=== PATIENT | female | born 1955 | race Caucasian/White ===

== ENCOUNTER 2023-07-14 13:52 | Emergency (ER) | payer MEDICARE, OTHER, BC, SELFPAY ==
[2023-07-14] VITALS (9 sets, daily range): BP systolic 141–175; BP diastolic 66–83; PULSE 70–73; RESP 13–22; TEMP 36.8; O2SAT 96; BMI 28.7
--- NOTE | 2023-07-14 14:10 | ED_ITS ---
<Statement entered by Tonya Pritchard DO - 07/14/23 22:19> I was consulted by the BRENDA, and we discussed the complexity of the problems being addressed. I approved the treatment and management plan for this patient's care in the emergency department, thus performing a substantive portion of the medical decision making. Tonya Pritchard DO Discharge Plan Disposition Patient Disposition: Home, Self-Care Condition: Good Prescriptions Prescriptions: New ciprofloxacin HCl 500 mg tablet 500 mg PO BID Qty: 20 0RF ketorolac 10 mg tablet 10 mg PO Q8H PRN (Reason: pain) 1 Days Qty: 10 0RF tamsulosin [Flomax] 0.4 mg capsule 0.4 mg PO HS Qty: 7 0RF oxycodone 5 mg tablet 5 mg PO Q8H PRN (Reason: pain) Qty: 12 0RF ondansetron 4 mg tablet,disintegrating 4 mg PO Q8H PRN (Reason: nausea and vomiting) 4 Days Qty: 12 0RF No Action aspirin 81 mg Tablet,Chewable 81 mg PO DAILY Referrals Follow up/Referrals: Provider,Referral, MD [Primary Care Provider] - See instructions Activity Restrictions/Add. Instructions Additional Instructions/Restrictions: Please strain all urine. Please save the stone should you catch it. Please call make a follow-up appointment with your PCP to recheck your sodium. Follow- up with PCP for any change or worsening of your symptoms or condition or return to ER as needed Clinical Impressions Clinical Impression: Complicated urinary tract infection, Hyponatremia, Ureterolithiasis Instructions Patient Instructions: DI for Acute Abdominal Pain Discharge ED Provider: Tonya Pritchard General Adult HPI <HELEN Maria - Last Filed: 07/14/23 18:45> General Chief complaint: Abdominal Pain Stated complaint: possible UTI Time Seen by Provider: 07/14/23 14:10 History of Present Illness HPI narrative: Patient presents with 6 days of bilateral lower quadrant pain, hematuria, left flank pain. Patient states that she gets frequent UTIs and called her PCP for an antibiotic but due to timing was not able to get any over the weekend. She spoke to PCP today who asked her to come to the ER for evaluation. Patient denies fever chest pain shortness of breath hemoptysis hematochezia melena nausea vomiting diarrhea but does endorse red urine Related Data Home Medications Medication Instructions Recorded Confirmed aspirin 81 mg chewable tablet 81 mg PO DAILY 07/14/23 07/14/23 Previous Rx's Medication Instructions Recorded ciprofloxacin HCl 500 mg tablet 500 mg PO BID #20 tabs 07/14/23 ketorolac 10 mg tablet 10 mg PO Q8H PRN pain 1 day #10 07/14/23 tabs ondansetron 4 mg disintegrating 4 mg PO Q8H PRN nausea and 07/14/23 tablet vomiting 4 days #12 tabs oxycodone 5 mg tablet 5 mg PO Q8H PRN pain #12 tabs 07/14/23 tamsulosin 0.4 mg capsule (Flomax) 0.4 mg PO HS #7 caps 07/14/23 Allergies Allergy/AdvReac Type Severity Reaction Status Date / Time Penicillins Allergy Intermediate Verified 07/14/23 14:31 Sulfa (Sulfonamide Allergy Intermediate Verified 07/14/23 14:31 Antibiotics) lisinopril Allergy Mild Cough Verified 07/14/23 14:50 PFSH <HELEN Maria - Last Filed: 07/14/23 18:45> [facility] Disclaimer: The information contained in this section may have been updated after the patient was seen, as this information can be updated by other users. Medical History (Updated 07/14/23 @ 18:42 by HELEN Maria) Hypertension Aortic dissection Social History (Updated 07/14/23 @ 18:45 by HELEN Maria) Smoking Status: Never smoker alcohol intake: never current occupational status: retired Travel in the last 8 weeks: None <HELEN Maria - Last Filed: 07/14/23 18:45> ROS Obtained: Yes Systems reviewed as appropriate & no additional complaints except as documented Physical Exam <HELEN Maria - Last Filed: 07/14/23 18:45> General General appearance: alert and in no apparent distress Head Head exam: atraumatic and normal inspection Eye Eye exam: Present normal appearance, PERRL and EOMI ENT ENT exam: Present normal exam, normal oropharynx and mucous membranes moist Neck Neck exam: Present normal inspection and full ROM Chest Chest inspection: Present normal inspection and symmetric chest wall rise Respiratory Respiratory exam: Present normal lung sounds bilaterally; Absent respiratory distress Cardiovascular Cardiovascular exam: Present regular rate and normal rhythm Abdominal Exam Abdominal exam: Present soft, tenderness and normal bowel sounds; Absent guarding or rebound Abdominal tenderness: Present RLQ and LLQ Extremities Exam Extremities exam: Present normal inspection and full ROM Back Exam Back exam: Present normal inspection, full ROM and CVA tenderness (L) Neurological Exam Neurological exam: Present alert and oriented X3 Psychiatric Psychiatric exam: Present normal affect and normal mood Skin Skin exam: Present warm, dry and normal color Medical Decision Making <HELEN Maria - Last Filed: 07/14/23 18:45> Medical Records Medical records reviewed: Yes I reviewed the patient's medical records. [place] Inquiry Pt receiving controlled substance: No Vital Signs: 07/14/23 14:19 07/14/23 14:30 07/14/23 15:30 Temperature 98.3 F Temperature Source Oral Pulse Rate 73 72 Pulse Rate [Right Radial] 72 Respiratory Rate 20 19 18 Blood Pressure 160/72 H Blood Pressure [Right Arm] 162/82 H Blood Pressure Mean 89 Blood Pressure Mean [Right Arm] 108 Blood Pressure Source Blood Pressure Source [Right Arm] Automatic Cuff Blood Pressure Position Blood Pressure Position [Right Arm] Sitting 02 Sat by Pulse Oximetry 96 Oxygen Delivery Method Room Air 07/14/23 16:01 07/14/23 17:00 07/14/23 17:30 Temperature Temperature Source Pulse Rate 71 70 Pulse Rate [Right Radial] Respiratory Rate 18 13 22 Blood Pressure 167/78 H 141/66 H 175/83 H Blood Pressure [Right Arm] Blood Pressure Mean 106 113 Blood Pressure Mean [Right Arm] Blood Pressure Source Blood Pressure Source [Right Arm] Blood Pressure Position Blood Pressure Position [Right Arm] 02 Sat by Pulse Oximetry Oxygen Delivery Method 07/14/23 18:01 07/14/23 18:30 07/14/23 19:06 Temperature 98.3 F Temperature Source Oral Pulse Rate 70 70 70 Pulse Rate [Right Radial] Respiratory Rate 18 18 20 Blood Pressure 145/67 H 164/72 H 164/72 H Blood Pressure [Right Arm] Blood Pressure Mean 124 102 Blood Pressure Mean [Right Arm] Blood Pressure Source Automatic Cuff Blood Pressure Source [Right Arm] Blood Pressure Position Sitting Blood Pressure Position [Right Arm] 02 Sat by Pulse Oximetry Oxygen Delivery Method Room Air Lab Data Lab results reviewed: Yes I reviewed the patient's lab results. Lab Results 07/14/23 13:57: Urine Color Donley, Urine Appearance Clear, Urine pH 7.0, Ur Specific [place] 1.010, Urine Protein 2+, Urine Glucose (UA) 1+, Urine Ketones Trace, Urine Blood Negative, Urine Nitrate Positive, Urine Bilirubin 1+ A, Urine Urobilinogen >=8.0, Ur Leukocyte Esterase 3+ A, Urine RBC 3-5, Urine WBC 20-50, Ur Squamous Epith Cells 3-5, Urine Bacteria 4+ 07/14/23 14:39: WBC 4.8, RBC 3.73 L, Hgb 11.6 L, Hct 35.8 L, MCV 96.1, MCH 31.1, MCHC 32.3, RDW 13.7, Plt Count 237, MPV 8.8, Neut % (Auto) 68.3, Lymph % (Auto) 21.8, [place] % (Auto) 7.0, Eos % (Auto) 2.3, Baso % (Auto) 0.7, Neut # (Auto) 3.3, Lymph # (Auto) 1.0, [place] # (Auto) 0.3, Eos # (Auto) 0.1, Baso # (Auto) 0.0, PT 10.5, INR 0.97, Sodium 126 L, Potassium 3.9, Chloride 92 L, Carbon Dioxide 31 H, Anion Gap 6.9, BUN 9, Creatinine 0.70, Estimated Creat Clear 60, Estimated GFR 83, Est GFR ( Amer) 100, Glucose 94, Calcium 8.6, Total Bilirubin 0.4, AST 35, ALT 23, Alkaline Phosphatase 98, Total Protein 6.3, Albumin 4.0, Globulin 2.3, Albumin/Globulin Ratio 1.7 07/14/23 15:00: Lactate 1.0 07/14/23 14:39 07/14/23 14:39 Orders (Tests/Meds): ED MEDICATIONS Discontinued Medications Generic Name Dose Route Start Last Admin Trade Name Freq PRN Reason Stop Dose Admin Acetaminophen 1,000 mg 07/14/23 14:18 07/14/23 14:38 Acetaminophen 1,000mg/100ml Vial IV 07/14/23 14:19 1,000 mg ONCE ONE Administration Lactated Ringer's 1,000 mls @ 999 mls/hr 07/14/23 14:18 07/14/23 14:38 Lactated Ringer's 1000 Ml Bag IV 07/14/23 15:18 999 mls/hr .Q1H1M ONE Administration Ceftriaxone Sodium 1 gm/ 50 mls @ 100 mls/hr 07/14/23 15:30 07/14/23 15:46 Sodium Chloride IV 07/24/23 15:29 100 mls/hr Q24H CHASE Administration Iopamidol 75 ml 07/14/23 16:02 07/14/23 16:03 Iopamidol-370 (76%);100ml Bottle IV 07/14/23 16:03 75 ml ONCE ONE Administration Ketorolac Tromethamine 15 mg 07/14/23 14:18 07/14/23 14:37 Ketorolac 30mg/Ml Vial IV 07/14/23 14:19 15 mg ONCE ONE Administration Ketorolac Tromethamine 15 mg 07/14/23 18:58 07/14/23 19:00 Ketorolac 30mg/Ml Vial IV 07/14/23 18:59 15 mg ONCE ONE Administration Sodium Chloride 10 ml 07/14/23 16:02 07/14/23 16:03 Sodium Chloride 0.9% 10ml Syr (Rad Only) IV 07/14/23 16:03 10 ml ONCE ONE Administration ORDERS Category Date Time Status CT abdomen pelvis w con Stat Cat Scan 07/14/23 14:18 Completed CBC w/Auto Diff [Complete Blood Count Auto Diff] Stat Lab 07/14/23 14:39 Completed CMP [Comprehensive Metabolic Panel] Stat Lab 07/14/23 14:39 Completed INR [Prothrombin Time INR] Stat Lab 07/14/23 14:39 Completed Lactic Acid Stat Lab 07/14/23 15:00 Completed UA [Urinalysis and Microscopic] Stat Lab 07/14/23 13:57 Completed Urine Culture(cathed specimen) Stat Micro 07/14/23 14:18 Received Medical Decision Narrative: In summary patient is a 68-year-old female who presents to the emergency department for evaluation of hematuria, bilateral lower quadrant pain and left flank pain. Patient is hemodynamically stable upon arrival, febrile. Physical exam is remarkable for bilateral lower quadrant tenderness and suprapubic tenderness along with left flank tenderness to percussion. Differential diagnosis includes kidney stone versus pyelonephritis versus cystitis versus complicated urinary tract infection etc. Initial workup will be conducted with otologic labs, CT scan of the abdomen pelvis with contrast, urine and urine culture. Initial interventions include Toradol Tylenol fluid bolus. Initial workup reviewed by me showed a normal white count with no shift, hyponatremia, and her urinalysis showed nitrite positive protein positive leukocyte Estrace positive urine but no blood suggesting that [id number] Azo is affecting the dipstick. CT scan of the abdomen pelvis shows via my informal interpretation mild hydroureteronephrosis and a nonobstructing stone in the mid distal right ureter, bladder wall is thickened and bladder is incompletely distended and the radiologist read is pending. Given those findings I called and discussed patient management with Dr. Del Rosario urology of [facility] and he advised that unless patient was hemodynamically unstable she could be initially managed outpatient with p.o. antibiotics and straining of all urine. Should any of those circumstances change she could obviously be admitted or transferred. He has shared decision making I discussed those options with the patient who was agreeable to attempt outpatient management. Upon repeat evaluation patient has no neurologic symptoms of hyponatremia and [place] Coma Score is 15 although I do not know whether this is acute or chronic as I have no labs to reference. Given this patient was given a dose of Rocephin here and a prescription for Cipro, Flomax and Toradol was called into her pharmacy. Patient advised to strain all urine. Patient was advised to follow- up with her PCP for recheck of her sodium. Patient to return to PCP or ER for any worsening and change in her symptoms including fever etc. <Jovi Fuentes MD - Last Filed: 07/15/23 07:24> Vital Signs: 07/14/23 14:19 07/14/23 14:30 07/14/23 15:30 Temperature 98.3 F Temperature Source Oral Pulse Rate 73 72 Pulse Rate [Right Radial] 72 Respiratory Rate 20 19 18 Blood Pressure 160/72 H Blood Pressure [Right Arm] 162/82 H Blood Pressure Mean 89 Blood Pressure Mean [Right Arm] 108 Blood Pressure Source Blood Pressure Source [Right Arm] Automatic Cuff Blood Pressure Position Blood Pressure Position [Right Arm] Sitting 02 Sat by Pulse Oximetry 96 Oxygen Delivery Method Room Air 07/14/23 16:01 07/14/23 17:00 07/14/23 17:30 Temperature Temperature Source Pulse Rate 71 70 Pulse Rate [Right Radial] Respiratory Rate 18 13 22 Blood Pressure 167/78 H 141/66 H 175/83 H Blood Pressure [Right Arm] Blood Pressure Mean 106 113 Blood Pressure Mean [Right Arm] Blood Pressure Source Blood Pressure Source [Right Arm] Blood Pressure Position Blood Pressure Position [Right Arm] 02 Sat by Pulse Oximetry Oxygen Delivery Method 07/14/23 18:01 07/14/23 18:30 07/14/23 19:06 Temperature 98.3 F Temperature Source Oral Pulse Rate 70 70 70 Pulse Rate [Right Radial] Respiratory Rate 18 18 20 Blood Pressure 145/67 H 164/72 H 164/72 H Blood Pressure [Right Arm] Blood Pressure Mean 124 102 Blood Pressure Mean [Right Arm] Blood Pressure Source Automatic Cuff Blood Pressure Source [Right Arm] Blood Pressure Position Sitting Blood Pressure Position [Right Arm] 02 Sat by Pulse Oximetry Oxygen Delivery Method Room Air Lab Data Lab Results 07/14/23 13:57: Urine Color Donley, Urine Appearance Clear, Urine pH 7.0, Ur Specific [place] 1.010, Urine Protein 2+, Urine Glucose (UA) 1+, Urine Ketones Trace, Urine Blood Negative, Urine Nitrate Positive, Urine Bilirubin 1+ A, Urine Urobilinogen >=8.0, Ur Leukocyte Esterase 3+ A, Urine RBC 3-5, Urine WBC 20-50, Ur Squamous Epith Cells 3-5, Urine Bacteria 4+ 07/14/23 14:39: WBC 4.8, RBC 3.73 L, Hgb 11.6 L, Hct 35.8 L, MCV 96.1, MCH 31.1, MCHC 32.3, RDW 13.7, Plt Count 237, MPV 8.8, Neut % (Auto) 68.3, Lymph % (Auto) 21.8, [place] % (Auto) 7.0, Eos % (Auto) 2.3, Baso % (Auto) 0.7, Neut # (Auto) 3.3, Lymph # (Auto) 1.0, [place] # (Auto) 0.3, Eos # (Auto) 0.1, Baso # (Auto) 0.0, PT 10.5, INR 0.97, Sodium 126 L, Potassium 3.9, Chloride 92 L, Carbon Dioxide 31 H, Anion Gap 6.9, BUN 9, Creatinine 0.70, Estimated Creat Clear 60, Estimated GFR 83, Est GFR ( Amer) 100, Glucose 94, Calcium 8.6, Total Bilirubin 0.4, AST 35, ALT 23, Alkaline Phosphatase 98, Total Protein 6.3, Albumin 4.0, Globulin 2.3, Albumin/Globulin Ratio 1.7 07/14/23 15:00: Lactate 1.0 Orders (Tests/Meds): ED MEDICATIONS Discontinued Medications Generic Name Dose Route Start Last Admin Trade Name Freq PRN Reason Stop Dose Admin Acetaminophen 1,000 mg 07/14/23 14:18 07/14/23 14:38 Acetaminophen 1,000mg/100ml Vial IV 07/14/23 14:19 1,000 mg ONCE ONE Administration Lactated Ringer's 1,000 mls @ 999 mls/hr 07/14/23 14:18 07/14/23 14:38 Lactated Ringer's 1000 Ml Bag IV 07/14/23 15:18 999 mls/hr .Q1H1M ONE Administration Ceftriaxone Sodium 1 gm/ 50 mls @ 100 mls/hr 07/14/23 15:30 07/14/23 15:46 Sodium Chloride IV 07/24/23 15:29 100 mls/hr Q24H CHASE Administration Iopamidol 75 ml 07/14/23 16:02 07/14/23 16:03 Iopamidol-370 (76%);100ml Bottle IV 07/14/23 16:03 75 ml ONCE ONE Administration Ketorolac Tromethamine 15 mg 07/14/23 14:18 07/14/23 14:37 Ketorolac 30mg/Ml Vial IV 07/14/23 14:19 15 mg ONCE ONE Administration Ketorolac Tromethamine 15 mg 07/14/23 18:58 07/14/23 19:00 Ketorolac 30mg/Ml Vial IV 07/14/23 18:59 15 mg ONCE ONE Administration Sodium Chloride 10 ml 07/14/23 16:02 07/14/23 16:03 Sodium Chloride 0.9% 10ml Syr (Rad Only) IV 07/14/23 16:03 10 ml ONCE ONE Administration ORDERS Category Date Time Status CT abdomen pelvis w con Stat Cat Scan 07/14/23 14:18 Completed CBC w/Auto Diff [Complete Blood Count Auto Diff] Stat Lab 07/14/23 14:39 Completed CMP [Comprehensive Metabolic Panel] Stat Lab 07/14/23 14:39 Completed INR [Prothrombin Time INR] Stat Lab 07/14/23 14:39 Completed Lactic Acid Stat Lab 07/14/23 15:00 Completed UA [Urinalysis and Microscopic] Stat Lab 07/14/23 13:57 Completed Urine Culture(cathed specimen) Stat Micro 07/14/23 14:18 Received Medical Decision Narrative: In summary patient is a 68-year-old female who presents to the emergency department for evaluation of hematuria, bilateral lower quadrant pain and left flank pain. Patient is hemodynamically stable upon arrival, febrile. Physical exam is remarkable for bilateral lower quadrant tenderness and suprapubic tenderness along with left flank tenderness to percussion. Differential diagnosis includes kidney stone versus pyelonephritis versus cystitis versus complicated urinary tract infection etc. Initial workup will be conducted with otologic labs, CT scan of the abdomen pelvis with contrast, urine and urine culture. Initial interventions include Toradol Tylenol fluid bolus. Initial workup reviewed by me showed a normal white count with no shift, hyponatremia, and her urinalysis showed nitrite positive protein positive leukocyte Estrace positive urine but no blood suggesting that [id number] Azo is affecting the dipstick. CT scan of the abdomen pelvis shows via my informal interpretation mild hydroureteronephrosis and a nonobstructing stone in the mid distal right ureter, bladder wall is thickened and bladder is incompletely distended and the radiologist read is pending. Given those findings I called and discussed patient management with Dr. Del Rosario urology of [facility] and he advised that unless patient was hemodynamically unstable she could be initially managed outpatient with p.o. antibiotics and straining of all urine. Should any of those circumstances change she could obviously be admitted or transferred. He has shared decision making I discussed those options with the patient who was agreeable to attempt outpatient management. Upon repeat evaluation patient has no neurologic symptoms of hyponatremia and [place] Coma Score is 15 although I do not know whether this is acute or chronic as I have no labs to reference. Given this patient was given a dose of Rocephin here and a prescription for Cipro, Flomax and Toradol was called into her pharmacy. Patient advised to strain all urine. Patient was advised to follow- up with her PCP for recheck of her sodium. Patient to return to PCP or ER for any worsening and change in her symptoms including fever etc. I was consulted by the BRENDA, and we discussed the complexity of the problems being addressed. I approved the treatment and management plan for this patient?s care in the Emergency Department, thus performing a substantive portion of the medical decision making. Jovi Fuentes MD Critical Care <HELEN Maria - Last Filed: 07/14/23 18:45> Critical Care Time Critical Care Time: No
--- NOTE | 2023-07-14 14:18 | CT_ITS ---
PROCEDURE INFORMATION: Exam: CT Abdomen And Pelvis With Contrast Exam date and time: 07/14/2023 3:42 PM Age: 68 years old Clinical indication: Abdominal pain; Additional info: Hematuria, left flank pain TECHNIQUE: Imaging protocol: Computed tomography of the abdomen and pelvis with contrast. Radiation optimization: All CT scans at this facility use at least one of these dose optimization techniques: automated exposure control; mA and/or kV adjustment per patient size (includes targeted exams where dose is matched to clinical indication); or iterative reconstruction. Contrast material: ISOVUE; Contrast volume: 75 ml; Contrast route: IV; COMPARISON: No relevant prior studies available. FINDINGS: Lungs: Bibasilar atelectasis versus parenchymal scarring. Liver: Hepatic granuloma Gallbladder and bile ducts: Cholecystectomy Pancreas: Pancreas unremarkable Spleen: The spleen is unremarkable. Adrenal glands: Adrenal glands unremarkable. Kidneys and ureters: No hydronephrosis. Mild right hydroureteronephrosis. Demonstration of 2 mm nonobstructing calculus in the mid right ureter. Stomach and bowel: mild-moderate stool burden Appearance of the proximal stomach compatible with Funmi fundoplication. Appendix: No evidence of appendicitis. Intraperitoneal space: Unremarkable. No free air. No significant fluid collection. Vasculature: Scattered regions of atherosclerotic vascular calcification within the abdominal aorta and common iliac arteries. Lymph nodes: Unremarkable. No enlarged lymph nodes. Urinary bladder: Mild thickening of the bladder wall may reflect incomplete distension. Could not exclude changes of cystitis. Reproductive: Hysterectomy Bones/joints: Lumbar spondylosis with multilevel disc degeneration. Soft tissues: Unremarkable. IMPRESSION: 1. Mild right hydroureteronephrosis. Demonstration of 2 mm nonobstructing calculus in the mid right ureter. 2. Mild thickening of the bladder wall may reflect incomplete distension. Could not exclude changes of cystitis.
[2023-07-14 14:29] LABS: Microscopic, Urine URINE MICROSCOPIC (MICROSCOPIC)
[2023-07-14 14:35] LABS: Appearance,Urine CLEAR (Clear); Blood, Urine Negative (Negative); Color,Urine ORANGE (Yellow); Glucose,Urine (UA) 1+ (Negative); Ketones,Urine TRACE (Negative); Leukocyte Esterase,Urine 3+ (Negative); Nitrate,Urine POSITIVE (Negative); Protein,Urine 2+ (Negative); Urobilinogen,Urine >=8.0 EU/dl (0.2)
[2023-07-14] MEDS: KETOROLAC 30MG/ML VIAL 15 MG IV ×2 (14:37→19:00)
[2023-07-14] MEDS: ACETAMINOPHEN 1,000MG/100ML VIAL 1000 MG IV (14:38)
[2023-07-14] MEDS: LACTATED RINGERS 1000ML 1,000 ML 999 ML IV (14:38)
[2023-07-14 14:39] LABS: Bilirubin,Urine 1+ (Negative)
[2023-07-14 14:50] LABS: Basophils % 0.7 % (0.1-2.0); Eosinophils # 0.1 K/mm3 (0.0-0.4); Eosinophils % 2.3 % (0.1-12.0); Hematocrit 35.8 % (37.0-47.0); Hemoglobin 11.6 g/dL (12.2-16.2); Lymphocytes % 21.8 % (10-50); Mean Corpuscular HGB Conc 32.3 g/dL (31.8-35.4); Mean Corpuscular Hemoglobin 31.1 pg (27.0-31.2); Mean Corpuscular Volume 96.1 fl (81-99); Mean Platelet Volume 8.8 fl (7.4-10.4); Monocytes # 0.3 K/mm3 (0.1-1.0); Neutrophils # 3.3 K/mm3 (1.8-7.8); Neutrophils % 68.3 % (37.0-80.0); Platelet Count 237 K/mm3 (142-424); Red Blood Count 3.73 M/mm3 (4.20-5.40); Red Cell Distribution Width 13.7 % (11.5-17.5); White Blood Count 4.8 K/mm3 (4.8-10.8)
[2023-07-14 14:58] LABS: Chloride 92 mmol/L (98-107); Sodium 126 mmol/L (136-145)
[2023-07-14 14:59] LABS: Potassium 3.9 mmoL/L (3.5-5.1)
[2023-07-14 15:01] LABS: Alanine Aminotransferase 23 U/L (12-78); Albumin/Globulin Ratio 1.7 (1.1-1.8); Alkaline Phosphatase 98 U/L (38-126); Anion Gap 6.9 mEq/L (5-15); Aspartate Amino Transferase 35 U/L (14-36); Bilirubin,Total 0.4 mg/dl (0.2-1.3); Blood Urea Nitrogen 9 mg/dl (7-17); Calcium 8.6 mg/dl (8.4-10.2); Carbon Dioxide 31 mmol/L (22.0-30.0); Creatinine Clearance Estimated 60 mL/min (50-200); Estimated Glomerular Filt Rate 83 ml/min (>60); GFR (African American) 100 ML/MIN (>60); Globulin 2.3 g/dL (1.3-3.2); Glucose 94 mg/dl (74-100); Total Protein,Serum 6.3 g/dl (6.3-8.2)
[2023-07-14 15:02] LABS: INR 0.97 (0.9-1.1); Prothrombin Time 10.5 seconds (10.1-12.5)
[2023-07-14 15:27] LABS: Bacteria,Urine 4+ /lpf; WBC,Urine 20-50 #/hpf (0-3)
[2023-07-14] MEDS: CEFTRIAXONE SODIUM 1 GM in 0.9 % SODIUM CHLORIDE 50 ML IV (15:46)
[2023-07-14] MEDS: SODIUM CHLORIDE 0.9% 10ML SYR (RAD ONLY) 10 ML IV (16:03)
[2023-07-14] MEDS: IOPAMIDOL-370 (76%);100ML BOTTLE 75 ML IV (16:03)
--- NOTE | 2023-07-14 17:07 | PC.NURSE ---
Pt ambulatory to bathroom and back to bed
--- NOTE | 2023-07-14 17:27 | PC.NURSE ---
placed call to [facility] for transfer for urology.
--- NOTE | 2023-07-14 17:40 | PC.NURSE ---
Pt ambulatory to [facility] without assistance.
--- NOTE | 2023-07-14 17:59 | PC.NURSE ---
placed call to [facility] transfer [place] for transfer for urology
--- NOTE | 2023-07-14 18:27 | PC.NURSE ---
st galindo Del Rosario on with Yahaira CERVANTES
--- NOTE | 2023-07-19 02:36 | PC.NURSE ---
notified Dr vela of preliminary urine culture no new orders @ this time. pending sensitivity and final results.
== END 2023-07-14 19:06 | disposition home or self-care (01) ==
PROVIDERS: Physician Assistant; Emergency Provider Emergency Medicine
DX: E87.1 Hypo-osmolality and hyponatremia (principal); N39.0 Urinary tract infection, site not specified; B96.1 Klebsiella pneumoniae [K. pneumoniae] as the cause of diseases classified elsewhere; N20.1 Calculus of ureter; N13.4 Hydroureter; I10 Essential (primary) hypertension; R10.30 Lower abdominal pain, unspecified
CPT/HCPCS: 36415; 74177; 80053; 81001; 83605; 85025; 85610; 87086; 96361; 96365; 96375; 96376; 99285; J0131; J0696; Q9967

== ENCOUNTER 2023-08-10 17:39 | Emergency (ER) | payer MEDICARE, MEDICAID, SELFPAY ==
[2023-08-10] VITALS (8 sets, daily range): BP systolic 129–162; BP diastolic 60–78; PULSE 67–75; RESP 16; TEMP 36.8; O2SAT 95–99; BMI 28.1
--- NOTE | 2023-08-10 18:11 | CT_ITS ---
PROCEDURE INFORMATION: Exam: CTA Abdomen and Pelvis With Contrast Exam date and time: 08/10/2023 7:37 PM Age: 68 years old Clinical indication: Abdominal pain; Generalized; Additional info: Abd pain, HX of dissection TECHNIQUE: Imaging protocol: Computed tomographic angiography of the abdomen and pelvis with contrast. Exam focused on the arteries. 3D rendering (Not supervised by radiologist): MIP and/or 3D reconstructed images were created by the technologist. Radiation optimization: All CT scans at this facility use at least one of these dose optimization techniques: automated exposure control; mA and/or kV adjustment per patient size (includes targeted exams where dose is matched to clinical indication); or iterative reconstruction. Contrast material: ISOVUE 370; Contrast volume: 100 ml; Contrast route: INTRAVENOUS (IV); COMPARISON: CT ABDOMEN PELVIS W CON 05/17/2023 15:42 FINDINGS: Aorta: The aorta demonstrates mild atherosclerotic disease. No aortic dissection. Celiac trunk and mesenteric arteries: No occlusion or significant stenosis. Renal arteries: Accessory left renal artery. Right iliac arteries: No occlusion or significant stenosis. Left iliac arteries: No occlusion or significant stenosis. 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 Liver: No mass. Gallbladder and bile ducts: Gallbladder is absent. Pancreas: Unremarkable. No mass. No ductal dilation. Spleen: Unremarkable. No splenomegaly. Adrenal glands: There is a left adrenal nodule measuring 9 mm in short axis. No follow-up imaging is warranted for a lesion of this size. Kidneys and ureters: Low attenuation renal lesions measuring up to 8 mm in diameter are incompletely characterized, but are likely cysts. No followup imaging is warranted. Stomach and bowel: Probable Funmi fundoplication. Gas-filled and mildly dilated segments of small bowel without a transition point. Appendix: The appendix is likely surgically absent. Intraperitoneal space: Unremarkable. No free air. No significant fluid collection. Lymph nodes: Unremarkable. No enlarged lymph nodes. Urinary bladder: Limited evaluation of the urinary bladder due to low urine volume. Reproductive: Status post hysterectomy. Bones/joints: No acute fracture. Soft tissues: Tiny fat containing umbilical hernia. Other findings: Please see separate report for CT chest. Stigmata of old granulomatous disease. IMPRESSION: 1. Limited evaluation of the urinary bladder due to low urine volume. Please exclude infection clinically. 2. Gas-filled and mildly dilated segments of small bowel without a transition point. This may represent ileus. Please exclude low-grade enterocolitis. 3. No aortic dissection.
--- NOTE | 2023-08-10 18:11 | CT_ITS ---
PROCEDURE INFORMATION: Exam: CTA Chest With Contrast Exam date and time: 08/10/2023 7:37 PM Age: 68 years old Clinical indication: Pain; Chest pressure; Additional info: Cp, back pain, HX aortic dissection TECHNIQUE: Imaging protocol: Computed tomographic angiography of the chest with contrast. Exam focused on the arteries. 3D rendering (Not supervised by radiologist): MIP and/or 3D reconstructed images were created by the technologist. Radiation optimization: All CT scans at this facility use at least one of these dose optimization techniques: automated exposure control; mA and/or kV adjustment per patient size (includes targeted exams where dose is matched to clinical indication); or iterative reconstruction. Contrast material: ISOVUE 370; Contrast volume: 100 ml; Contrast route: INTRAVENOUS (IV); COMPARISON: CT ANGIO ABDOMEN PELVIS 10/08/2023 19:37 FINDINGS: Tubes, catheters and devices: Endograft repair of the thoracic aorta from the mid arch to the distal descending thoracic aorta. Pulmonary arteries: Normal. No pulmonary emboli. 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 Aorta: Unremarkable. No aortic aneurysm. No aortic dissection. Thyroid: Postsurgical changes of the thyroid. Lungs: Mild centrilobular emphysema. Mild scarring and atelectasis in the lower lungs. Pleural spaces: Unremarkable. No pneumothorax. No pleural effusion. Heart: Cardiomegaly. Mitral valve calcifications. Small left-sided pericardial cyst, unchanged. Coronary arteries: Coronary artery calcifications. Lymph nodes: Unremarkable. No enlarged lymph nodes. Bones/joints: Unremarkable. No acute fracture. Soft tissues: Unremarkable. Other findings: Please see separate report for abdomen/pelvis. Stigmata of old granulomatous disease. IMPRESSION: Endograft repair of the thoracic aorta from the mid arch to the distal descending thoracic aorta. The hardware appears patent. There is no new dissection. COMMENTS: The presence of pulmonary emphysema on CT is an independent risk factor for lung cancer. In the absence of a history or active diagnosis of lung cancer, it is recommended that this patient with emphysema be evaluated for enrollment in a low dose CT lung cancer screening program.
--- NOTE | 2023-08-10 18:14 | XR_ITS ---
PROCEDURE INFORMATION: Exam: XR Chest Exam date and time: 08/10/2023 7:39 PM Age: 68 years old Clinical indication: Shortness of breath; Additional info: Cp TECHNIQUE: Imaging protocol: Radiologic exam of the chest. Views: 1 view. COMPARISON: CT ANGIO CHEST 10/08/2023 19:37 FINDINGS: Tubes, catheters and devices: Thoracic aortic endograft. Lungs: Mild scarring and atelectasis in the lower lungs. Pleural spaces: Unremarkable. No pleural effusion. No pneumothorax. Heart/Mediastinum: Borderline cardiomegaly. Bones/joints: Unremarkable. IMPRESSION: No acute findings.
--- NOTE | 2023-08-10 18:15 | HMH.EDGENADL ---
Discharge Plan Disposition Patient Disposition: Home, Self-Care Condition: Fair Prescriptions Prescriptions: New methocarbamol 500 mg tablet 500 mg PO TID PRN (Reason: pain) 5 Days Qty: 20 0RF lidocaine 5 % adhesive patch,medicated 1 patch topical Q24H 5 Days Qty: 15 0RF Rx Instructions: leave on most painful area for up to 12 hrs No Action aspirin 81 mg Tablet,Chewable 81 mg PO DAILY ciprofloxacin HCl 500 mg tablet 500 mg PO BID Qty: 20 0RF ketorolac 10 mg tablet 10 mg PO Q8H PRN (Reason: pain) 1 Days Qty: 10 0RF tamsulosin [Flomax] 0.4 mg capsule 0.4 mg PO HS Qty: 7 0RF oxycodone 5 mg tablet 5 mg PO Q8H PRN (Reason: pain) Qty: 12 0RF ondansetron 4 mg tablet,disintegrating 4 mg PO Q8H PRN (Reason: nausea and vomiting) 4 Days Qty: 12 0RF Referrals Follow up/Referrals: Kaan Escobar DO [Primary Care Provider] - See instructions Audrey Shepherd APRN [Staff Physician] - See instructions (Patient with history of IBS. Needs to follow-up with new earth science technical officer as soon as possible.) Activity Restrictions/Add. Instructions Additional Instructions/Restrictions: You have been evaluated in the ED for your complaints. You may follow-up with your PCP in the next 3 to 5 days. Please return to ED for any new or worsening symptoms. I have written for Robaxin and lidocaine patches to assist with pain between her shoulder blades. Please use these as needed. Please keep your appointment with your new PCP on this upcoming as discussed. They can address your chronic back pain. I have also placed referral to gastroenterology with Cora Ventura however he may follow-up with a earth science technical officer of your choosing concerning your IBS. Clinical Impressions Clinical Impression: Abdominal pain, Shoulder blade pain, Blood in stool, Diarrhea Instructions Patient Instructions: DI for Low Back Pain Discharge ED Provider: Willi Ren Adult [facility] General Chief complaint: Back Pain/Injury Stated complaint: Right side pain,fever,pain in shoulders Time Seen by Provider: 08/10/23 17:59 Mode of Arrival: Ambulatory Source of Information: Patient Limitations: No Limitations Description of Symptoms (Recalled from ER Triage Doc. by RN): Patient complaint of pain between her shoulder blades for 2 years. States that she has been trying to get her PCP to do xrays and they haven't been able to complete them. States she presents to the er because the pain has gotten worse. History of Present Illness HPI narrative: 68-year-old female with past medical history significant for anxiety, depression, PTSD, coronary artery disease, ureterolithiasis, hypertension, IBS, cholecystectomy, history of aortic dissection in 2013 with repair, presents today for evaluation concerning pain between her shoulder blades that has been worsening over the past couple of days. She also reports mid epigastric abdominal pain as well as right upper quadrant abdominal pain over the past day. She states over the weekend she was constipated and took Dulcolax and had a large bowel movement on yesterday. She states that she is also noted bright red blood in her stool today noting about a cup full in amount. She also states that she had a fever of 104.2 ?F. Reports intermittent chest pain over the past week. Denies any shortness of breath, dysuria, hematuria or any other associated symptoms at this time. Related Data Home Medications Medication Instructions Recorded Confirmed aspirin 81 mg chewable tablet 81 mg PO DAILY 07/14/23 07/14/23 Previous Rx's Medication Instructions Recorded ciprofloxacin HCl 500 mg tablet 500 mg PO BID #20 tabs 07/14/23 ketorolac 10 mg tablet 10 mg PO Q8H PRN pain 1 day #10 07/14/23 tabs ondansetron 4 mg disintegrating 4 mg PO Q8H PRN nausea and 07/14/23 tablet vomiting 4 days #12 tabs oxycodone 5 mg tablet 5 mg PO Q8H PRN pain #12 tabs 07/14/23 tamsulosin 0.4 mg capsule (Flomax) 0.4 mg PO HS #7 caps 07/14/23 lidocaine 5 % topical patch 1 patch topical Q24H 5 days #15 ea 08/10/23 methocarbamol 500 mg tablet 500 mg PO TID PRN pain 5 days #20 08/10/23 tabs Allergies Allergy/AdvReac Type Severity Reaction Status Date / Time Penicillins Allergy Intermediate Verified 07/14/23 14:31 Sulfa (Sulfonamide Allergy Intermediate Verified 07/14/23 14:31 Antibiotics) lisinopril Allergy Mild Cough Verified 07/14/23 14:50 PFSH PFSH Disclaimer: The information contained in this section may have been updated after the patient was seen, as this information can be updated by other users. Medical History (Updated 08/10/23 @ 21:52 by Willi Ren DO) Hypertension Aortic dissection Social History (Updated 07/14/23 @ 18:45 by HELEN Maria) Smoking Status: Unknown if ever smoked alcohol intake: never current occupational status: retired Travel in the last 8 weeks: None ROS Obtained: Yes All systems reviewed & no additional complaints except as documented Physical Exam General General appearance: alert and in no apparent distress Head Head exam: atraumatic and normocephalic Eye Eye exam: Present normal appearance, PERRL and EOMI ENT ENT exam: Present normal oropharynx and mucous membranes moist Neck Neck exam: Present full ROM; Absent meningismus Respiratory Respiratory exam: Absent respiratory distress, wheezes, stridor or accessory muscle use Cardiovascular Cardiovascular exam: Present normal rhythm Abdominal Exam Abdominal exam: Present soft and tenderness (Midepigastric and right upper quadrant); Absent distention, guarding, rebound or rigidity Back Exam Back exam: Present tenderness (Tenderness to palpation across the shoulder blades.) Neurological Exam Neurological exam: Present alert, oriented X3 and CN II-XII intact; Absent motor sensory deficit Psychiatric Psychiatric exam: Present normal affect and normal mood Skin Skin exam: Present warm and dry Medical Decision Making Medical Records Medical records reviewed: Yes I reviewed the patient's medical records. Cail Inquiry Pt receiving controlled substance: No Cail was queried for this patient: No Vital Signs: 08/10/23 17:42 08/10/23 18:16 Temperature 98.2 F Temperature Source Oral Pulse Rate 67 Pulse Rate [Radial] 68 Respiratory Rate 16 Blood Pressure 137/63 Blood Pressure [Right Arm] 141/74 H Blood Pressure Mean [Right Arm] 96 Blood Pressure Source [Right Arm] Automatic Cuff Blood Pressure Position [Right Arm] Sitting 02 Sat by Pulse Oximetry 99 95 Oxygen Delivery Method Room Air Room Air Lab Data Lab Results 08/10/23 18:20: WBC 3.7 L, RBC 3.60 L, Hgb 11.1 L, Hct 34.6 L, MCV 96.1, MCH 30.9, MCHC 32.1, RDW 14.1, Plt Count 238, MPV 8.8, Neut % (Auto) 59.1, Lymph % (Auto) 26.8, Borden % (Auto) 11.2 H, Eos % (Auto) 2.2, Baso % (Auto) 0.7, Neut # (Auto) 2.2, Lymph # (Auto) 1.0, Borden # (Auto) 0.4, Eos # (Auto) 0.1, Baso # (Auto) 0.0, PT 10.3, INR 0.95, Sodium 132 L, Potassium 3.4 L, Chloride 100, Carbon Dioxide 27, Anion Gap 8.4, BUN 20 H, Creatinine 0.70, Estimated Creat Clear 59, Estimated GFR 83, Est GFR ( Amer) 100, Glucose 131 H, Calcium 8.8, Total Bilirubin 0.4, AST 30, ALT 24, Alkaline Phosphatase 78, Troponin I < 0.01, Total Protein 6.2 L, Albumin 3.9, Globulin 2.3, Albumin/Globulin Ratio 1.7, Lipase 61 08/10/23 20:58: Lactate 0.9 08/10/23 18:20 08/10/23 18:20 Orders (Tests/Meds): ED MEDICATIONS Generic Name Dose Route Start Last Admin Trade Name Freq PRN Reason Stop Dose Admin Sodium Chloride 10 ml 08/10/23 19:38 08/10/23 19:41 Sodium Chloride 0.9% 10ml Syr (Rad Only) IV 09/09/23 19:37 10 ml NEEDED PRN Administration Maintain IV Site Discontinued Medications Generic Name Dose Route Start Last Admin Trade Name Freq PRN Reason Stop Dose Admin Iopamidol 100 ml 08/10/23 19:38 08/10/23 19:41 Iopamidol-370 (76%);100ml Bottle IV 08/10/23 19:39 100 ml ONCE ONE Administration Morphine Sulfate 4 mg 08/10/23 18:14 08/10/23 18:23 Morphine 4mg/Ml Syringe IV 08/10/23 18:15 4 mg ONCE ONE Administration Ondansetron HCl 4 mg 08/10/23 18:14 08/10/23 18:23 Ondansetron 4mg/2ml Vial IV 08/10/23 18:15 4 mg ONCE ONE Administration Oxycodone HCl 5 mg 08/10/23 21:39 08/10/23 21:48 Oxycodone 5mg Immediate Release Tablet PO 08/10/23 21:40 5 mg ONCE ONE Administration Sodium Chloride 50 ml 08/10/23 19:38 08/10/23 19:41 0.9 % Sodium Chloride 50 Ml Vial IV 08/10/23 19:39 50 ml ONCE ONE Administration ORDERS Category Date Time Status CT angio abdomen pelvis Stat Cat Scan 08/10/23 18:11 Completed CTA Chest [CT angio chest - dissection] Stat Cat Scan 08/10/23 18:11 Completed CXR --portable [XR chest portable] Stat Exams 08/10/23 18:14 Completed CBC w/Auto Diff [Complete Blood Count Auto Diff] Stat Lab 08/10/23 18:20 Completed CMP [Comprehensive Metabolic Panel] Stat Lab 08/10/23 18:20 Completed Lactic Acid Stat Lab 08/10/23 20:58 Completed Lipase Stat Lab 08/10/23 18:20 Completed PT/INR [Prothrombin Time INR] Stat Lab 08/10/23 18:20 Completed Trop I [Troponin I] Stat Lab 08/10/23 18:20 Completed Troponin I Q3H Lab 08/10/23 21:15 Ordered Troponin I Q3H Lab 08/11/23 00:15 Ordered ECG Data Tracing #1: I reviewed this ECG and interpreted as documented below: EKG personally inter by me. Normal sinus rhythm with a rate of 63 bpm. No ischemic changes. QTc 436. HEART Score History (anamnesis): Slightly suspicious ECG: Normal Age: >65 years Risk factors: Atherosclerosis history Troponin: </= normal limit HEART Score: 4 Medical Decision Narrative: 68-year-old female with past medical history significant for anxiety, depression, PTSD, coronary artery disease, ureterolithiasis, hypertension, IBS, cholecystectomy, history of aortic dissection in 2013 with repair, presents today for evaluation concerning pain between her shoulder blades that has been worsening over the past couple of days. She also reports mid epigastric abdominal pain as well as right upper quadrant abdominal pain over the past day. She states over the weekend she was constipated and took Dulcolax and had a large bowel movement on yesterday. She states that she is also noted bright red blood in her stool today noting about a cup full in amount. She also states that she had a fever of 104.2 ?F. Reports intermittent chest pain over the past week. On assessment, patient was medically stable and in no acute distress. She was afebrile. Chest was clear to auscultation bilaterally. Blood pressure with systolics in the 140s. The abdomen was soft and nondistended however was tender in the midepigastric and right upper quadrant regions. She did have tenderness across the shoulder blades bilaterally without external signs of trauma. No lower extremity edema. Other exam findings unremarkable differential diagnoses include but limited to aortic dissection, aortic aneurysm, ACS, musculoskeletal pain, GI bleed, seizure, among others. Patient's lab work today showed a WBC of 3.7, stable anemia with hemoglobin of 11.1. PT/INR 15.3/0.95. Sodium 132. Potassium 3.4. Lactate within range at 0.9. Lipase within range at 61. CT of the chest did not show any acute abnormalities. CT abdomen pelvis with findings concerning for possible ileus with enterocolitis. I did speak with Dr. Wick, general surgery on-call and discussed management. He believes the patient's symptoms today are likely due to an enteritis given her workup and findings. On reassessment she remains medically stable and in no acute distress. Abdominal pain improved however she is still having pain between her shoulder blades. She has an appointment this with her new PCP and will discuss her chronic pain between her shoulder blades during that time. I have also provided her with a referral for a new earth science technical officer as she does not have a provider in the setting of her IBS. I discussed that her management today is supportive. I will send her home with lidocaine patches and Robaxin to assist with her pain between her shoulder blades. She will continue to drink fluids as tolerated. She has been able to tolerate oral intake with solids and liquids while in the ED. She verbalized understanding and agreed with plan. Provided with return ED precautions. Subsequently discharged home in medically stable and in no acute distress Critical Care Critical Care Time Critical Care Time: No
[2023-08-10] MEDS: MORPHINE 4MG/ML SYRINGE 4 MG IV (18:23)
[2023-08-10] MEDS: ONDANSETRON 4MG/2ML VIAL 4 MG IV (18:23)
--- NOTE | 2023-08-10 18:31 | ECG_ITS ---
APPROVED REPORT Exam: Resting ECG HR:63 bpm ECG Measurements Heart Rate 63 AXES HI 152 P 71 QRSd 93 QRS 25 QT 429 T 58 QTc 436 Conclusion SINUS RHYTHM SEPTAL MYOCARDIAL INFARCTION , PROBABLY OLD [40+ ms Q WAVE IN V1/V2] ABNORMAL ECG UNCONFIRMED REPORT Electronically signed by : JENNY HESTER, 08/10/2023 19:10:31
[2023-08-10 18:36] LABS: Basophils % 0.7 % (0.1-2.0); Eosinophils # 0.1 K/mm3 (0.0-0.4); Eosinophils % 2.2 % (0.1-12.0); Hematocrit 34.6 % (37.0-47.0); Hemoglobin 11.1 g/dL (12.2-16.2); Lymphocytes % 26.8 % (10-50); Mean Corpuscular HGB Conc 32.1 g/dL (31.8-35.4); Mean Corpuscular Hemoglobin 30.9 pg (27.0-31.2); Mean Corpuscular Volume 96.1 fl (81-99); Mean Platelet Volume 8.8 fl (7.4-10.4); Monocytes # 0.4 K/mm3 (0.1-1.0); Monocytes % 11.2 % (1.7-9.3); Neutrophils # 2.2 K/mm3 (1.8-7.8); Neutrophils % 59.1 % (37.0-80.0); Platelet Count 238 K/mm3 (142-424); Red Cell Distribution Width 14.1 % (11.5-17.5); White Blood Count 3.7 K/mm3 (4.8-10.8)
[2023-08-10 18:37] LABS: Chloride 100 mmol/L (98-107); Sodium 132 mmol/L (136-145)
[2023-08-10 18:38] LABS: Potassium 3.4 mmoL/L (3.5-5.1)
[2023-08-10 18:40] LABS: Alanine Aminotransferase 24 U/L (12-78); Albumin Level 3.9 g/dl (3.5-5.0); Albumin/Globulin Ratio 1.7 (1.1-1.8); Alkaline Phosphatase 78 U/L (38-126); Anion Gap 8.4 mEq/L (5-15); Aspartate Amino Transferase 30 U/L (14-36); Bilirubin,Total 0.4 mg/dl (0.2-1.3); Blood Urea Nitrogen 20 mg/dl (7-17); Carbon Dioxide 27 mmol/L (22.0-30.0); Creatinine Clearance Estimated 59 mL/min (50-200); Estimated Glomerular Filt Rate 83 ml/min (>60); GFR (African American) 100 ML/MIN (>60); Globulin 2.3 g/dL (1.3-3.2); Total Protein,Serum 6.2 g/dl (6.3-8.2)
[2023-08-10 18:41] LABS: Calcium 8.8 mg/dl (8.4-10.2); Glucose 131 mg/dl (74-100); INR 0.95 (0.9-1.1); Prothrombin Time 10.3 seconds (10.1-12.5)
[2023-08-10 18:56] LABS: Troponin I < 0.01 ng/ml (0.00-0.034)
--- NOTE | 2023-08-10 19:16 | PC.NURSE ---
I notified radiology that scans were put in on the pt.
[2023-08-10] MEDS: 0.9 % SODIUM CHLORIDE 50 ML VIAL IV (19:41)
[2023-08-10] MEDS: IOPAMIDOL-370 (76%);100ML BOTTLE 100 ML IV (19:41)
[2023-08-10] MEDS: SODIUM CHLORIDE 0.9% 10ML SYR (RAD ONLY) 10 ML IV (19:41)
[2023-08-10 21:08] LABS: Lipase 61 U/L (23-300)
[2023-08-10 21:23] LABS: Lactic Acid 0.9 mmol/L (0.7-2.1)
[2023-08-10] MEDS: OXYCODONE 5MG IMMEDIATE RELEASE TABLET 5 MG PO (21:48)
== END 2023-08-10 22:01 | disposition home or self-care (01) ==
PROVIDERS: Emergency Provider Emergency Medicine; PCP Internal Medicine
DX: E87.1 Hypo-osmolality and hyponatremia (principal); E87.6 Hypokalemia; R10.13 Epigastric pain; K92.1 Melena; M54.6 Pain in thoracic spine; R19.7 Diarrhea, unspecified; I10 Essential (primary) hypertension
CPT/HCPCS: 71045; 71275; 74174; 80053; 83605; 83690; 84484; 85025; 85610; 93005; 96374; 96375; 99285; J2405; Q9967

== ENCOUNTER 2023-08-13 16:22 | Outpatient (CLI) | payer MEDICARE, MEDICAID, SELFPAY ==
[2023-08-13 16:59] LABS: D-Dimer 0.69 ug/mL (0.0-0.5)
[2023-08-13 17:30] LABS: Chloride 96 mmol/L (98-107); Potassium 3.7 mmoL/L (3.5-5.1); Sodium 132 mmol/L (136-145)
[2023-08-13 17:32] LABS: Bilirubin,Unconjugated 0.1 mg/dL (0.0-1.1); Blood Urea Nitrogen 8 mg/dl (7-17); Estimated Glomerular Filt Rate 99 ml/min (>60); GFR (African American) 120 ML/MIN (>60)
[2023-08-13 17:33] LABS: Alanine Aminotransferase 21 U/L (12-78); Albumin Level 4.2 g/dl (3.5-5.0); Alkaline Phosphatase 75 U/L (38-126); Anion Gap 9.7 mEq/L (5-15); Aspartate Amino Transferase 32 U/L (14-36); Bilirubin,Direct 0.3 mg/dl (0.0-0.4); Bilirubin,Total 0.3 mg/dl (0.2-1.3); Calcium 9.3 mg/dl (8.4-10.2); Carbon Dioxide 30 mmol/L (22.0-30.0); Cholesterol 152 mg/dl (140-200); Glucose 131 mg/dl (74-100); Total Protein,Serum 6.5 g/dl (6.3-8.2); Triglycerides 29 mg/dl (30-150); VLDL Cholesterol 6 mg/dL (0-40)
[2023-08-13 17:41] LABS: Chol/HDL Ratio 1.3 (1-3.5); HDL Cholesterol 120 mg/dl (40-60)
[2023-08-13 17:44] LABS: Direct LDL Cholesterol 41.06 mg/dL (100-129)
[2023-08-13 17:50] LABS: Triiodothryronine (T3) Uptake 30 % (23.5-40.5)
[2023-08-13 17:51] LABS: Free Thyroxine Index 3.2 ug/dL (5.93-13.13); T4 (Thyroxine) 10.7 ug/dl (5.53-11.0)
[2023-08-13 18:04] LABS: Thyroid Stimulating Hormone 0.05 uIU/mL (0.465-4.68)
[2023-08-20 10:14] LABS: Dopamine, Plasma < 30 pg/mL (0-48); Epinephrine, Plasma 19 pg/mL (0-62); Norepinephrine, Plasma 357 pg/mL (0-874)
[2023-08-20 23:36] LABS: Normetanephrine Plasma 78.9 pg/mL (0.0-285.2)
== END 2023-08-13 23:59 | disposition home or self-care (01) ==
PROVIDERS: Internal Medicine; PCP Internal Medicine; Visit Provider Family Medicine
DX: R06.09 Other forms of dyspnea (principal); Z95.828 Presence of other vascular implants and grafts; R07.89 Other chest pain; I50.20 Unspecified systolic (congestive) heart failure; I25.118 Atherosclerotic heart disease of native coronary artery with other forms of angina pectoris; I10 Essential (primary) hypertension; R60.9 Edema, unspecified; R42 Dizziness and giddiness; N39.0 Urinary tract infection, site not specified
CPT/HCPCS: 36415; 80048; 80061; 80076; 82088; 82384; 83835; 84244; 84436; 84443; 84479; 85378; 87086; 93270

== ENCOUNTER 2023-08-13 18:00 | Outpatient (CLI) | payer MEDICARE, MEDICAID, SELFPAY | END 2023-08-13 23:59 | disposition home or self-care (01) | LOC: LAB.DROPOF 08-14 14:22 | PROVIDERS: PCP Family Medicine; Visit Provider Family Medicine | DX: R06.09 Other forms of dyspnea (principal); R42 Dizziness and giddiness ==

== ENCOUNTER 2023-08-19 11:12 | Outpatient (CLI) | payer MEDICARE, MEDICAID, SELFPAY ==
--- NOTE | 2023-08-19 11:22 | CT_ITS ---
FINAL REPORT CLINICAL HISTORY: elevated d dimer COMPARISON: 08/10/2023 FINDINGS: Thin section axial CT images of the chest were obtained with contrast. 3D reformatted images were also obtained. This study was performed with techniques to keep radiation doses as low as reasonably achievable (ALARA). Individualized dose reduction techniques using automated exposure control or adjustment of mA and/or kV according to the patient's size were employed. There is no evidence of pulmonary embolism. There is a thoracic aortic stent graft. There is no evidence of thoracic aortic aneurysm or dissection. There is no evidence of mediastinal or hilar mass or adenopathy. Note is made of mild emphysema. There is a 21 mm nodule adjacent to the left heart border. Limited images of the upper abdomen reveal cholecystectomy. IMPRESSION: No evidence of pulmonary embolism. Nodule adjacent to the left heart border. Recommend PET-CT. Findings were reported to Maci Brito, nurse practitioner on 08/19/2023 at 1:40 p.m. Reviewed, Interpreted and Dictated by Raf Horner III, MD Transcribed by Pilar Onofre Authenticated and [facility]
[2023-08-19] MEDS: IOPAMIDOL-370 (76%);100ML BOTTLE 70 ML IV (11:58)
[2023-08-19] MEDS: 0.9 % SODIUM CHLORIDE 50 ML VIAL IV (11:58)
[2023-08-19] MEDS: SODIUM CHLORIDE 0.9% 10ML SYR (RAD ONLY) 10 ML IV (11:58)
== END 2023-08-19 23:59 | disposition home or self-care (01) ==
LOC: RAD 11:16
PROVIDERS: PCP Internal Medicine; Visit Provider Nurse Practitioner Family
DX: R79.89 Other specified abnormal findings of blood chemistry (principal); I51.89 Other ill-defined heart diseases
CPT/HCPCS: 71275; Q9967

== ENCOUNTER 2023-08-26 07:50 | Outpatient (CLI) | payer MEDICARE, MEDICAID, SELFPAY ==
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
--- NOTE | 2023-08-26 08:21 | US_ITS ---
FINAL REPORT CLINICAL HISTORY: . htn COMPARISON: None FINDINGS: RENAL ULTRASOUND: The right kidney measures 9.8 cm in sagittal length. No evidence of focal mass or hydronephrosis is identified. The left kidney measures 9.1 cm in sagittal length. No evidence of focal mass or hydronephrosis is identified. IMPRESSION: Unremarkable renal ultrasound. Reviewed, Interpreted and Dictated by Raf Horner III, MD Transcribed by Larissa Khan Authenticated and [facility]
== END 2023-08-26 23:59 | disposition home or self-care (01) ==
LOC: RT 07:50
PROVIDERS: PCP Internal Medicine; Visit Provider Internal Medicine
DX: I10 Essential (primary) hypertension (principal); N39.0 Urinary tract infection, site not specified
CPT/HCPCS: 76770; 93976

== ENCOUNTER 2023-09-27 21:41 | Emergency (ER) | payer MEDICARE, MEDICAID, SELFPAY ==
[2023-09-27 21:42] VITALS: BP 155/79; PULSE 75; RESP 16; TEMP 36.5; O2SAT 96; BMI 28.1
--- NOTE | 2023-09-27 22:28 | PC.NURSE ---
CALLED HOUSE AFTER REGISTRATION STATED SHE WANTS TO TALK TO A NURSE . REQUESTED HER ASSISTANCE ALL NURSING STAFF IS CURRENTLY WITH PATIENTS.
--- NOTE | 2023-09-27 22:43 | ED_ITS ---
Discharge Plan Disposition Chief Complaint: Extremity Injury, Lower Prescriptions Prescriptions: No Action gabapentin 300 mg capsule PO atorvastatin 40 mg tablet PO venlafaxine 75 mg capsule,extended release 24hr PO mirabegron [Myrbetriq] 25 mg tablet extended release 24 hr 25 mg PO DAILY Qty: 30 2RF Dupixent Syringe 300 mg/2 mL syringe 300 mg SQ WEEKLY Qty: 4 3RF levothyroxine [Synthroid] 112 mcg tablet 112 mcg PO DAILY Qty: 90 0RF valsartan-hydrochlorothiazide 320-12.5 mg tablet 1 tab PO DAILY Qty: 30 5RF diphenoxylate-atropine 2.5-0.025 mg tablet 1 tab PO Q6H PRN (Reason: IBS) Qty: 30 0RF nitroglycerin 0.3 mg tablet, sublingual 0.3 mg sublingual Q5M PRN (Reason: chest pain) Qty: 20 0RF Rx Instructions: do not exceed 3 doses per episode aspirin 81 mg Tablet,Chewable 81 mg PO DAILY oxycodone 5 mg tablet 5 mg PO Q8H PRN (Reason: pain) Qty: 12 0RF ondansetron 4 mg tablet,disintegrating 4 mg PO Q8H PRN (Reason: nausea and vomiting) 4 Days Qty: 12 0RF methocarbamol 500 mg tablet 500 mg PO TID PRN (Reason: pain) 5 Days Qty: 20 0RF lidocaine 5 % adhesive patch,medicated 1 patch topical Q24H 5 Days Qty: 15 0RF Rx Instructions: leave on most painful area for up to 12 hrs Referrals Follow up/Referrals: Kana Escobar DO [Primary Care Provider] - See instructions Activity Restrictions/Add. Instructions Additional Instructions/Restrictions: Please follow-up with your primary care provider. Please return to the emergency department if you develop any new or worsening symptoms or become concerned for your health. Clinical Impressions Clinical Impression: Acute ankle pain Discharge ED Provider: Jonnathan Vick General Adult HPI <HELEN Maria - Last Filed: 09/27/23 23:07> General Chief complaint: Extremity Injury, Lower Stated complaint: r ankle pain ao stepped on step twisted Time Seen by Provider: 09/27/23 22:43 History of Present Illness HPI narrative: Patient reports that she was walking out of her house and stepped with her right foot everting her right ankle. Patient reports difficulty in bearing weight then and now. She denies any numbness tingling. Related Data Home Medications Medication Instructions Recorded Confirmed aspirin 81 mg chewable tablet 81 mg PO DAILY 07/14/23 08/27/23 atorvastatin 40 mg tablet mg PO 08/13/23 08/27/23 gabapentin 300 mg capsule mg PO 08/13/23 08/27/23 venlafaxine 75 mg capsule,extended mg PO 08/13/23 08/27/23 release 24 hr Previous Rx's Medication Instructions Recorded ondansetron 4 mg disintegrating 4 mg PO Q8H PRN nausea and 07/14/23 tablet vomiting 4 days #12 tabs oxycodone 5 mg tablet 5 mg PO Q8H PRN pain #12 tabs 07/14/23 lidocaine 5 % topical patch 1 patch topical Q24H 5 days #15 ea 08/10/23 methocarbamol 500 mg tablet 500 mg PO TID PRN pain 5 days #20 08/10/23 tabs dupilumab 300 mg/2 mL subcutaneous 300 mg (2 mL) SQ WEEKLY #4 mL 08/28/23 syringe (Dupixent) mirabegron 25 mg tablet,extended 25 mg PO DAILY #30 tabs 08/28/23 release 24 hr (Myrbetriq) diphenoxylate-atropine 2.5 1 tab PO Q6H PRN IBS #30 tabs 09/15/23 mg-0.025 mg tablet levothyroxine 112 mcg tablet 112 mcg PO DAILY #90 tabs 09/15/23 (Synthroid) valsartan 320 1 tab PO DAILY #30 tabs 09/15/23 mg-hydrochlorothiazide 12.5 mg tablet nitroglycerin 0.3 mg sublingual 0.3 mg sublingual Q5M PRN chest 09/18/23 tablet pain #20 tabs Allergies Allergy/AdvReac Type Severity Reaction Status Date / Time Penicillins Allergy Intermediate Verified 08/27/23 15:10 Sulfa (Sulfonamide Allergy Intermediate Verified 08/27/23 15:10 Antibiotics) lisinopril Allergy Mild Cough Verified 08/27/23 15:10 [facility] <HELEN Maria - Last Filed: 09/27/23 23:07> [facility] Disclaimer: The information contained in this section may have been updated after the patient was seen, as this information can be updated by other users. Medical History Hypertension Aortic dissection Social History Smoking Status: Never smoker alcohol intake: never current occupational status: retired Travel in the last 8 weeks: None <HELEN Maria - Last Filed: 09/27/23 23:07> ROS Obtained: Yes Systems reviewed as appropriate & no additional complaints except as documented Physical Exam <HELEN Maria - Last Filed: 09/27/23 23:07> General General appearance: alert and in no apparent distress Respiratory Respiratory exam: Present normal lung sounds bilaterally Cardiovascular Cardiovascular exam: Present regular rate and normal rhythm Neurological Exam Neurological exam: Present alert and oriented X3 Other Other exam information: Patient has swelling and ecchymosis to the lateral aspect of her right ankle with no obvious bony deformity. She is neurovascular intact distally. Medical Decision Making <HELEN Maria - Last Filed: 09/27/23 23:07> [place] Inquiry Pt receiving controlled substance: No Vital Signs: 09/27/23 21:42 09/27/23 23:00 09/27/23 23:30 Temperature 97.7 F Temperature Source Oral Pulse Rate 66 66 Pulse Rate [Right] 75 Respiratory Rate 16 20 18 Blood Pressure 131/75 152/64 H Blood Pressure [Right Arm] 155/79 H Blood Pressure Mean [Right Arm] 104 Blood Pressure Source [Right Arm] Automatic Cuff Blood Pressure Position [Right Arm] Sitting 02 Sat by Pulse Oximetry 96 96 95 Oxygen Delivery Method Room Air Room Air Room Air Orders (Tests/Meds): ED MEDICATIONS Discontinued Medications Generic Name Dose Route Start Last Admin Trade Name Freq PRN Reason Stop Dose Admin Acetaminophen 1,000 mg 09/27/23 23:07 09/27/23 23:17 Acetaminophen 500mg Tab PO 09/27/23 23:08 1,000 mg ONCE ONE Administration Oxycodone HCl 5 mg 09/27/23 23:07 09/27/23 23:18 Oxycodone 5mg Immediate Release Tablet PO 09/27/23 23:08 5 mg ONCE ONE Administration ORDERS Category Date Time Status Ankle XR -Right minimum 3 Views [XR ankle RT min 3V] Exams 09/27/23 22:54 Completed Stat Foot XR right 2 views [XR foot RT 2V] Stat Exams 09/27/23 22:54 Completed Tibia/fibula XR right 2 views [XR tibia fibula RT 2V] Exams 09/27/23 22:54 Completed Stat Medical Decision Narrative: In summary patient is a 68-year-old female who presents to the emergency department for evaluation of right ankle injury. Patient is hemodynamically stable upon arrival, afebrile. Physical exam is remarkable for ecchymosis and tenderness to palpation of the right ankle with no evidence of bony deformity on palpation neurovascular tact distally. Differential diagnosis includes sprain versus ankle. Initial workup will be conducted with plain film x-ray. Initial interventions include Toradol and Tylenol. Initial workup is pending at the time of handoff to Dr. Vick at 2300 hrs. <Jonnathan Vick MD - Last Filed: 09/28/23 00:46> Vital Signs: 09/27/23 21:42 09/27/23 23:00 09/27/23 23:30 Temperature 97.7 F Temperature Source Oral Pulse Rate 66 66 Pulse Rate [Right] 75 Respiratory Rate 16 20 18 Blood Pressure 131/75 152/64 H Blood Pressure [Right Arm] 155/79 H Blood Pressure Mean [Right Arm] 104 Blood Pressure Source [Right Arm] Automatic Cuff Blood Pressure Position [Right Arm] Sitting 02 Sat by Pulse Oximetry 96 96 95 Oxygen Delivery Method Room Air Room Air Room Air Orders (Tests/Meds): ED MEDICATIONS Discontinued Medications Generic Name Dose Route Start Last Admin Trade Name Danyq PRN Reason Stop Dose Admin Acetaminophen 1,000 mg 09/27/23 23:07 09/27/23 23:17 Acetaminophen 500mg Tab PO 09/27/23 23:08 1,000 mg ONCE ONE Administration Oxycodone HCl 5 mg 09/27/23 23:07 09/27/23 23:18 Oxycodone 5mg Immediate Release Tablet PO 09/27/23 23:08 5 mg ONCE ONE Administration ORDERS Category Date Time Status Ankle XR -Right minimum 3 Views [XR ankle RT min 3V] Exams 09/27/23 22:54 Completed Stat Foot XR right 2 views [XR foot RT 2V] Stat Exams 09/27/23 22:54 Completed Tibia/fibula XR right 2 views [XR tibia fibula RT 2V] Exams 09/27/23 22:54 Completed Stat Medical Decision Narrative: In summary patient is a 68-year-old female who presents to the emergency department for evaluation of right ankle injury. Patient is hemodynamically stable upon arrival, afebrile. Physical exam is remarkable for ecchymosis and tenderness to palpation of the right ankle with no evidence of bony deformity on palpation neurovascular tact distally. Differential diagnosis includes sprain versus ankle. Initial workup will be conducted with plain film x-ray. Initial interventions include Toradol and Tylenol. Initial workup is pending at the time of handoff to Dr. Vick at 2300 hrs. Nava KATE: I assumed care of the patient at the time of handoff from the prior provider. On reassessment patient chano stable. Radiographs independently interpreted by me and show no evidence of acute fracture or dislocation. These findings were communicated to patient and she was discharged in stable condition with instructions regarding symptomatic care. I was consulted by the BRENDA, and we discussed the complexity of the problems being addressed. I approved the treatment and management plan for this patient?s care in the Emergency Department, thus performing a substantive portion of the medical decision making. Jonnathan Vick MD Critical Care <HELEN Maria - Last Filed: 09/27/23 23:07> Critical Care Time Critical Care Time: No
--- NOTE | 2023-09-27 22:54 | XR_ITS ---
PROCEDURE INFORMATION: Exam: XR Right Tibia and Fibula Exam date and time: 09/27/2023 10:54 PM Age: 68 years old Clinical indication: Injury or trauma; Fall; Sprain or strain; Ankle and foot; Right TECHNIQUE: Imaging protocol: Radiologic exam of the right tibia and fibula. Views: 2 views. COMPARISON: CR XR ANKLE RT MIN 3V 09/27/2023 10:54 PM FINDINGS: Bones/joints: Normal. Soft tissues: Normal. IMPRESSION: No acute findings.
--- NOTE | 2023-09-27 22:54 | XR_ITS ---
PROCEDURE INFORMATION: Exam: XR Right Foot Exam date and time: 09/27/2023 10:54 PM Age: 68 years old Clinical indication: Injury or trauma; Fall; Sprain or strain; Ankle and foot; Right TECHNIQUE: Imaging protocol: Radiologic exam of the right foot. Views: 1 or 2 views. COMPARISON: CR XR ANKLE RT MIN 3V 09/27/2023 10:54 PM FINDINGS: Bones/joints: The osseous structures appear intact with no evidence of acute fracture, dislocation, or malalignment. Joint spaces are preserved. No abnormal bone density or destructive lesions are noted. Soft tissues: Soft tissues appear unremarkable. IMPRESSION: At the time of imaging, there is no evidence for acute osseous abnormalities.
--- NOTE | 2023-09-27 22:54 | XR_ITS ---
PROCEDURE INFORMATION: Exam: XR Right Ankle Exam date and time: 09/27/2023 10:54 PM Age: 68 years old Clinical indication: Injury or trauma; Fall; Sprain or strain; Ankle and foot; Right TECHNIQUE: Imaging protocol: Radiologic exam of the right ankle. Views: 3 or more views. COMPARISON: CR XR FOOT RT 2V 09/27/2023 10:54 PM FINDINGS: Bones/joints: The osseous structures appear intact with no evidence of acute fracture, dislocation, or malalignment. Joint spaces are preserved. No abnormal bone density or destructive lesions are noted. Soft tissues: Soft tissues appear unremarkable. IMPRESSION: At the time of imaging, there is no evidence for acute osseous abnormalities.
[2023-09-27 23:00] VITALS: BP 131/75; PULSE 66; RESP 20; O2SAT 96
--- NOTE | 2023-09-27 23:10 | PC.NURSE ---
patient assisted to bathroom
[2023-09-27] MEDS: ACETAMINOPHEN 500MG TAB 1000 MG PO (23:17)
[2023-09-27] MEDS: OXYCODONE 5MG IMMEDIATE RELEASE TABLET 5 MG PO (23:18)
[2023-09-27 23:30] VITALS: BP 152/64; PULSE 66; RESP 18; O2SAT 95
[2023-09-28] MEDS: KETOROLAC 30MG/ML VIAL 15 MG IM (00:58)
[2023-09-28 01:12] VITALS: BP 144/67; PULSE 66; RESP 17; TEMP 36.7; O2SAT 94
== END 2023-09-28 01:12 | disposition home or self-care (01) ==
PROVIDERS: Emergency Provider Emergency Medicine; PCP Internal Medicine
DX: M25.571 Pain in right ankle and joints of right foot (principal); X50.1XXA Overexertion from prolonged static or awkward postures, initial encounter
CPT/HCPCS: 73590; 73610; 73620; 96372; 96374; 99284; J1885

== ENCOUNTER 2023-10-07 10:32 | Outpatient (CLI) | payer MEDICARE, MEDICAID, SELFPAY | END 2023-10-07 23:59 | disposition home or self-care (01) | LOC: LAB.DROPOF 10-08 10:32 | PROVIDERS: PCP Family Medicine; Visit Provider Family Medicine | DX: N39.0 Urinary tract infection, site not specified (principal); B96.1 Klebsiella pneumoniae [K. pneumoniae] as the cause of diseases classified elsewhere | CPT/HCPCS: 87086; 87088; 87186 ==

== ENCOUNTER 2023-10-18 11:53 | Emergency (ER) | payer MEDICARE, SELFPAY ==
--- NOTE | 2023-10-18 11:55 | ED_ITS ---
Discharge Plan Disposition Patient Disposition: Home, Self-Care Prescriptions Prescriptions: New oxycodone 5 mg tablet 5 mg PO Q8H PRN (Reason: pain (scale score 7-10)) Qty: 9 0RF Rx Instructions: Please take only after Tylenol and ibuprofen have not worked promethazine 25 mg tablet 25 mg PO TID PRN (Reason: nausea and vomiting) Qty: 12 0RF No Action nitroglycerin 0.3 mg tablet, sublingual 0.3 mg sublingual Q5M PRN (Reason: chest pain) Qty: 20 0RF Rx Instructions: do not exceed 3 doses per episode diphenoxylate-atropine 2.5-0.025 mg tablet 1 tab PO Q6H PRN (Reason: IBS) Qty: 30 0RF ciprofloxacin HCl 250 mg tablet 250 mg PO BID 5 Days Qty: 10 0RF Vraylar 1.5 mg capsule 1.5 mg PO DAILY Qty: 30 2RF gabapentin 300 mg capsule 300 mg PO BID Qty: 60 2RF atorvastatin 40 mg tablet PO venlafaxine 75 mg capsule,extended release 24hr PO mirabegron [Myrbetriq] 25 mg tablet extended release 24 hr 25 mg PO DAILY Qty: 30 2RF Dupixent Syringe 300 mg/2 mL syringe 300 mg SQ WEEKLY Qty: 4 3RF levothyroxine [Synthroid] 112 mcg tablet 112 mcg PO DAILY Qty: 90 0RF valsartan-hydrochlorothiazide 320-12.5 mg tablet 1 tab PO DAILY Qty: 30 5RF aspirin 81 mg Tablet,Chewable 81 mg PO DAILY ondansetron 4 mg tablet,disintegrating 4 mg PO Q8H PRN (Reason: nausea and vomiting) 4 Days Qty: 12 0RF methocarbamol 500 mg tablet 500 mg PO TID PRN (Reason: pain) 5 Days Qty: 20 0RF lidocaine 5 % adhesive patch,medicated 1 patch topical Q24H 5 Days Qty: 15 0RF Rx Instructions: leave on most painful area for up to 12 hrs Referrals Follow up/Referrals: Alicia Muñiz APRN [Primary Care Provider] - See instructions Activity Restrictions/Add. Instructions Additional Instructions/Restrictions: At this time it was felt you are safe to be discharged home. If new or worsening symptoms please do not hesitate to return the emergency department. On your CT scan today it looks like there is a 3 mm kidney stone although it may be a piece of metal from a previous operation or a benign calcification and it is difficult to tell exactly if it is a kidney stone or not. However with your pain I would treat it as a kidney stone and given that it is 3 mm and will pass on its own. Please take Tylenol 1000 mg and ibuprofen 600 mg every 6 hours. Please follow-up with your family doctor in 10 to 15 days if symptoms persist. Clinical Impressions Clinical Impression: Ureterolithiasis, Diarrhea, Vomiting Discharge ED Provider: Osorio Ndiaye General Adult HPI <Osorio Ndiaye MD - Last Filed: 10/18/23 15:20> General Chief complaint: Weakness Stated complaint: abd pain vomiting fever Time Seen by Provider: 10/18/23 11:55 History of Present Illness HPI narrative: The patient presents with a chief complaint of constant bowel problems, which started yesterday afternoon but have been causing pain for approximately one week. The pain has recently worsened. The patient reports having a PET scan last month that showed inflammation in the colon and heart, and is scheduled for an upcoming stress test. She experiences constant cramping and diarrhea. She reported chest pain yesterday, which required two nitroglycerin tablets. The pain was described as sharp and lasted about 32 seconds. There is also a report of constant abdominal pain, which has been present for about a week and a half. She experiences difficulty finding a comfortable position and has been experiencing leg pain during sleep. The patient has a history of kidney stones on the right side and is currently experiencing diarrhea, bloating, and difficulty eating hearty meals due to a sensation of fullness. No blood in the stool has been observed recently, and she reports increased emotional sensitivity. She is on new medication. The pain is localized in the stomach and has not changed location. She experiences pain during urination and in the back on the right side. There is pain reported in the lower abdomen and lower back, which does not appear to spread to other areas. Please note that above description of symptoms, in this electronic medical record under categorization of recalled from ER triage doctor by RN are reflective of an initial nursing assessment, however, is not reflective of my full history and physical exam that was personally taken and clarified. Consequentially, this preceding description of symptoms, which may include the patient's categorized chief complaint in the EMR, do not reflect my personal clinical impression, and the ultimate description of history of present illness and patient stated complaints should be deferred to this section of the note. Unless stated otherwise or congruent with this section of the note, additional signs, symptoms, or incongruence should be interpreted as inaccurate with my clinical impression. Related Data Home Medications Medication Instructions Recorded Confirmed aspirin 81 mg chewable tablet 81 mg PO DAILY 07/14/23 10/07/23 atorvastatin 40 mg tablet mg PO 08/13/23 10/07/23 venlafaxine 75 mg capsule,extended mg PO 08/13/23 10/07/23 release 24 hr Previous Rx's Medication Instructions Recorded ondansetron 4 mg disintegrating 4 mg PO Q8H PRN nausea and 07/14/23 tablet vomiting 4 days #12 tabs lidocaine 5 % topical patch 1 patch topical Q24H 5 days #15 ea 08/10/23 methocarbamol 500 mg tablet 500 mg PO TID PRN pain 5 days #20 08/10/23 tabs dupilumab 300 mg/2 mL subcutaneous 300 mg (2 mL) SQ WEEKLY #4 mL 08/28/23 syringe (Dupixent) mirabegron 25 mg tablet,extended 25 mg PO DAILY #30 tabs 08/28/23 release 24 hr (Myrbetriq) levothyroxine 112 mcg tablet 112 mcg PO DAILY #90 tabs 09/15/23 (Synthroid) valsartan 320 1 tab PO DAILY #30 tabs 09/15/23 mg-hydrochlorothiazide 12.5 mg tablet cariprazine 1.5 mg capsule 1.5 mg PO DAILY mdd #30 caps 10/07/23 (Vraylar) ciprofloxacin HCl 250 mg tablet 250 mg PO BID 5 days #10 tabs 10/07/23 diphenoxylate-atropine 2.5 1 tab PO Q6H PRN IBS #30 tabs 10/07/23 mg-0.025 mg tablet nitroglycerin 0.3 mg sublingual 0.3 mg sublingual Q5M PRN chest 10/07/23 tablet pain #20 tabs gabapentin 300 mg capsule 300 mg PO BID #60 caps 10/08/23 oxycodone 5 mg tablet 5 mg PO Q8H PRN pain (scale score 10/18/23 7-10) #9 tabs promethazine 25 mg tablet 25 mg PO TID PRN nausea and 10/18/23 vomiting #12 tabs Allergies Allergy/AdvReac Type Severity Reaction Status Date / Time Penicillins Allergy Intermediate Verified 10/07/23 11:16 Sulfa (Sulfonamide Allergy Intermediate Verified 10/07/23 11:16 Antibiotics) lisinopril Allergy Mild Cough Verified 10/07/23 11:16 PFSH <Osorio Ndiaye MD - Last Filed: 10/18/23 15:20> [facility] Disclaimer: The information contained in this section may have been updated after the patient was seen, as this information can be updated by other users. Medical History Hypertension Aortic dissection Social History Smoking Status: Former smoker alcohol intake: never current occupational status: retired Travel in the last 8 weeks: None <Osorio Ndiaye MD - Last Filed: 10/18/23 15:20> ROS Obtained: Yes other As per HPI Physical Exam <Osorio Ndiaye MD - Last Filed: 10/18/23 15:20> General General appearance: alert and in no apparent distress Head Head exam: atraumatic and normocephalic Eye Eye exam: Present normal appearance Neck Neck exam: Present normal inspection Chest Chest inspection: Present normal inspection and symmetric chest wall rise Respiratory Respiratory exam: Present normal lung sounds bilaterally; Absent respiratory distress Cardiovascular Cardiovascular exam: Present regular rate and normal rhythm Abdominal Exam Abdominal exam: Present soft Neurological Exam Neurological exam: Present alert and oriented X3 Psychiatric Psychiatric exam: Present normal affect and normal mood Skin Skin exam: Present warm and dry Other Other exam information: Right flank tenderness to palpation, diffuse abdominal tenderness to palpation, voluntary guarding, no rebound tenderness, no rigidity. Dry mucous membranes. No midline spinal tenderness to palpation Medical Decision Making <Osorio Ndiaye MD - Last Filed: 10/18/23 15:20> Medical Records Medical records reviewed: Yes I reviewed the patient's medical records. [place] Inquiry Pt receiving controlled substance: No Vital Signs: 10/18/23 12:02 10/18/23 12:49 10/18/23 12:53 Temperature 98.2 F Temperature Source Oral Pulse Rate 76 72 Pulse Rate [Left Radial] 90 Respiratory Rate 20 Blood Pressure 128/69 131/79 Blood Pressure [Right Arm] 149/74 H Blood Pressure Mean [Right Arm] 99 02 Sat by Pulse Oximetry 99 97 98 Oxygen Delivery Method Room Air 10/18/23 13:30 10/18/23 15:22 Temperature Temperature Source Pulse Rate 77 69 Pulse Rate [Left Radial] Respiratory Rate Blood Pressure Blood Pressure [Right Arm] Blood Pressure Mean [Right Arm] 02 Sat by Pulse Oximetry 95 100 Oxygen Delivery Method Lab Data Lab Results 10/18/23 12:35: WBC 3.8 L, RBC 4.03 L, Hgb 12.4, Hct 39.0, MCV 96.9, MCH 30.8, M CHC 31.7 L, RDW 14.1, Plt Count 296, MPV 8.3, Neut % (Auto) 69.8, Lymph % (Auto) 18.3, [place] % (Auto) 10.6 H, Eos % (Auto) 0.5, Baso % (Auto) 0.7, Neut # (Auto) 2.6, Lymph # (Auto) 0.7, [place] # (Auto) 0.4, Eos # (Auto) 0.0, Baso # (Auto) 0.0, Sodium 133 L, Potassium 4.0, Chloride 98, Carbon Dioxide 29, Anion Gap 10.0, BUN 10, Creatinine 0.80, Estimated Creat Clear 58, Estimated GFR 71, Est GFR ( Amer) 86, Glucose 120 H, Calcium 9.0, Magnesium 1.9, Total Bilirubin 0.4, AST 32, ALT 25, Alkaline Phosphatase 110, Total Protein 7.1, Albumin 4.3, Globulin 2.8, Albumin/Globulin Ratio 1.5, Lipase 412 H, Blood Type A Positive, Antibody Screen Negative 10/18/23 15:13: Urine Color Yellow, Urine Appearance Clear, Urine pH 6.5, Ur Specific [place] <= 1.005, Urine Protein Negative, Urine Glucose (UA) Negative, Urine Ketones Negative, Urine Blood Negative, Urine Nitrate Negative, Urine Bilirubin Negative, Urine Urobilinogen 0.2, Ur Leukocyte Esterase Negative 10/18/23 12:35 10/18/23 12:35 Orders (Tests/Meds): ED MEDICATIONS Generic Name Dose Route Start Last Admin Trade Name Freq PRN Reason Stop Dose Admin Morphine Sulfate 4 mg 10/18/23 15:32 10/18/23 15:33 Morphine 4mg/Ml Syringe IV 10/18/23 15:33 4 mg ONCE ONE Administration Sodium Chloride 10 ml 10/18/23 13:24 10/18/23 13:26 Sodium Chloride 0.9% 10ml Syr (Rad Only) IV 11/17/23 13:23 10 ml NEEDED PRN Administration Maintain IV Site Discontinued Medications Generic Name Dose Route Start Last Admin Trade Name Joan PRN Reason Stop Dose Admin Lactated Ringer's 1,000 mls @ 999 mls/hr 10/18/23 12:02 10/18/23 12:45 Lactated Ringer's 1000 Ml Bag IV 10/18/23 13:02 999 mls/hr .Q1H1M ONE Administration Lactated Ringer's 1,000 mls @ 999 mls/hr 10/18/23 14:47 10/18/23 15:16 Lactated Ringer's 1000 Ml Bag IV 10/18/23 15:47 999 mls/hr .Q1H1M ONE Administration Iopamidol 100 ml 10/18/23 13:24 10/18/23 13:26 Iopamidol-370 (76%);100ml Bottle IV 10/18/23 13:25 100 ml ONCE ONE Administration Morphine Sulfate 4 mg 10/18/23 12:07 10/18/23 12:45 Morphine 4mg/Ml Syringe IV 10/18/23 12:08 4 mg ONCE ONE Administration Ondansetron HCl 4 mg 10/18/23 12:12 10/18/23 12:45 Ondansetron 4mg/2ml Vial IV 10/18/23 12:13 4 mg ONCE ONE Administration Prochlorperazine Edisylate 10 mg 10/18/23 14:47 10/18/23 14:49 Prochlorperazine 10mg/2ml Vial IV 10/18/23 14:48 10 mg ONCE ONE Administration Sodium Chloride 50 ml 10/18/23 13:24 10/18/23 13:26 0.9 % Sodium Chloride 50 Ml Vial IV 10/18/23 13:25 50 ml ONCE ONE Administration ORDERS Category Date Time Status Type and Screen Stat BBK 10/18/23 12:[address] angio abdomen pelvis Stat Cat Scan 10/18/23 12:10 Completed CBC w/Auto Diff [Complete Blood Count Auto Diff] Stat Lab 10/18/23 12:35 Completed CMP [Comprehensive Metabolic Panel] Stat Lab 10/18/23 12:35 Completed Lipase Stat Lab 10/18/23 12:35 Completed MAG [Magnesium] Stat Lab 10/18/23 12:35 Completed Urinalysis and Microscopic Stat Lab 10/18/23 15:13 Results Urine Culture Stat Micro 10/18/23 15:13 Received Medical Decision Narrative: Patient with history and exam per above presenting for evaluation of acute on chronic abdominal pain, right-sided flank pain Diagnoses considered include urolithiasis, cystitis, pyelonephritis, pancreatitis, mesenteric ischemia, bowel obstruction, colitis, diverticulitis, among others ED workup and treatment included: CBC, CMP, mag, type and screen, lipase, urinalysis, urine culture Labs were independently interpreted by me, significant for chronic leukopenia, lipase 412, creatinine within normal limits, urinalysis pending at this time Imaging was independently visualized and interpreted by me, significant for no acute surgical pathology, no evidence of hydronephrosis Please refer to radiology report for full details. Urinalysis pending at this time, care was transferred to incoming physician. <Jefe Man MD - Last Filed: 10/18/23 15:58> Vital Signs: 10/18/23 12:02 10/18/23 12:49 10/18/23 12:53 Temperature 98.2 F Temperature Source Oral Pulse Rate 76 72 Pulse Rate [Left Radial] 90 Respiratory Rate 20 Blood Pressure 128/69 131/79 Blood Pressure [Right Arm] 149/74 H Blood Pressure Mean [Right Arm] 99 02 Sat by Pulse Oximetry 99 97 98 Oxygen Delivery Method Room Air 10/18/23 13:30 10/18/23 15:22 Temperature Temperature Source Pulse Rate 77 69 Pulse Rate [Left Radial] Respiratory Rate Blood Pressure Blood Pressure [Right Arm] Blood Pressure Mean [Right Arm] 02 Sat by Pulse Oximetry 95 100 Oxygen Delivery Method Lab Data Lab Results 10/18/23 12:35: WBC 3.8 L, RBC 4.03 L, Hgb 12.4, Hct 39.0, MCV 96.9, MCH 30.8, M CHC 31.7 L, RDW 14.1, Plt Count 296, MPV 8.3, Neut % (Auto) 69.8, Lymph % (Auto) 18.3, [place] % (Auto) 10.6 H, Eos % (Auto) 0.5, Baso % (Auto) 0.7, Neut # (Auto) 2.6, Lymph # (Auto) 0.7, [place] # (Auto) 0.4, Eos # (Auto) 0.0, Baso # (Auto) 0.0, Sodium 133 L, Potassium 4.0, Chloride 98, Carbon Dioxide 29, Anion Gap 10.0, BUN 10, Creatinine 0.80, Estimated Creat Clear 58, Estimated GFR 71, Est GFR ( Amer) 86, Glucose 120 H, Calcium 9.0, Magnesium 1.9, Total Bilirubin 0.4, AST 32, ALT 25, Alkaline Phosphatase 110, Total Protein 7.1, Albumin 4.3, Globulin 2.8, Albumin/Globulin Ratio 1.5, Lipase 412 H, Blood Type A Positive, Antibody Screen Negative 10/18/23 15:13: Urine Color Yellow, Urine Appearance Clear, Urine pH 6.5, Ur Specific [place] <= 1.005, Urine Protein Negative, Urine Glucose (UA) Negative, Urine Ketones Negative, Urine Blood Negative, Urine Nitrate Negative, Urine Bilirubin Negative, Urine Urobilinogen 0.2, Ur Leukocyte Esterase Negative Orders (Tests/Meds): ED MEDICATIONS Generic Name Dose Route Start Last Admin Trade Name Freq PRN Reason Stop Dose Admin Morphine Sulfate 4 mg 10/18/23 15:32 10/18/23 15:33 Morphine 4mg/Ml Syringe IV 10/18/23 15:33 4 mg ONCE ONE Administration Sodium Chloride 10 ml 10/18/23 13:24 10/18/23 13:26 Sodium Chloride 0.9% 10ml Syr (Rad Only) IV 11/17/23 13:23 10 ml NEEDED PRN Administration Maintain IV Site Discontinued Medications Generic Name Dose Route Start Last Admin Trade Name Freq PRN Reason Stop Dose Admin Lactated Ringer's 1,000 mls @ 999 mls/hr 10/18/23 12:02 10/18/23 12:45 Lactated Ringer's 1000 Ml Bag IV 10/18/23 13:02 999 mls/hr .Q1H1M ONE Administration Lactated Ringer's 1,000 mls @ 999 mls/hr 10/18/23 14:47 10/18/23 15:16 Lactated Ringer's 1000 Ml Bag IV 10/18/23 15:47 999 mls/hr .Q1H1M ONE Administration Iopamidol 100 ml 10/18/23 13:24 10/18/23 13:26 Iopamidol-370 (76%);100ml Bottle IV 10/18/23 13:25 100 ml ONCE ONE Administration Morphine Sulfate 4 mg 10/18/23 12:07 10/18/23 12:45 Morphine 4mg/Ml Syringe IV 10/18/23 12:08 4 mg ONCE ONE Administration Ondansetron HCl 4 mg 10/18/23 12:12 10/18/23 12:45 Ondansetron 4mg/2ml Vial IV 10/18/23 12:13 4 mg ONCE ONE Administration Prochlorperazine Edisylate 10 mg 10/18/23 14:47 10/18/23 14:49 Prochlorperazine 10mg/2ml Vial IV 10/18/23 14:48 10 mg ONCE ONE Administration Sodium Chloride 50 ml 10/18/23 13:24 10/18/23 13:26 0.9 % Sodium Chloride 50 Ml Vial IV 10/18/23 13:25 50 ml ONCE ONE Administration ORDERS Category Date Time Status Type and Screen Stat BBK 10/18/23 12:[address] angio abdomen pelvis Stat Cat Scan 10/18/23 12:10 Completed CBC w/Auto Diff [Complete Blood Count Auto Diff] Stat Lab 10/18/23 12:35 Completed CMP [Comprehensive Metabolic Panel] Stat Lab 10/18/23 12:35 Completed Lipase Stat Lab 10/18/23 12:35 Completed MAG [Magnesium] Stat Lab 10/18/23 12:35 Completed Urinalysis and Microscopic Stat Lab 10/18/23 15:13 Results Urine Culture Stat Micro 10/18/23 15:13 Received Medical Decision Narrative: Patient with history and exam per above presenting for evaluation of acute on chronic abdominal pain, right-sided flank pain Diagnoses considered include urolithiasis, cystitis, pyelonephritis, pancreatitis, mesenteric ischemia, bowel obstruction, colitis, diverticulitis, among others ED workup and treatment included: CBC, CMP, mag, type and screen, lipase, urinalysis, urine culture Labs were independently interpreted by me, significant for chronic leukopenia, lipase 412, creatinine within normal limits, urinalysis pending at this time Imaging was independently visualized and interpreted by me, significant for no acute surgical pathology, no evidence of hydronephrosis Please refer to radiology report for full details. Urinalysis pending at this time, care was transferred to incoming physician. Jefe Man: Upon assumption of care patient is hemodynamically stable. Workup reviewed by me, hematologic labs are nonactionable, no KULWNAT or critical electrolyte abnormality. Patient has mildly elevated lipase but does not meet criteria for pancreatitis. Urinalysis dip negative. CT imaging shows no acute pathology initially however had a discussion with radiologist on-call given that she has right flank pain there is a 3 mm focus of increased density in the right psoas muscle and may be reflective of kidney stone or a piece of metal from a prior operation. Patient was given IV pain control and will be discharged with expectant management as 3 mm focus with a kidney stone will likely pass. Patient had acceptable pain level and is appropriate for outpatient management at this time. Critical Care <Osorio Ndiaye MD - Last Filed: 10/18/23 15:20> Critical Care Time Critical Care Time: No
[2023-10-18 12:02] VITALS: BP 149/74; PULSE 90; RESP 20; TEMP 36.8; O2SAT 99; BMI 26.2
--- NOTE | 2023-10-18 12:10 | CT_ITS ---
PROCEDURE INFORMATION: Exam: CTA Abdomen and Pelvis With Contrast Exam date and time: 10/18/2023 1:23 PM Age: 68 years old Clinical indication: Abdominal pain; Epigastric; Additional info: HX dissection, R flank pain, epigastric pain, diar TECHNIQUE: Imaging protocol: Computed tomographic angiography of the abdomen and pelvis with contrast. Exam focused on the arteries. 3D rendering (Not supervised by radiologist): MIP and/or 3D reconstructed images were created by the technologist. Radiation optimization: All CT scans at this facility use at least one of these dose optimization techniques: automated exposure control; mA and/or kV adjustment per patient size (includes targeted exams where dose is matched to clinical indication); or iterative reconstruction. Contrast material: ISOVUE 370; Contrast volume: 100 ml; Contrast route: INTRAVENOUS (IV); COMPARISON: CT ANGIO ABDOMEN PELVIS 08/10/2023 7:37 PM FINDINGS: Aorta: Scattered regions of atherosclerotic vascular calcification within the abdominal aorta and common iliac arteries. Celiac trunk and mesenteric arteries: No occlusion or significant stenosis. Renal arteries: Accessory left renal artery. Right iliac arteries: No occlusion or significant stenosis. Left iliac arteries: No occlusion or significant stenosis. 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 Liver: No mass. Gallbladder and biliary ducts: Unremarkable. No calcified stones. No ductal dilation. Pancreas: Pancreas unremarkable Spleen: The spleen is unremarkable. Adrenal glands: Hypodense left adrenal nodule again demonstrated. Kidneys and ureters: No hydronephrosis. Stomach and bowel: Findings again suggestive of previous Funmi fundoplication. Clinically correlate. Mild-moderate stool burden. Mild distension of fluid and fecal filled loops of the proximal colon. No evidence of obstruction. Moderate stool burden Appendix: No evidence of appendicitis. Intraperitoneal space: Unremarkable. No free air. No significant fluid collection. Lymph nodes: Unremarkable. No enlarged lymph nodes. Urinary bladder: Unremarkable. No mass. Reproductive: Unremarkable as visualized. Bones/joints: Lumbar spondylosis with multilevel disc degeneration. . Soft tissues: Unremarkable. IMPRESSION: No evidence of acute abnormality.
[2023-10-18] MEDS: ONDANSETRON 4MG/2ML VIAL 4 MG IV (12:45)
[2023-10-18] MEDS: LACTATED RINGERS 1000ML 1,000 ML 999 ML IV ×2 (12:45→15:16)
[2023-10-18] MEDS: MORPHINE 4MG/ML SYRINGE 4 MG IV ×2 (12:45→15:33)
[2023-10-18 12:49] VITALS: BP 128/69; PULSE 76; O2SAT 97
[2023-10-18 12:53] VITALS: BP 131/79; PULSE 72; O2SAT 98
[2023-10-18 12:54] LABS: Basophils % 0.7 % (0.1-2.0); Eosinophils % 0.5 % (0.1-12.0); Hemoglobin 12.4 g/dL (12.2-16.2); Lymphocytes # 0.7 K/mm3 (0.7-4.5); Lymphocytes % 18.3 % (10-50); Mean Corpuscular HGB Conc 31.7 g/dL (31.8-35.4); Mean Corpuscular Hemoglobin 30.8 pg (27.0-31.2); Mean Corpuscular Volume 96.9 fl (81-99); Mean Platelet Volume 8.3 fl (7.4-10.4); Monocytes # 0.4 K/mm3 (0.1-1.0); Monocytes % 10.6 % (1.7-9.3); Neutrophils # 2.6 K/mm3 (1.8-7.8); Neutrophils % 69.8 % (37.0-80.0); Platelet Count 296 K/mm3 (142-424); Red Blood Count 4.03 M/mm3 (4.20-5.40); Red Cell Distribution Width 14.1 % (11.5-17.5); White Blood Count 3.8 K/mm3 (4.8-10.8)
[2023-10-18 13:00] LABS: Chloride 98 mmol/L (98-107); Sodium 133 mmol/L (136-145)
[2023-10-18 13:03] LABS: Alanine Aminotransferase 25 U/L (12-78); Albumin Level 4.3 g/dl (3.5-5.0); Albumin/Globulin Ratio 1.5 (1.1-1.8); Alkaline Phosphatase 110 U/L (38-126); Aspartate Amino Transferase 32 U/L (14-36); Bilirubin,Total 0.4 mg/dl (0.2-1.3); Blood Urea Nitrogen 10 mg/dl (7-17); Carbon Dioxide 29 mmol/L (22.0-30.0); Creatinine Clearance Estimated 58 mL/min (50-200); Estimated Glomerular Filt Rate 71 ml/min (>60); GFR (African American) 86 ML/MIN (>60); Globulin 2.8 g/dL (1.3-3.2); Glucose 120 mg/dl (74-100); Lipase 412 U/L (23-300); Total Protein,Serum 7.1 g/dl (6.3-8.2)
[2023-10-18 13:04] LABS: Magnesium 1.9 mg/dl (1.6-2.3)
[2023-10-18] MEDS: IOPAMIDOL-370 (76%);100ML BOTTLE 100 ML IV (13:26)
[2023-10-18] MEDS: 0.9 % SODIUM CHLORIDE 50 ML VIAL IV (13:26)
[2023-10-18] MEDS: SODIUM CHLORIDE 0.9% 10ML SYR (RAD ONLY) 10 ML IV (13:26)
[2023-10-18 13:30] VITALS: PULSE 77; O2SAT 95
[2023-10-18] MEDS: PROCHLORPERAZINE 10MG/2ML VIAL 10 MG IV (14:49)
[2023-10-18 15:18] LABS: Microscopic, Urine URINE MICROSCOPIC (MICROSCOPIC)
--- NOTE | 2023-10-18 15:18 | PC.NURSE ---
speaking with in [facility] about ct scan
[2023-10-18 15:20] LABS: Appearance,Urine CLEAR (Clear); Bilirubin,Urine Negative (Negative); Blood, Urine Negative (Negative); Glucose,Urine (UA) Negative (Negative); Ketones,Urine Negative (Negative); Leukocyte Esterase,Urine Negative (Negative); Nitrate,Urine Negative (Negative); PH,Urine 6.5 (5.0-8.5); Protein,Urine Negative (Negative); Specific Gravity, Urine <= 1.005 (1.005-1.030); Urobilinogen,Urine 0.2 EU/dl (0.2)
[2023-10-18 15:22] VITALS: PULSE 69; O2SAT 100
[2023-10-18 15:36] LABS: Color,Urine Yellow (Yellow); Squamous Epithelial Cell,Urine Occasional #/hpf (0-5); WBC,Urine Occasional #/hpf (0-3)
[2023-10-18 16:06] VITALS: BP 115/54; PULSE 77; RESP 16; TEMP 36.8; O2SAT 97
--- NOTE | 2023-10-21 07:46 | PC.NURSE ---
urine culture had no growth for final, ntd.
== END 2023-10-18 16:07 | disposition home or self-care (01) ==
PROVIDERS: Emergency Provider Emergency Medicine; PCP Family Medicine
DX: R10.84 Generalized abdominal pain (principal); N20.1 Calculus of ureter; R11.2 Nausea with vomiting, unspecified; R19.7 Diarrhea, unspecified; E87.1 Hypo-osmolality and hyponatremia; I10 Essential (primary) hypertension
CPT/HCPCS: 74174; 80053; 81001; 83690; 83735; 85025; 86850; 87086; 96361; 96374; 96375; 96376; 99285; J2270; J2405; J7120; Q9967

== ENCOUNTER 2023-10-23 10:43 | Outpatient (CLI) | payer MEDICARE, SELFPAY ==
--- NOTE | 2023-10-23 | CA_ITS ---
APPROVED REPORT Exam: Pharmacologic Technologist: Suzan Londono, Ht: 5 ft 2 in Wt: 152 lbs BSA: 1.70 m2 HR: 79 bpm BP: 172/77 mmHg Rhythm: NSR, nonspecific ST abnormalities, PVC Medical History Medications: Aspirin,,,,, Gabapentin,,,,, Synthroid,,,,, Atorvastatin,,,,, ONdansetron,,,,, Valsartan HCTZ,,,,, Mirabegron,,,,, Niroglycerin,,,,, DuPIxent,,,,, Vanlafaxine,,,,, Cardiac Risk Factors: HTN Stress Test Details Test: LEXISCAN Reversal agent Aminophyline 100.0 mg, given intravenously for headache. HR Resting HR: 82 bpm Max Heart Rate (APMHR): 151 bpm Max HR Achieved: 118 bpm Target HR (85% APMHR): 128 bpm % of APMHR: 78 Recovery HR: 79 bpm BP Resting BP: 172.0/77.0 mmHg Max BP: 172.0/77.0 mmHg Recovery BP: 172.0/77.0 mmHg ECG Resting ECG: NSR, nonspecific ST changes, PVC Stress ECG: No significant ST changes Arrhythmia: Frequent PVCs, occasional ventricular couplets Clinical Exercise duration: 04:01 min Highest Stage Achieved: Exercise capacity: 1.0 METs Stress ECG Conclusion During lexiscan pt experinced head discomfort, pain between scapula, mild SOA, leg heaviness, and stomach discomfort. Ectopy: Frequent isiolated PVCs, occasional ventricular couplet. ST changes: [address] depression Conclusion: EKG changes with lexiscan stress suggestive of ischemia . Myoview images reported separately. Aminophylline 100mg slow IV giiven., after which, patient symptoms resolved. Test Summary REST 05:09 . . 82 . 172/ 77 . . Stage 1 01:00 . . 102 . . . . Stage 2 01:00 . . 116 . . . . Stage 3 01:00 . . 112 . 131/ 61 . . Stage 4 01:00 . . 105 . 126/ 63 . . Stage 4 01:01 . . 105 . 126/ 63 . Stop exercise at 04:01 RECOVERY 01:00 . . 98 . 136/ 64 . . RECOVERY 02:00 . . 100 . 136/ 64 . . RECOVERY 03:00 . . 101 . 141/ 66 . . RECOVERY 04:00 . . 97 . 141/ 66 . . RECOVERY 05:00 . . 89 . 141/ 66 . . RECOVERY 06:00 . . 87 . 148/ 70 . . RECOVERY 06:20 . . 86 . 148/ 70 . . Electronically signed by : Geraldine William MD 10/23/2023 21:58:47
--- NOTE | 2023-10-23 10:43 | CA_ITS ---
FINAL REPORT TECHNIQUE: Color Doppler, duplex Doppler and vivas scale sonography of the bilateral neck vasculature was performed. Velocities were measured in the carotid arteries. Stenosis evaluation based on velocity criteria. CLINICAL HISTORY: dizziness, SOB, HTN, CAD, numbness right arm COMPARISON: None FINDINGS: The peak systolic velocity of the right common carotid artery is 82.3 cm/sec and internal carotid artery 130 cm/sec. The diastolic velocity in the internal carotid artery is 41 cm/sec. The ICA/CCA ratio is 1.85. Visually, a small amount of plaque is seen. These findings are consistent with less than 50% stenosis. The external carotid artery is patent. The right vertebral artery is patent with antegrade flow. The peak systolic velocity of the left common carotid artery is 106 cm/sec and internal carotid artery 70 cm/sec. The diastolic velocity in the internal carotid artery is 20 cm/sec. The ICA/CCA ratio is 0.95. Visually, a small amount of plaque is seen. These findings are consistent with less than 50% stenosis. The external carotid artery is patent. The left vertebral artery is patent with antegrade flow. IMPRESSION: No evidence of significant carotid stenosis. Bilateral patent vertebral arteries. If indicated, CTA or MRA could further evaluate. Reviewed, Interpreted and Dictated by Raf Horner III, MD Transcribed by Larissa Khan Authenticated and [facility]
--- NOTE | 2023-10-23 11:50 | NM_ITS ---
APPROVED REPORT Exam: Nuclear Stress Test Indication: CAD, 1 STENT, HTN, HYPERLIPIDEMIA, FM HX, C.P., FATIGUE Patient Location: Outpatient Stress Tech: Suzan Londono [place] Tech:Swati Thurman LAMIN RT (R)(N)(M) Ht: 5 ft 2 in Wt: 150 lbs Bra Size: 36B HR: 79 bpm BP: 172/79 mmHg BSA: 1.69 m2 TID: 1.28 BMI: 27.4 History: CAD, 1 STENT, HTN, HYPERLIPIDEMIA, FM HX, C.P., FATIGUE Procedure: Patient received 0.4 mg of intravenous Lexiscan, resting heart rate 79 bpm, resting blood pressure 172/79 mmHg, with Lexiscan maximum heart rate achieved was 115 bpm which is % of the maximum predicted heart rate and blood pressure was 130/59 mmHg. With Lexiscan, patient denied any complaint of chest pain. Cardiac Stress and Resting SPECT Images: Cardiac Stress and Resting SPECT images were obtained using technetium 99m Myoview 31.7 mCi stress and 10.23 mCi at rest. Technically difficult study due to significant radiotracer uptake in the GI tract approaching the inferior border of the LV wall. This may affect the diagnostic interpretation of the study findings. Resting and stress imaging in supine and prone positions demonstrate no focal evidence of fixed or reversible perfusion defects. There is increase in transient ischemic dilatation ratio (TID 1.28), suggestive of possible multivessel disease or balanced ischemia. Gated imaging demonstrates mild reduction in global LV systolic function. LVEF is calculated at 46%. Conclusion: Technically difficult study due to significant radiotracer uptake in the GI tract approaching the inferior border of the LV wall. This may affect the diagnostic interpretation of the study findings. No focal evidence of fixed or reversible perfusion defects. There is increase in transient ischemic dilatation ratio (TID 1.28), suggestive of possible multivessel disease or balanced ischemia. Gated imaging demonstrates mild reduction in global LV systolic function. LVEF is calculated at 46%. Electronically signed by : Geraldine William MD 10/25/2023 12:31:35
[2023-10-23] MEDS: SODIUM CHLORIDE 0.9% 10ML SYR (RAD ONLY) 10 ML IV ×2 (12:15→13:10)
[2023-10-23] MEDS: REGADENOSON 0.4MG/5ML SYRINGE 0.4 MG IV (13:10)
[2023-10-23] MEDS: ISOTOPE MYOVIEW (PER STUDY) 1 DOSE IV (15:05)
== END 2023-10-23 23:59 | disposition home or self-care (01) ==
PROVIDERS: PCP Internal Medicine; Visit Provider Internal Medicine
DX: R42 Dizziness and giddiness (principal); R06.09 Other forms of dyspnea; R07.89 Other chest pain; I11.0 Hypertensive heart disease with heart failure; I25.10 Atherosclerotic heart disease of native coronary artery without angina pectoris; I50.20 Unspecified systolic (congestive) heart failure; Z95.828 Presence of other vascular implants and grafts; Z87.891 Personal history of nicotine dependence
CPT/HCPCS: 78452; 93017; 93018; 93880; A9502; J2785

== ENCOUNTER 2023-11-17 09:09 | Day surgery (SDC) | payer MEDICARE, SELFPAY ==
[2023-11-17] VITALS (13 sets, daily range): BP systolic 106–170; BP diastolic 62–95; PULSE 57–70; RESP 16–18; O2SAT 97–98; BMI 29.2
--- NOTE | 2023-11-17 07:05 | IR_ITS ---
APPROVED REPORT Patient Location: Outpatient Stock Room Manager: LAMIN Cunningham RT (R) PROCEDURES Left heart catheterization Left ventriculogram Selective coronary INDICATION Angina pectoris, Abnormal Myoview, Informed consent was obtained prior to the procedure. COMPLICATIONS None Estimated Blood Loss: Less than 10 mls TECHNIQUE One percent lidocaine used to anesthetize the right anterior aspect of the wrist. The right radial artery was accessed via the Seldinger technique. A 6 [place] sheath was placed in the right radial artery. 2.5 mg of Verapamil, 800 mcg of nitroglycerin, 1mg Lidocaine and 5000 U Heparin were given through the arterial sheath. The papa catheter was also used to perform left heart catheterization, left ventriculogram and selective coronary angiogram. At the end of the procedure the sheath was removed good hemostasis was achieved using Traclet band, patient was transferred to the postop holding area in stable condition. ANGIOGRAPHIC RESULTS The left main artery Normal The left anterior descending artery Normal The circumflex artery Normal The right coronary artery Dominant normal The HUGHES ventriculogram reveals Normal 65% The left ventricular end-diastolic pressure 15 mmHg IMPRESSION Normal coronary arteries Normal ejection fraction Normal EDP PLAN 1. Evaluation of noncardiac symptoms Electronically signed by : Les Almanza MD 11/17/2023 13:18:45
[2023-11-17 09:40] LABS: Basophils % 0.4 % (0.1-2.0); Eosinophils # 0.1 K/mm3 (0.0-0.4); Hematocrit 38.8 % (37.0-47.0); Hemoglobin 12.5 g/dL (12.2-16.2); Lymphocytes # 0.9 K/mm3 (0.7-4.5); Lymphocytes % 16.2 % (10-50); Mean Corpuscular HGB Conc 32.1 g/dL (31.8-35.4); Mean Corpuscular Volume 96.5 fl (81-99); Mean Platelet Volume 8.7 fl (7.4-10.4); Monocytes # 0.5 K/mm3 (0.1-1.0); Monocytes % 9.9 % (1.7-9.3); Neutrophils # 3.8 K/mm3 (1.8-7.8); Neutrophils % 71.4 % (37.0-80.0); Platelet Count 257 K/mm3 (142-424); Red Blood Count 4.02 M/mm3 (4.20-5.40); Red Cell Distribution Width 14.3 % (11.5-17.5); White Blood Count 5.4 K/mm3 (4.8-10.8)
[2023-11-17 09:46] LABS: Chloride 96 mmol/L (98-107); Potassium 3.9 mmoL/L (3.5-5.1); Sodium 133 mmol/L (136-145)
[2023-11-17 09:49] LABS: Anion Gap 10.9 mEq/L (5-15); Blood Urea Nitrogen 8 mg/dl (7-17); Carbon Dioxide 30 mmol/L (22.0-30.0); Creatinine Clearance Estimated 61 mL/min (50-200); Estimated Glomerular Filt Rate 83 ml/min (>60); GFR (African American) 100 ML/MIN (>60)
[2023-11-17 09:50] LABS: Calcium 8.3 mg/dl (8.4-10.2); Glucose 98 mg/dl (74-100)
--- NOTE | 2023-11-17 11:06 | SUR.PREOP ---
Pt asked staff for some water to take some medicine with she brought from home, educated pt that we cannot let her take any medications from outside the facility without pharmacy verifying what medication they are. Pt stated she would wait until she gets home.
[2023-11-17] MEDS: HEPARIN 1,000 UNITS/ML 10ML VIAL (CATH LAB) 10000 UNIT IV (11:49)
[2023-11-17] MEDS: HEPARIN 1,000 UNITS/500ML NS (CATH LAB) 3000 UNIT IV (11:49)
[2023-11-17] MEDS: diphenhydrAMINE 50MG/ML VIAL 50 MG IV (11:49)
[2023-11-17] MEDS: LIDOCAINE 1% 10ML MDV 20 ML IJ (11:49)
[2023-11-17] MEDS: NITROGLYCERIN 800MCG/8ML SYR (CATH LAB) 800 MCG IA (11:50)
[2023-11-17] MEDS: VERAPAMIL 2.5MG/ML 2ML VIAL 2.5 MG IV (11:50)
[2023-11-17] MEDS: 0.9 % SODIUM CHLORIDE 500 ML 25 ML IV (11:50)
[2023-11-17] MEDS: FENTANYL 100MCG/2ML VIAL 50 MCG IV (12:04)
[2023-11-17] MEDS: MIDAZOLAM HCL 1MG/1ML 5ML VIAL 1 MG IV (12:05)
[2023-11-17] MEDS: IOPAMIDOL-370 (76%);100ML BOTTLE 50 ML IV (14:55)
== END 2023-11-17 16:37 | disposition home or self-care (01) ==
PROVIDERS: PCP Internal Medicine; Visit Provider Internal Medicine
DX: R94.39 Abnormal result of other cardiovascular function study (principal); R42 Dizziness and giddiness; Z95.828 Presence of other vascular implants and grafts; R06.09 Other forms of dyspnea; I25.118 Atherosclerotic heart disease of native coronary artery with other forms of angina pectoris; I50.20 Unspecified systolic (congestive) heart failure; I11.0 Hypertensive heart disease with heart failure; Z79.899 Other long term (current) drug therapy
CPT/HCPCS: 80048; 85025; 93458; 99152; C1725; C1769; J1200; J1644; J2250; J3010; Q9967

== ENCOUNTER 2023-12-02 14:36 | Outpatient (CLI) | payer MEDICARE, MEDICAID, SELFPAY ==
--- NOTE | 2023-12-02 14:37 | MR_ITS ---
PROCEDURE INFORMATION: Exam: MR Thoracic Spine Without and With Contrast Exam date and time: 12/02/2023 3:29 PM Age: 68 years old Clinical indication: Pain in thoracic spine; Additional info: Back pain TECHNIQUE: Imaging protocol: Magnetic resonance imaging of the thoracic spine without and with contrast. Contrast material: PROHANCE; Contrast volume: 15 ml; Contrast route: IV; COMPARISON: CT ANGIO ABDOMEN PELVIS 10/18/2023 1:23 PM FINDINGS: Bones/joints: Unremarkable. No fracture. Normal alignment. Spinal cord: Normal signal. No cord compression. T1-T2: No significant disc bulge or herniation. No severe spinal canal stenosis. No significant neural foraminal narrowing. T2-T3: No significant disc bulge or herniation. No severe spinal canal stenosis. No significant neural foraminal narrowing. T3-T4: No significant disc bulge or herniation. No severe spinal canal stenosis. No significant neural foraminal narrowing. T4-T5: No significant disc bulge or herniation. No severe spinal canal stenosis. No significant neural foraminal narrowing. T5-T6: No significant disc bulge or herniation. No severe spinal canal stenosis. No significant neural foraminal narrowing. T6-T7: No significant disc bulge or herniation. No severe spinal canal stenosis. No significant neural foraminal narrowing. T7-T8: No significant disc bulge or herniation. No severe spinal canal stenosis. No significant neural foraminal narrowing. T8-T9: No significant disc bulge or herniation. No severe spinal canal stenosis. No significant neural foraminal narrowing. T9-T10: No significant disc bulge or herniation. No severe spinal canal stenosis. No significant neural foraminal narrowing. T10-T11: No significant disc bulge or herniation. No severe spinal canal stenosis. No significant neural foraminal narrowing. T11-T12: No significant disc bulge or herniation. No severe spinal canal stenosis. No significant neural foraminal narrowing. T12-L1: No significant disc bulge or herniation. No severe spinal canal stenosis. No significant neural foraminal narrowing. Soft tissues: Unremarkable. Vasculature: The patient is post endovascular stent graft of the thoracic aorta incidentally noted. IMPRESSION: Essentially unremarkable examination of the thoracic spine.
[2023-12-02] MEDS: GADOTERIDOL INJ 20ML SYRINGE 15 ML IV (16:53)
[2023-12-02] MEDS: SODIUM CHLORIDE 0.9% 10ML SYR (RAD ONLY) 10 ML IV (16:53)
== END 2023-12-02 23:59 | disposition home or self-care (01) ==
LOC: RAD 14:37
PROVIDERS: PCP Family Medicine; Visit Provider Family Medicine
DX: M54.9 Dorsalgia, unspecified (principal); Z87.828 Personal history of other (healed) physical injury and trauma
CPT/HCPCS: 72157; A9576

== ENCOUNTER 2024-01-04 15:40 | Outpatient (CLI) | payer MEDICARE, MEDICAID, SELFPAY ==
[2024-01-04 21:14] LABS: Thyroid Stimulating Hormone 0.35 uIU/mL (0.465-4.68)
== END 2024-01-04 23:59 | disposition home or self-care (01) ==
LOC: LAB.DROPOF 01-05 10:51
PROVIDERS: PCP Family Medicine; Visit Provider Family Medicine
DX: E03.9 Hypothyroidism, unspecified (principal); N39.0 Urinary tract infection, site not specified
CPT/HCPCS: 84439; 84443; 87086

== ENCOUNTER 2024-02-26 14:44 | Outpatient (CLI) | payer MEDICARE, MEDICAID, SELFPAY ==
[2024-02-26 18:22] LABS: Alanine Aminotransferase 20 U/L (12-78); Albumin/Globulin Ratio 1.7 (1.1-1.8); Amylase 54 U/L (30-110); Aspartate Amino Transferase 26 U/L (14-36); Bilirubin,Unconjugated 0.2 mg/dL (0.0-1.1); Blood Urea Nitrogen 9 mg/dl (7-17); Calcium 8.4 mg/dl (8.4-10.2); Carbon Dioxide 25 mmol/L (22.0-30.0); Chloride 101 mmol/L (98-107); Estimated Glomerular Filt Rate 71 ml/min (>60); GFR (African American) 86 ML/MIN (>60); Globulin 2.3 g/dL (1.3-3.2); Glucose 103 mg/dl (74-100); Total Protein,Serum 6.3 g/dl (6.3-8.2)
[2024-02-26 18:28] LABS: Bilirubin,Total 0.6 mg/dl (0.2-1.3)
[2024-02-26 18:47] LABS: Basophils % 0.4 % (0.1-2.0); Eosinophils % 0.5 % (0.1-12.0); Hematocrit 36.7 % (37.0-47.0); Hemoglobin 12.3 g/dL (12.2-16.2); Lymphocytes # 0.7 K/mm3 (0.7-4.5); Lymphocytes % 8.5 % (10-50); Mean Corpuscular HGB Conc 33.6 g/dL (31.8-35.4); Mean Corpuscular Hemoglobin 30.7 pg (27.0-31.2); Mean Corpuscular Volume 91.5 fl (81-99); Mean Platelet Volume 9.2 fl (7.4-10.4); Monocytes # 0.5 K/mm3 (0.1-1.0); Monocytes % 5.8 % (1.7-9.3); Neutrophils # 6.6 K/mm3 (1.8-7.8); Neutrophils % 84.8 % (37.0-80.0); Platelet Count 221 K/mm3 (142-424); Red Blood Count 4.01 M/mm3 (4.20-5.40); Red Cell Distribution Width 14.4 % (11.5-17.5); White Blood Count 7.8 K/mm3 (4.8-10.8)
[2024-02-26 18:53] LABS: Hemoglobin A1C 5.7 % (4.0-6.0); Thyroid Stimulating Hormone 1.84 uIU/mL (0.465-4.68)
[2024-02-26 18:54] LABS: Anion Gap 10.9 mEq/L (5-15); Potassium 3.9 mmoL/L (3.5-5.1); Sodium 133 mmol/L (136-145)
[2024-02-26 18:59] LABS: Alkaline Phosphatase 129 U/L (38-126); Bilirubin,Direct 0.2 mg/dl (0.0-0.4); Bilirubin,Indirect 0.4 mg/dL (0.0-0.9)
[2024-02-26 19:00] LABS: Lipase 103 U/L (23-300)
[2024-02-26 21:03] LABS: HIV (1&2) Antibody Rapid NONREACTIVE (NONREACTIVE)
[2024-02-28 09:09] LABS: HCV Ab Non Reactive (Non Reactive)
== END 2024-02-26 23:59 | disposition home or self-care (01) ==
LOC: LAB.DROPOF 02-29 10:47
PROVIDERS: PCP Family Medicine; Visit Provider Family Medicine
DX: N20.1 Calculus of ureter (principal); R73.03 Prediabetes; E03.9 Hypothyroidism, unspecified; R19.7 Diarrhea, unspecified
CPT/HCPCS: 80053; 80076; 82150; 83036; 83690; 84443; 85025; 86803; 87389

== ENCOUNTER 2024-02-28 15:31 | Outpatient (CLI) | payer MEDICARE, MEDICAID, SELFPAY ==
[2024-02-28 15:49] LABS: Adenovirus F 40/41, stool Not Detected (NotDetected); Astrovirus Not Detected (NotDetected); Campylobacter Not Detected (NotDetected); Clostridium Difficile A/B, PCR Not Detected (NotDetected); Cryptosporidium Not Detected (NotDetected); Cyclospora Cayetanesis Not Detected (NotDetected); Entamoeba histolytica Not Detected (NotDetected); Enteroaggregative E coli Not Detected (NotDetected); Enteropathogenic E coli Not Detected (NotDetected); Enterotoxigenic E coli Not Detected (NotDetected); Giardia lamblia Not Detected (NotDetected); Norovirus Not Detected (NotDetected); Plesimonas Shigalloides, PCR Not Detected (NotDetected); Rotavirus A Not Detected (NotDetected); Salmonella, PCR Not Detected (NotDetected); Shiga-like toxin E coli Not Detected (NotDetected); Shigella Enterovasive E coli Not Detected (NotDetected); Vibrio Cholerae Not Detected (NotDetected); Vibrio, PCR Not Detected (NotDetected); Yersinia Entercolitica, PCR Not Detected (NotDetected)
[2024-02-28 18:10] LABS: Sapovirus Not Detected (NotDetected)
== END 2024-02-28 23:59 | disposition home or self-care (01) ==
LOC: LAB.DROPOF 15:32
PROVIDERS: PCP Family Medicine; Visit Provider Family Medicine
DX: R19.7 Diarrhea, unspecified (principal); E03.9 Hypothyroidism, unspecified; N20.1 Calculus of ureter; R73.03 Prediabetes
CPT/HCPCS: 80053; 80076; 82150; 83036; 83690; 84443; 85025; 86803; 87389; 87506

== ENCOUNTER 2024-03-24 12:57 | Emergency (ER) | payer MEDICARE, MEDICAID, SELFPAY ==
--- NOTE | 2024-03-24 13:05 | ED_ITS ---
Discharge Plan Disposition Patient Disposition: Home, Self-Care Condition: Good Prescriptions Prescriptions: No Action nitroglycerin 0.3 mg tablet, sublingual 0.3 mg sublingual Q5M PRN (Reason: chest pain) Qty: 20 0RF Rx Instructions: do not exceed 3 doses per episode atorvastatin 40 mg tablet PO dicyclomine 10 mg capsule 10 mg PO TID Qty: 270 3RF mirabegron [Myrbetriq] 25 mg tablet extended release 24 hr 25 mg PO DAILY Qty: 30 2RF levothyroxine [Synthroid] 112 mcg tablet 112 mcg PO DAILY Qty: 90 0RF Dupixent Syringe 300 mg/2 mL syringe See Rx Instructions .ROUTE .COMPLEX Qty: 8 5RF Dose Instruction: INJECT 300MG UNDER THE SKIN ONCE WEEKLY Rx Instructions: INJECT 300MG UNDER THE SKIN ONCE WEEKLY gabapentin 300 mg capsule 300 mg PO BID Qty: 60 2RF desvenlafaxine succinate 50 mg tablet extended release 24 hr See Rx Instructions .ROUTE .COMPLEX Qty: 30 2RF Dose Instruction: TAKE 1 TABLET BY MOUTH ONCE A DAY. Rx Instructions: TAKE 1 TABLET BY MOUTH ONCE A DAY. methocarbamol 500 mg tablet See Rx Instructions .ROUTE .COMPLEX Qty: 60 2RF Dose Instruction: TAKE 1 TABLET BY MOUTH THREE TIMES A DAY NEEDED FOR PAIN Rx Instructions: TAKE 1 TABLET BY MOUTH THREE TIMES A DAY NEEDED FOR PAIN diphenoxylate-atropine 2.5-0.025 mg tablet 1 tab PO Q6H PRN (Reason: IBS) Qty: 30 0RF aspirin 81 mg Tablet,Chewable 81 mg PO DAILY ondansetron 4 mg tablet,disintegrating 4 mg PO Q8H PRN (Reason: nausea and vomiting) 4 Days Qty: 12 0RF Referrals Follow up/Referrals: Amado Cosme MD [Staff Physician] - See instructions Alicia Muñiz APRN [Primary Care Provider] - See instructions Activity Restrictions/Add. Instructions Additional Instructions/Restrictions: Please call tomorrow to make an appointment with pain management for your vertebral fractures. Follow-up with your PCP within 48 hours for recheck. For no improvement or worsening symptoms return to ER as needed. Clinical Impressions Clinical Impression: Compression fracture Instructions Patient Instructions: DI for Vertebral Fracture Print Language Print Language: [place] Discharge ED Provider: Osorio Ndiaye Adult HPI <HELEN Maria - Last Filed: 03/24/24 16:37> General Chief complaint: Back Pain/Injury Stated complaint: ao 03/20 back pain, sinus congestion Time Seen by Provider: 03/24/24 13:05 History of Present Illness HPI narrative: Patient presents for left upper back pain. Patient states that she was standing on a chair and as she was trying to step down the chair slipped and she landed on the left side of her upper back. She been having pain since. She denies any difficulty breathing fever chills hemoptysis hematochezia melena loss of motor or sensory. Related Data Home Medications ?Medication ?Instructions ?Recorded ?Confirmed aspirin 81 mg chewable tablet 81 mg PO DAILY 07/14/23 03/08/24 atorvastatin 40 mg tablet mg PO 08/13/23 03/08/24 Previous Rx's ?Medication ?Instructions ?Recorded ondansetron 4 mg disintegrating 4 mg PO Q8H PRN nausea and 07/14/23 tablet vomiting 4 days #12 tabs mirabegron 25 mg tablet,extended 25 mg PO DAILY #30 tabs 08/28/23 release 24 hr (Myrbetriq) levothyroxine 112 mcg tablet 112 mcg PO DAILY #90 tabs 09/15/23 (Synthroid) nitroglycerin 0.3 mg sublingual 0.3 mg sublingual Q5M PRN chest 10/07/23 tablet pain #20 tabs dupilumab 300 mg/2 mL subcutaneous See Rx Instructions .Route 12/02/23 syringe (Dupixent) .COMPLEX #8 mL gabapentin 300 mg capsule 300 mg PO BID #60 caps 01/08/24 desvenlafaxine succinate 50 mg See Rx Instructions .Route 02/09/24 tablet,extended release 24 hr .COMPLEX #30 tabs methocarbamol 500 mg tablet See Rx Instructions .Route 02/18/24 .COMPLEX #60 tabs dicyclomine 10 mg capsule 10 mg PO TID #270 caps 02/26/24 diphenoxylate-atropine 2.5 1 tab PO Q6H PRN IBS #30 tabs 03/23/24 mg-0.025 mg tablet Allergies Allergy/AdvReac Type Severity Reaction Status Date / Time Penicillins Allergy Intermediate Verified 03/08/24 13:21 Sulfa (Sulfonamide Allergy Intermediate Verified 03/08/24 13:21 Antibiotics) lisinopril Allergy Mild Cough Verified 03/08/24 13:21 PFSH <HELEN Maria - Last Filed: 03/24/24 16:37> [facility] Disclaimer: The information contained in this section may have been updated after the patient was seen, as this information can be updated by other users. Medical History Hypothyroid Hypertension Aortic dissection Social History Smoking Status: Former smoker alcohol intake: never current occupational status: retired Travel in the last 8 weeks: None Have you lived/traveled outside [place] in past 30 days?: No Contact w/someone who lives/traveled outside US past 30 days?: No Exposure to someone with infectious disease in past 14 days?: No Do you have a fever (greater than 100.4 F or 38 C)?: No Have you tested positive for COVID-19: No Exposed to someone with COVID-19 in past 14 days?: No Do you have a sore throat?: No Do you have a cough?: No Do you have any weakness?: No Do you have any diarrhea?: No Are you experiencing any unusual bleeding?: No Do you have any muscle aches/pain?: No Do you have any abdominal pain?: No Are you experiencing loss of taste or smell?: No Other Medical History Have you received the Pneumonia Vaccine: Yes <HELEN Maria - Last Filed: 03/24/24 16:37> ROS Obtained: Yes Systems reviewed as appropriate & no additional complaints except as documented Physical Exam <HELEN Maria - Last Filed: 03/24/24 16:37> General General appearance: alert and in no apparent distress Head Head exam: atraumatic and normal inspection Eye Eye exam: Present normal appearance, PERRL and EOMI ENT ENT exam: Present normal exam, normal oropharynx and mucous membranes moist Neck Neck exam: Present normal inspection, full ROM and trachea midline; Absent lymphadenopathy Chest Chest inspection: Present normal inspection and symmetric chest wall rise Respiratory Respiratory exam: Present normal lung sounds bilaterally Cardiovascular Cardiovascular exam: Present regular rate Abdominal Exam Abdominal exam: Present soft and normal bowel sounds; Absent tenderness, guarding or rebound Extremities Exam Extremities exam: Present normal inspection and full ROM Neurological Exam Neurological exam: Present alert and oriented X3 Psychiatric Psychiatric exam: Present normal affect and normal mood Skin Skin exam: Present warm, dry and normal color Lymphatic Lymphatic Findings: no adenopathy Medical Decision Making <HELEN Maria - Last Filed: 03/24/24 16:37> Medical Records Medical records reviewed: Yes I reviewed the patient's medical records. Screening: Per USPSTF and CDC recommendations, given the prevalence of disease in our region, it is our hospital?s policy to screen for HIV and viral Hepatitis for all patients aged 18 and over and those with ongoing risk factors. [place] Inquiry Pt receiving controlled substance: No Vital Signs: 03/24/24 13:11 03/24/24 16:47 Temperature 97.9 F 97.9 F Temperature Source Oral Oral Pulse Rate 65 Pulse Rate [Right Radial] 65 Respiratory Rate 18 18 Blood Pressure 140/73 Blood Pressure [Right Arm] 140/93 H Blood Pressure Mean [Right Arm] 108 02 Sat by Pulse Oximetry 95 Oxygen Delivery Method Room Air Lab Data Lab results reviewed: Yes I reviewed the patient's lab results. Orders (Tests/Meds): ED MEDICATIONS Discontinued Medications Generic Name Dose Route Start Last Admin Trade Name Freq PRN Reason Stop Dose Admin Acetaminophen 1,000 mg 03/24/24 13:21 03/24/24 14:44 Acetaminophen 500mg Tab PO 03/24/24 13:22 1,000 mg ONCE ONE Administration Ibuprofen 800 mg 03/24/24 13:21 03/24/24 14:44 Ibuprofen 400 Mg Tablet PO 03/24/24 13:22 800 mg ONCE ONE Administration Lidocaine 1 each 03/24/24 13:21 03/24/24 14:45 Lidocaine 5% Transdermal Patch TP 03/24/24 13:22 1 each ONCE ONE Administration Methocarbamol 500 mg 03/24/24 13:21 03/24/24 14:45 Methocarbamol 500mg Tablet PO 03/24/24 13:22 500 mg ONCE ONE Administration ORDERS Category Date Time Status CT cervical spine wo con Stat Cat Scan 03/24/24 14:[address] chest wo con Stat Cat Scan 03/24/24 13:[address] head/brain wo con Stat Cat Scan 03/24/24 14:[address] lumbar spine wo con Stat Cat Scan 03/24/24 14:[address] thoracic spine wo con Stat Cat Scan 03/24/24 14:36 Completed Medical Decision Narrative: In summary patient is a 69-year-old female who presents to the emergency department for evaluation of left upper back pain. Patient is hemodynamically stable upon arrival, afebrile. Zickel exam is remarkable for tenderness palpation in the left upper back without ecchymosis contusions abrasions edema palpable bony deformity. Patient has no midline spine tenderness.. Differential diagnosis includes contusion versus fracture. Initial workup will be conducted with CT scan of the chest without contrast. Initial interventions include Tylenol ibuprofen Lidoderm patch. Initial workup reviewed by me her hematologic labs are nonactionable and her imaging via my informal interpretation is significant for a chronic left posterior rib fracture along with T11 and T8 mild superior endplate fractures. Upon repeat evaluation is still neurovascularly intact had minimal improvement after initial intervention. Given this patient is appropriate for discharge with referral to pain management for ongoing management. <Osorio Ndiaye MD - Last Filed: 03/24/24 17:00> Vital Signs: 03/24/24 13:11 03/24/24 16:47 Temperature 97.9 F 97.9 F Temperature Source Oral Oral Pulse Rate 65 Pulse Rate [Right Radial] 65 Respiratory Rate 18 18 Blood Pressure 140/73 Blood Pressure [Right Arm] 140/93 H Blood Pressure Mean [Right Arm] 108 02 Sat by Pulse Oximetry 95 Oxygen Delivery Method Room Air Orders (Tests/Meds): ED MEDICATIONS Discontinued Medications Generic Name Dose Route Start Last Admin Trade Name Danyq PRN Reason Stop Dose Admin Acetaminophen 1,000 mg 03/24/24 13:21 03/24/24 14:44 Acetaminophen 500mg Tab PO 03/24/24 13:22 1,000 mg ONCE ONE Administration Ibuprofen 800 mg 03/24/24 13:21 03/24/24 14:44 Ibuprofen 400 Mg Tablet PO 03/24/24 13:22 800 mg ONCE ONE Administration Lidocaine 1 each 03/24/24 13:21 03/24/24 14:45 Lidocaine 5% Transdermal Patch TP 03/24/24 13:22 1 each ONCE ONE Administration Methocarbamol 500 mg 03/24/24 13:21 03/24/24 14:45 Methocarbamol 500mg Tablet PO 03/24/24 13:22 500 mg ONCE ONE Administration ORDERS Category Date Time Status CT cervical spine wo con Stat Cat Scan 03/24/24 14:[address] chest wo con Stat Cat Scan 03/24/24 13:[address] head/brain wo con Stat Cat Scan 03/24/24 14:[address] lumbar spine wo con Stat Cat Scan 03/24/24 14:[address] thoracic spine wo con Stat Cat Scan 03/24/24 14:36 Completed Medical Decision Narrative: In summary patient is a 69-year-old female who presents to the emergency department for evaluation of left upper back pain. Patient is hemodynamically stable upon arrival, afebrile. Zickel exam is remarkable for tenderness palpation in the left upper back without ecchymosis contusions abrasions edema palpable bony deformity. Patient has no midline spine tenderness.. Differential diagnosis includes contusion versus fracture. Initial workup will be conducted with CT scan of the chest without contrast. Initial interventions include Tylenol ibuprofen Lidoderm patch. Initial workup reviewed by me her hematologic labs are nonactionable and her imaging via my informal interpretation is significant for a chronic left posterior rib fracture along with T11 and T8 mild superior endplate fractures. Upon repeat evaluation is still neurovascularly intact had minimal improvement after initial intervention. Given this patient is appropriate for discharge with referral to pain management for ongoing management. I was consulted by the BRENDA, and we discussed the complexity of the problems being addressed.I approved the treatment and management plan for this patient?s care in the Emergency Department, thus performing a substantive portion of the medical decision making.Signed, Osorio Ndiaye MD Critical Care <HELEN Maria - Last Filed: 03/24/24 16:37> Critical Care Time Critical Care Time: No
[2024-03-24 13:11] VITALS: BP 140/93; PULSE 65; RESP 18; TEMP 36.6; O2SAT 95; BMI 28.7
--- NOTE | 2024-03-24 13:22 | CT_ITS ---
FINAL REPORT TECHNIQUE: Axial CT images were performed from the lung apices through the upper abdomen. Coronal and sagittal reformats were submitted. This study was performed with techniques to keep radiation doses as low as reasonably achievable (ALARA). Individualized dose reduction techniques using automated exposure control or adjustment of mA and/or kV according to the patient's size were employed. CLINICAL HISTORY: Fall on Thursday, left upper back pain COMPARISON: 08/19/2023 FINDINGS: The patient is post right thyroidectomy. There is no axillary adenopathy. A thoracic aortic stent is present. There is no hilar or mediastinal mass or adenopathy. Heart size is normal. Moderate left coronary artery calcifications are present. There is no pericardial or pleural effusion. There is a nodule in the anteromedial left lower thorax, which measures 17 mm, was previously 21 mm in August 2023. Mild changes of emphysema and mild scarring are present. There is a chronic left 11th posterior rib fracture. There are mild superior endplate compression fractures of both the T8 and T11 vertebral bodies of uncertain age, however new since the prior exam of 08/19/2023. MRI is suggested for further evaluation if clinically indicated. The gallbladder has been surgically resected. IMPRESSION: Nodule in the anteromedial left lower thorax measures 17 mm on today's examination, was 21 mm previously. Additional follow-up in 12 months is suggested to evaluate stability. Mild T8 and T11 superior endplate compression fractures, of uncertain age but new since the prior exam of 08/19/2023. MRI suggested for further evaluation as clinically indicated. Reviewed, Interpreted and Dictated by Raf Horner III, MD Transcribed by Larissa Khan Authenticated and [facility]
--- NOTE | 2024-03-24 14:36 | CT_ITS ---
FINAL REPORT TECHNIQUE: Axial images were obtained of the cervical spine by computed tomography. Coronal and sagittal reconstruction process performed. This study was performed with techniques to keep radiation doses as low as reasonably achievable (ALARA). Individualized dose reduction techniques using automated exposure control or adjustment of mA and/or kV according to the patient''s size were employed. CLINICAL HISTORY: Fall FINDINGS: No fracture is identified. There are moderate degenerative changes with multilevel neuroforaminal narrowing. There is no significant central canal stenosis. There is kyphosis centered on C4. IMPRESSION: No acute fracture. Degenerative disc disease as above. Reviewed, Interpreted and Dictated by Raf Horner III, MD Transcribed by Pilar Onofre Authenticated and [facility]
--- NOTE | 2024-03-24 14:36 | CT_ITS ---
FINAL REPORT TECHNIQUE: Axial images were performed through the lumbar spine by computed tomography. Sagittal reconstruction images were also performed. This study was performed with techniques to keep radiation doses as low as reasonably achievable, (ALARA). Individualized dose reduction techniques using automated exposure control or adjustment of mA and/or kV according to the patient''s size were employed. CLINICAL HISTORY: Fall, pain FINDINGS: Sagittal reconstruction images demonstrate no subluxation. No fractures identified. There are moderate degenerative changes. Note is made of levoscoliosis. IMPRESSION: Moderate degenerative changes without acute bony abnormality. Reviewed, Interpreted and Dictated by Raf Horner III, MD Transcribed by Pilar Onofre Authenticated and [facility]
--- NOTE | 2024-03-24 14:36 | CT_ITS ---
FINAL REPORT TECHNIQUE: Axial images through the thoracic spine were performed. Sagittal reconstruction images were performed. This study was performed with techniques to keep radiation doses as low as reasonably achievable, (ALARA). Individualized dose reduction techniques using automated exposure control or adjustment of mA and/or kV according to the patient's size were employed. CLINICAL HISTORY: Fall, pain FINDINGS: There are mild superior endplate compression fractures of T8 and T11 of uncertain age. Multilevel mild and moderate degenerative changes are identified. There is no canal stenosis. IMPRESSION: Compression fractures of T8 and T11 of uncertain age. Reviewed, Interpreted and Dictated by Raf Horner III, MD Transcribed by Pilar Onofre Authenticated and [facility]
--- NOTE | 2024-03-24 14:36 | CT_ITS ---
FINAL REPORT CLINICAL HISTORY: Fall FINDINGS: Axial images of the head were obtained without contrast. Coronal reformatted images were also obtained. This study was performed with techniques to keep radiation doses as low as reasonably achievable (ALARA). Individualized dose reduction techniques using automated exposure control or adjustment of mA and/or kV according to the patient's size were employed. There is generalized age-appropriate atrophy. Periventricular low-attenuation areas are seen consistent with mild chronic ischemic changes. The choroid plexus is higher in attenuation than usual. Most of this likely represents calcification but small choroid hemorrhage is not excluded. There is no evidence of acute infarct. There is no evidence of shift of the midline structures. No skull abnormality is seen on the bone window images. There is mucosal thickening of the sinuses. IMPRESSION: Choroid plexus higher and attenuation, most likely represents calcification but small hemorrhage is not excluded. Recommend follow-up CT. Reviewed, Interpreted and Dictated by Raf Horner III, MD Transcribed by Pilar Onofre Authenticated and [facility]
[2024-03-24] MEDS: IBUPROFEN 400 MG TABLET 800 MG PO (14:44)
[2024-03-24] MEDS: ACETAMINOPHEN 500MG TAB 1000 MG PO (14:44)
[2024-03-24] MEDS: METHOCARBAMOL 500MG TABLET 500 MG PO (14:45)
[2024-03-24] MEDS: LIDOCAINE 5% TRANSDERMAL PATCH 1 EACH TP (14:45)
[2024-03-24 16:47] VITALS: BP 140/73; PULSE 65; RESP 18; TEMP 36.6; O2SAT 95
== END 2024-03-24 16:49 | disposition home or self-care (01) ==
PROVIDERS: Emergency Provider Emergency Medicine; PCP Family Medicine
DX: S22.080A Wedge compression fracture of T11-T12 vertebra, initial encounter for closed fracture (principal); M54.9 Dorsalgia, unspecified; R09.81 Nasal congestion; W07.XXXA Fall from chair, initial encounter; Y93.89 Activity, other specified; Y92.009 Unspecified place in unspecified non-institutional (private) residence as the place of occurrence of the external cause
CPT/HCPCS: 70450; 71250; 72125; 72128; 72131; 99284

== ENCOUNTER 2024-05-11 16:16 | Emergency (ER) | payer MEDICARE, MEDICAID, SELFPAY ==
[2024-05-11 17:12] VITALS: BP 168/71; PULSE 63; RESP 18; TEMP 36.8; O2SAT 99; BMI 29.2
--- NOTE | 2024-05-11 17:15 | EXP.UTC ---
Discharge Plan Disposition Patient Disposition: Home, Self-Care Condition: Good Prescriptions Prescriptions: New cefdinir 300 mg capsule 300 mg PO BID 7 Days Qty: 14 0RF promethazine 12.5 mg tablet 12.5 mg PO Q6H PRN (Reason: nausea and vomiting) Qty: 20 0RF No Action nitroglycerin 0.3 mg tablet, sublingual 0.3 mg sublingual Q5M PRN (Reason: chest pain) Qty: 20 0RF Rx Instructions: do not exceed 3 doses per episode gabapentin 300 mg capsule 300 mg PO BID Qty: 60 3RF meloxicam 15 mg tablet 15 mg PO DAILY Qty: 30 2RF lidocaine 5 % adhesive patch,medicated 1 patch topical DAILY Qty: 30 2RF Rx Instructions: apply to tender area of back on 12 hours off 12 hours sulfamethoxazole-trimethoprim [Bactrim DS] 800-160 mg tablet 1 tab PO BID 14 Days Qty: 28 0RF hydrocodone-acetaminophen 5-325 mg tablet 1 tab PO Q4-6H PRN (Reason: back pain from compression fratures) Qty: 90 0RF atorvastatin 40 mg tablet PO dicyclomine 10 mg capsule 10 mg PO TID Qty: 270 3RF mirabegron [Myrbetriq] 25 mg tablet extended release 24 hr 25 mg PO DAILY Qty: 30 2RF levothyroxine [Synthroid] 112 mcg tablet 112 mcg PO DAILY Qty: 90 0RF Dupixent Syringe 300 mg/2 mL syringe See Rx Instructions .ROUTE .COMPLEX Qty: 8 5RF Dose Instruction: INJECT 300MG UNDER THE SKIN ONCE WEEKLY Rx Instructions: INJECT 300MG UNDER THE SKIN ONCE WEEKLY desvenlafaxine succinate 50 mg tablet extended release 24 hr See Rx Instructions .ROUTE .COMPLEX Qty: 30 2RF Dose Instruction: TAKE 1 TABLET BY MOUTH ONCE A DAY. Rx Instructions: TAKE 1 TABLET BY MOUTH ONCE A DAY. diphenoxylate-atropine 2.5-0.025 mg tablet 1 tab PO Q6H PRN (Reason: IBS) Qty: 30 0RF aspirin 81 mg Tablet,Chewable 81 mg PO DAILY Referrals Follow up/Referrals: Kana Escobar DO [Primary Care Provider] - See instructions Activity Restrictions/Add. Instructions Additional Instructions/Restrictions: Drink plenty of fluids. Stop the bactrim (sulfamethazole/trimethaprim) that you are on for the UTI. Start the cefdinir (omnicef) that we prescribed. Take the promethazine for nausea. It is a lower dose than what promethazine is prescribed at usually, but it will still make you drowsy. So, don't drive or operate heavy machinery after taking it. Follow up with your regular doctor. GO TO THE ER FOR ANY WORSENING SYMPTOMS Clinical Impressions Clinical Impression: UTI (urinary tract infection) Instructions Patient Instructions: DI for Urinary Tract Infection (UTI), Promethazine, Cefdinir Print Language Print Language: Hebrew Discharge ED Provider: Haroldo Chacon [facility] HPI General Stated complaint: dizzy , nausea Mode of Arrival: Ambulatory Source of Information: Patient Time Seen by Provider: 05/11/24 17:09 Description of Symptoms (Recalled from Triage Doc. by RN): DIZZY, NAUSEA, CAN NOT EAT BUT GAINING WEIGHT X 1 WEEK HEENT Symptoms (Recalled from RN notes): No Resp Symptoms (Recalled from RN notes): No Skin Symptoms (Recalled from RN notes): No MS Symptoms (Recalled from RN notes): No Functional Status (Recalled from RN notes): WNL Related Data Home Medications ?Medication ?Instructions ?Recorded ?Confirmed aspirin 81 mg chewable tablet 81 mg PO DAILY 07/14/23 05/03/24 atorvastatin 40 mg tablet mg PO 08/13/23 05/03/24 Previous Rx's ?Medication ?Instructions ?Recorded mirabegron 25 mg tablet,extended 25 mg PO DAILY #30 tabs 08/28/23 release 24 hr (Myrbetriq) levothyroxine 112 mcg tablet 112 mcg PO DAILY #90 tabs 09/15/23 (Synthroid) nitroglycerin 0.3 mg sublingual 0.3 mg sublingual Q5M PRN chest 10/07/23 tablet pain #20 tabs dupilumab 300 mg/2 mL subcutaneous See Rx Instructions .Route 12/02/23 syringe (Dupixent) .COMPLEX #8 mL desvenlafaxine succinate 50 mg See Rx Instructions .Route 02/09/24 tablet,extended release 24 hr .COMPLEX #30 tabs dicyclomine 10 mg capsule 10 mg PO TID #270 caps 02/26/24 diphenoxylate-atropine 2.5 1 tab PO Q6H PRN IBS #30 tabs 04/28/24 mg-0.025 mg tablet gabapentin 300 mg capsule 300 mg PO BID #60 caps 05/03/24 lidocaine 5 % topical patch 1 patch topical DAILY #30 ea 05/03/24 meloxicam 15 mg tablet 15 mg PO DAILY #30 tabs 05/03/24 sulfamethoxazole 800 1 tab PO BID 14 days #28 tabs 05/03/24 mg-trimethoprim 160 mg tablet (Bactrim DS) hydrocodone 5 mg-acetaminophen 325 1 tab PO Q4-6H PRN back pain from 05/04/24 mg tablet compression fratures #90 tabs cefdinir 300 mg capsule 300 mg PO BID 7 days #14 caps 05/11/24 promethazine 12.5 mg tablet 12.5 mg PO Q6H PRN nausea and 05/11/24 vomiting #20 tabs Allergies Allergy/AdvReac Type Severity Reaction Status Date / Time Penicillins Allergy Intermediate Verified 05/03/24 11:04 Sulfa (Sulfonamide Allergy Intermediate Verified 05/03/24 11:04 Antibiotics) lisinopril Allergy Mild Cough Verified 05/03/24 11:04 Worker's Comp Is this a Worker's Comp case?: No [facility] Disclaimer: The information contained in this section may have been updated after the patient was seen, as this information can be updated by other users. Medical History Hypothyroid Hypertension Aortic dissection Social History Smoking Status: Former smoker alcohol intake: never current occupational status: retired Travel in the last 8 weeks: None Have you lived/traveled outside US in past 30 days?: No Contact w/someone who lives/traveled outside US past 30 days?: No Exposure to someone with infectious disease in past 14 days?: No Do you have a fever (greater than 100.4 F or 38 C)?: No Have you tested positive for COVID-19: No Exposed to someone with COVID-19 in past 14 days?: No Do you have a sore throat?: No Do you have a cough?: No Do you have any weakness?: Yes Do you have any diarrhea?: No Are you experiencing any unusual bleeding?: No Do you have any muscle aches/pain?: No Do you have any abdominal pain?: No Are you experiencing loss of taste or smell?: No ROS Obtained: Yes All systems reviewed & no additional complaints except as documented Constitutional Constitutional: Reports system reviewed and no additional complaints, except as documented, Denies chills and Denies fever(s) Eyes Eyes: Denies eye discharge ENT Ears, Nose, Mouth, and Throat: Denies dysphagia, Denies sore throat and Denies throat swelling Cardiovascular Cardiovascular: Denies chest pain and Denies dyspnea Respiratory Respiratory: Denies chest congestion, Denies cough and Denies dyspnea Gastrointestinal Gastrointestingal: Denies abdominal pain, constipation, diarrhea, dysphagia, nausea or vomiting Genitourinary Female Genitourinary: Reports as per HPI, Reports dysuria, Reports urinary frequency, Denies urinary incontinence, Reports urinary hesitancy and Reports urinary urgency Musculoskeletal Musculoskeletal: Denies arthralgias and Reports back pain Integumentary/Breasts Skin/Breast: Denies rash Neurologic Neurologic: Denies paresthesias Allergic/Immunologic Allergic/Immunologic: Denies throat swelling Physical Exam General General appearance: alert and in no apparent distress Head Head exam: atraumatic and normocephalic Eye Eye exam: Present normal appearance, PERRL and EOMI ENT ENT exam: Present normal exam, mucous membranes moist, TM's normal bilaterally and normal external ear exam Neck Neck exam: Present normal inspection, full ROM and trachea midline; Absent tenderness, meningismus or lymphadenopathy Chest Chest inspection: Present normal inspection and symmetric chest wall rise; Absent tenderness Respiratory Respiratory exam: Present normal lung sounds bilaterally; Absent respiratory distress, wheezes or stridor Cardiovascular Cardiovascular exam: Present regular rate, normal rhythm and normal heart sounds Abdominal Exam Abdominal exam: Present soft and normal bowel sounds; Absent distention, tenderness, guarding, rebound, rigidity, incision, psoas sign, obturator sign, heel tap sign, Caruso's sign, Rovsing's sign or tenderness at McBurney's Point Extremities Exam Extremities exam: Present normal inspection, full ROM and normal capillary refill; Absent tenderness, edema, joint swelling, calf tenderness or cyanosis Back Exam Back exam: Present normal inspection and full ROM; Absent tenderness, CVA tenderness (R) or CVA tenderness (L) Neurological Exam Neurological exam: Present alert, oriented X3 and normal gait Psychiatric Psychiatric exam: Present normal affect and normal mood Skin Skin exam: Present warm, dry, intact and normal color Lymphatic Lymphatic Findings: no adenopathy Medical Decision Making Medical Records Medical records reviewed: No I reviewed the patient's medical records. Screening: Per USPSTF and CDC recommendations, given the prevalence of disease in our region, it is our hospital?s policy to screen for HIV and viral Hepatitis for all patients aged 18 and over and those with ongoing risk factors. [place] Inquiry Pt receiving controlled substance: No Vital Signs: 05/11/24 17:12 Temperature 98.2 F Temperature Source Oral Pulse Rate [Left Radial] 63 Respiratory Rate 18 Blood Pressure [Left Arm] 168/71 H Blood Pressure Mean [Left Arm] 103 02 Sat by Pulse Oximetry 99 Lab Data Lab results reviewed: Yes I reviewed the patient's lab results.
[2024-05-11 17:42] LABS: Apearance,Urine Clear (Clear); Bilirubin,Urine Negative (Negative); Blood, Urine Trace (Negative); Color,Urine Yellow (Yellow); Glucose,Urine (UA) Negative (Negative); Ketones,Urine Negative (Negative); Protein,Urine Negative (Negative); Specific Gravity, Urine 1.025 (1.005-1.030); UTC Leukocyte Esterase,Urine 1+ (Negative); UTC Nitrate,Urine Negative (Negative); Urobilinogen,Urine 0.2 EU/dl (0.2)
[2024-05-11 18:44] VITALS: BP 168/71; PULSE 63; RESP 18; TEMP 36.8
== END 2024-05-11 18:47 | disposition home or self-care (01) ==
PROVIDERS: Emergency Provider Nurse Practitioner Family; PCP Internal Medicine
DX: N39.0 Urinary tract infection, site not specified (principal)
CPT/HCPCS: 81003; 87086; 99213; G0381

== ENCOUNTER 2024-05-22 16:47 | Emergency (ER) | payer MEDICARE, MEDICAID, SELFPAY ==
[2024-05-22 17:25] VITALS: BP 142/82; PULSE 75; RESP 18; TEMP 36.8; O2SAT 98; BMI 27.4
--- NOTE | 2024-05-22 17:31 | ED_ITS ---
Discharge Plan Disposition Patient Disposition: Home, Self-Care Condition: Good Prescriptions Prescriptions: New azithromycin [Zithromax] 250 mg tablet 250 mg PO UD DOSE PK Qty: 6 0RF Rx Instructions: Take two (2) tablets today, then one (1) tablet days #2 thru #5 benzonatate 100 mg capsule 100 mg PO TIDP PRN (Reason: Cough) Qty: 30 0RF methylprednisolone 4 mg Tablets,Dose Pack 4 mg PO DIRECTED 6 Days Qty: 21 0RF Rx Instructions: Take 1 pack as directed for 6 days No Action nitroglycerin 0.3 mg tablet, sublingual 0.3 mg sublingual Q5M PRN (Reason: chest pain) Qty: 20 0RF Rx Instructions: do not exceed 3 doses per episode gabapentin 300 mg capsule 300 mg PO BID Qty: 60 3RF meloxicam 15 mg tablet 15 mg PO DAILY Qty: 30 2RF lidocaine 5 % adhesive patch,medicated 1 patch topical DAILY Qty: 30 2RF Rx Instructions: apply to tender area of back on 12 hours off 12 hours hydrocodone-acetaminophen 5-325 mg tablet 1 tab PO Q4-6H PRN (Reason: back pain from compression fratures) Qty: 90 0RF atorvastatin 40 mg tablet PO dicyclomine 10 mg capsule 10 mg PO TID Qty: 270 3RF diphenoxylate-atropine 2.5-0.025 mg tablet 1 tab PO Q6H PRN (Reason: IBS) Qty: 30 0RF Dupixent Syringe 300 mg/2 mL syringe See Rx Instructions .ROUTE .COMPLEX Qty: 8 0RF Dose Instruction: INJECT 300MG UNDER THE SKIN ONCE WEEKLY Rx Instructions: INJECT 300MG UNDER THE SKIN ONCE WEEKLY desvenlafaxine succinate 50 mg tablet extended release 24 hr See Rx Instructions .ROUTE .COMPLEX Qty: 30 3RF Dose Instruction: TAKE 1 TABLET BY MOUTH ONCE A DAY. Rx Instructions: TAKE 1 TABLET BY MOUTH ONCE A DAY. aspirin 81 mg Tablet,Chewable 81 mg PO DAILY cefdinir 300 mg capsule 300 mg PO BID 7 Days Qty: 14 0RF Referrals Follow up/Referrals: Kana Escobar DO [Primary Care Provider] - See instructions Activity Restrictions/Add. Instructions Additional Instructions/Restrictions: Drink plenty of fluids. Take tylenol or ibuprofen for pain or fever. Take the medications as directed. Follow up with your regular doctor. GO TO THE ER FOR ANY WORSENING SYMPTOMS Clinical Impressions Clinical Impression: Acute viral syndrome, Asthma exacerbation Instructions Patient Instructions: Asthma -- Adult, DI for Viral Syndrome Print Language Print Language: Polish Discharge ED Provider: Haroldo Chacon [facility] [place] HPI General Stated complaint: exp flu- cough, KAYE body aches Mode of Arrival: Ambulatory Source of Information: Patient Time Seen by Provider: 05/22/24 17:31 Description of Symptoms (Recalled from Triage Doc. by RN): EXP TO FLU, BA, CHILLS HEENT Symptoms (Recalled from RN notes): No Resp Symptoms (Recalled from RN notes): Yes Skin Symptoms (Recalled from RN notes): No MS Symptoms (Recalled from RN notes): No Functional Status (Recalled from RN notes): WNL Related Data Home Medications ?Medication ?Instructions ?Recorded ?Confirmed aspirin 81 mg chewable tablet 81 mg PO DAILY 07/14/23 05/03/24 atorvastatin 40 mg tablet mg PO 08/13/23 05/03/24 Previous Rx's ?Medication ?Instructions ?Recorded nitroglycerin 0.3 mg sublingual 0.3 mg sublingual Q5M PRN chest 10/07/23 tablet pain #20 tabs dicyclomine 10 mg capsule 10 mg PO TID #270 caps 02/26/24 diphenoxylate-atropine 2.5 1 tab PO Q6H PRN IBS #30 tabs 04/28/24 mg-0.025 mg tablet gabapentin 300 mg capsule 300 mg PO BID #60 caps 05/03/24 lidocaine 5 % topical patch 1 patch topical DAILY #30 ea 05/03/24 meloxicam 15 mg tablet 15 mg PO DAILY #30 tabs 05/03/24 hydrocodone 5 mg-acetaminophen 325 1 tab PO Q4-6H PRN back pain from 05/04/24 mg tablet compression fratures #90 tabs cefdinir 300 mg capsule 300 mg PO BID 7 days #14 caps 05/11/24 desvenlafaxine succinate 50 mg See Rx Instructions .Route 05/19/24 tablet,extended release 24 hr .COMPLEX #30 tabs dupilumab 300 mg/2 mL subcutaneous See Rx Instructions .Route 05/19/24 syringe (Dupixent) .COMPLEX #8 mL azithromycin 250 mg tablet 250 mg PO UD DOSE PK #6 tabs 05/22/24 (Zithromax) benzonatate 100 mg capsule 100 mg PO TIDP PRN Cough #30 caps 05/22/24 methylprednisolone 4 mg tablets in 4 mg PO DIRECTED 6 days #21 tabs 05/22/24 a dose pack Allergies Allergy/AdvReac Type Severity Reaction Status Date / Time Penicillins Allergy Intermediate Verified 05/03/24 11:04 Sulfa (Sulfonamide Allergy Intermediate Verified 05/03/24 11:04 Antibiotics) lisinopril Allergy Mild Cough Verified 05/03/24 11:04 Worker's Comp Is this a Worker's Comp case?: No [facility] Disclaimer: The information contained in this section may have been updated after the patient was seen, as this information can be updated by other users. Medical History Hypothyroid Hypertension Aortic dissection Social History Smoking Status: Former smoker alcohol intake: never current occupational status: retired Travel in the last 8 weeks: None Have you lived/traveled outside US in past 30 days?: No Contact w/someone who lives/traveled outside US past 30 days?: No Exposure to someone with infectious disease in past 14 days?: No Do you have a fever (greater than 100.4 F or 38 C)?: No Have you tested positive for COVID-19: No Exposed to someone with COVID-19 in past 14 days?: No Do you have a sore throat?: No Do you have a cough?: Yes Do you have any weakness?: No Do you have any diarrhea?: No Are you experiencing any unusual bleeding?: No Do you have any muscle aches/pain?: Yes Do you have any abdominal pain?: No Are you experiencing loss of taste or smell?: No ROS Obtained: Yes All systems reviewed & no additional complaints except as documented Constitutional Constitutional: Reports chills and Reports fever(s) Eyes Eyes: Denies eye discharge ENT Ears, Nose, Mouth, and Throat: Reports as per HPI Cardiovascular Cardiovascular: Denies chest pain Respiratory Respiratory: Denies chest congestion and Reports cough Gastrointestinal Gastrointestingal: Reports nausea; Denies abdominal pain, constipation, cramping, diarrhea or vomiting Musculoskeletal Musculoskeletal: Denies arthralgias Integumentary/Breasts Skin/Breast: Denies rash Neurologic Neurologic: Denies paresthesias Physical Exam General General appearance: alert and in no apparent distress Head Head exam: atraumatic, normocephalic and normal inspection Eye Eye exam: Present normal appearance, PERRL and EOMI ENT ENT exam: Present normal exam, normal oropharynx, mucous membranes moist, TM's normal bilaterally and normal external ear exam Neck Neck exam: Present normal inspection, full ROM and trachea midline; Absent meningismus or lymphadenopathy Chest Chest inspection: Present normal inspection and symmetric chest wall rise; Absent tenderness Respiratory Respiratory exam: Present normal lung sounds bilaterally; Absent respiratory distress Cardiovascular Cardiovascular exam: Present regular rate and normal rhythm; Absent JVD Abdominal Exam Abdominal exam: Present soft and normal bowel sounds; Absent distention, tenderness or guarding Extremities Exam Extremities exam: Present normal inspection, full ROM and normal capillary refill; Absent calf tenderness Back Exam Back exam: Present normal inspection; Absent tenderness Neurological Exam Neurological exam: Present alert and oriented X3 Psychiatric Psychiatric exam: Present normal affect and normal mood Skin Skin exam: Present warm, dry, intact and normal color Lymphatic Lymphatic Findings: no adenopathy Medical Decision Making Medical Records Medical records reviewed: No I reviewed the patient's medical records. Screening: Per USPSTF and CDC recommendations, given the prevalence of disease in our region, it is our hospital?s policy to screen for HIV and viral Hepatitis for all patients aged 18 and over and those with ongoing risk factors. [place] Inquiry Pt receiving controlled substance: No Vital Signs: 05/22/24 17:25 Temperature 98.3 F Temperature Source Oral Pulse Rate [Left Radial] 75 Respiratory Rate 18 Blood Pressure [Left Arm] 142/82 H Blood Pressure Mean [Left Arm] 102 02 Sat by Pulse Oximetry 98 Lab Data Lab results reviewed: Yes I reviewed the patient's lab results.
[2024-05-22 17:34] LABS: UTC Influenza A Antigen Negative (Negative); UTC Influenza B Antigen Negative (Negative)
[2024-05-22 18:01] VITALS: BP 142/82; PULSE 75; RESP 18; TEMP 36.8
[2024-05-22 18:40] LABS: Coronavirus 19, PCR Not Detected (NotDetected); Human Rhinovirus Not Detected (NotDetected); Influenza A, PCR Not Detected (NotDetected); Influenza B, PCR Not Detected (NotDetected); Respiratory Syncytial Virus Not Detected (NotDetected)
== END 2024-05-22 18:08 | disposition home or self-care (01) ==
PROVIDERS: Emergency Provider Nurse Practitioner Family; PCP Internal Medicine
DX: B34.9 Viral infection, unspecified (principal); J45.901 Unspecified asthma with (acute) exacerbation; Z20.818 Contact with and (suspected) exposure to other bacterial communicable diseases
CPT/HCPCS: 87631; 87804; 99212; G0381

== ENCOUNTER 2024-05-27 13:40 | Outpatient (CLI) | payer MEDICARE, MEDICAID, SELFPAY | END 2024-05-27 23:59 | disposition home or self-care (01) | LOC: LAB.DROPOF 05-30 11:54 | PROVIDERS: Visit Provider Family Medicine | DX: N39.0 Urinary tract infection, site not specified (principal) | CPT/HCPCS: 87086; 87210 ==

== ENCOUNTER 2024-06-06 09:09 | Outpatient (CLI) | payer MEDICARE, MEDICAID, SELFPAY ==
--- NOTE | 2024-06-06 09:10 | XR_ITS ---
FINAL REPORT TECHNIQUE: Bone mineral density was calculated of the lumbar spine and hip. CLINICAL HISTORY: osteoporosis COMPARISON: None FINDINGS: Using L1-4, the bone mineral density of the spine is 1.056 g/cm2, corresponding to T-score of 0.1. Using the left hip, the bone mineral density of the femoral neck is 0.774 g/cm2, corresponding to a T-score of -1.4. Using the right hip, the bone mineral density of the femoral neck is 0.786 g/cm?, corresponding to a T-score of -1.3. NOTE: T-score: Standard deviation compared with peak bone mass of young adult mean. *Following the recommendations of the International Society of Bone densitometry, classification of hip BMD is based on the lower of two T-scores; total hip or femoral neck. IMPRESSION: Diminished bone mineral density of the bilateral hips consistent with osteopenia. Normal bone mineral density of the lumbar spine. Reviewed, Interpreted and Dictated by Parish Metzger MD Transcribed by Larissa Khan Authenticated and . [facility]
--- NOTE | 2024-06-06 09:10 | US_ITS ---
FINAL REPORT CLINICAL HISTORY: urination issues COMPARISON: None FINDINGS: ULTRASOUND BLADDER WITH POST VOID RESIDUAL Bladder volumes were estimated based on 3 dimensional measurements, pre- and postvoid. There is no obvious focal bladder wall thickening or bladder mass. Prevoid bladder volume: 125.3 mls Postvoid bladder volume: 11.7 mls IMPRESSION: Normal bladder evaluation. Reviewed, Interpreted and Dictated by Parish Metzger MD Transcribed by Stephanie Salvador Authenticated and [facility]
== END 2024-06-06 23:59 | disposition home or self-care (01) ==
LOC: RAD 09:10
PROVIDERS: PCP Family Medicine; Visit Provider Family Medicine
DX: M81.0 Age-related osteoporosis without current pathological fracture (principal); N30.01 Acute cystitis with hematuria; N20.1 Calculus of ureter
CPT/HCPCS: 76857; 77080

== ENCOUNTER 2024-07-06 12:17 | Outpatient (CLI) | payer MEDICARE, MEDICAID, SELFPAY ==
--- NOTE | 2024-07-06 12:22 | XR_ITS ---
FINAL REPORT CLINICAL HISTORY: fall 2 weeks ago FINDINGS: AP and lateral views of the thoracic spine were obtained. Compared to CT thoracic spine 03/24/2024. Compression deformity of a mid thoracic vertebral body is unchanged from CT of March 2024. Remaining vertebral body heights are preserved. There is mild multilevel degenerative disc disease. No acute paraspinal abnormality. IMPRESSION: No acute osseous abnormality of the thoracic spine. Reviewed, Interpreted and Dictated by Kenzie Jimenez MD Transcribed by Tyesha See Authenticated and [facility]
--- NOTE | 2024-07-06 12:22 | XR_ITS ---
FINAL REPORT CLINICAL HISTORY: fall 2 weeks ago FINDINGS: AP and lateral views of the lumbar spine were obtained. There is no prior exam for comparison. There is no acute fracture or malalignment. Vertebral body height is preserved. Very mild levoscoliosis is noted. Multilevel degenerative disease is most pronounced at L3-4 and L4-5. No acute paraspinal abnormality. IMPRESSION: No acute osseous abnormality of the lumbar spine. Reviewed, Interpreted and Dictated by Kenzie Jimenez MD Transcribed by Tyesha See Authenticated and [facility]
--- NOTE | 2024-07-06 12:22 | XR_ITS ---
FINAL REPORT CLINICAL HISTORY: fall 2 weeks ago, left rib pain FINDINGS: 2 views of the left ribs were obtained. No prior exam available for comparison. Deformity of the anterior aspect of the left 11th rib is age-indeterminate. No other left rib abnormality identified. The visualized lungs are clear. No gross left pneumothorax is identified. IMPRESSION: Age-indeterminate anterior left 11th rib fracture. Reviewed, Interpreted and Dictated by Kenzie Jimenez MD Transcribed by Tyesha See Authenticated and [facility]
--- NOTE | 2024-07-06 12:22 | XR_ITS ---
FINAL REPORT CLINICAL HISTORY: fall 2 weeks ago, left shoulder and neck pain FINDINGS: AP, lateral and odontoid views of the cervical spine were obtained. There is no prior exam for comparison. There is no acute fracture or malalignment. Vertebral body height is preserved. Multilevel degenerative disc disease is most pronounced in the mid and lower cervical spine. The precervical soft tissues are normal. IMPRESSION: No acute osseous abnormality of the cervical spine. Reviewed, Interpreted and Dictated by Kenzie Jimenez MD Transcribed by Tyesha See Authenticated and . [facility]
--- NOTE | 2024-07-06 12:22 | XR_ITS ---
FINAL REPORT CLINICAL HISTORY: fall 2 weeks ago, left shoulder pain and bruising FINDINGS: 3 views of the left shoulder were obtained. No prior exam for comparison. Nondisplaced fracture of the distal left clavicle. No acute fracture or dislocation of the glenohumeral joint. Degenerative joint disease is noted. Soft tissues are unremarkable. IMPRESSION: Nondisplaced left clavicle fracture. Reviewed, Interpreted and Dictated by Kenzie Jimenez MD Transcribed by Tyesha See Authenticated and [facility]
--- NOTE | 2024-07-06 12:22 | XR_ITS ---
FINAL REPORT CLINICAL HISTORY: fall 2 weeks ago, left shoulder pain and bruising, pt unable to raise arm FINDINGS: 2 views of the left scapula were obtained. No prior exam for comparison. Distal left clavicle fracture is displaced. The AC joint is intact. There is deformity of the humeral head which is likely chronic. No scapular fracture identified. IMPRESSION: No scapular fracture. Displaced distal left clavicle fracture. Reviewed, Interpreted and Dictated by Kenzie Jimenez MD Transcribed by Tyesha See Authenticated and [facility]
--- NOTE | 2024-07-06 12:22 | XR_ITS ---
FINAL REPORT CLINICAL HISTORY: fall 2 weeks ago, left ankle pain and swelling FINDINGS: AP, oblique, and lateral views of the left ankle were obtained. No prior exam for comparison. There is no fracture or dislocation. The ankle mortise is intact. Soft tissues are unremarkable. IMPRESSION: No acute osseous abnormality of the left ankle. Reviewed, Interpreted and Dictated by Kenzie Jimenez MD Transcribed by Tyesha See Authenticated and [facility]
== END 2024-07-06 23:59 | disposition home or self-care (01) ==
LOC: RAD 12:18
PROVIDERS: PCP Family Medicine; Visit Provider Family Medicine
DX: M25.572 Pain in left ankle and joints of left foot (principal); M54.9 Dorsalgia, unspecified; M25.512 Pain in left shoulder
CPT/HCPCS: 71100; 72040; 72070; 72100; 73010; 73030; 73610

== ENCOUNTER 2024-07-21 12:12 | Outpatient (CLI) | payer MEDICARE, MEDICAID, SELFPAY ==
[2024-07-21 12:37] LABS: Blood Urea Nitrogen 9 mg/dl (7-17); Estimated Glomerular Filt Rate 83 ml/min (>60); GFR (African American) 100 ML/MIN (>60)
--- OUTSIDE RECORDS SUMMARY | 2024-07-21 23:21 | XMS_ITS ---
Care Plan - [facility] [place] Created on: July 21, 2024 Danielle Villanueva : 1955 Sex: Female Author Organization [facility] [place] Address [address] [place] [id number] Phone Care Team Providers Care Rn Clinical Quality Name Role Phone Rl KATE, Brayd Osborne Unavailable [phone]
--- OUTSIDE RECORDS SUMMARY | 2024-07-21 23:21 | XMS_ITS ---
Author Organization [facility] , [facility] Address [address] [place] [address] Phone Care Team Providers Care Charrer Name Role Phone Rl KATE, Brady Osborne Unavailable [phone] Problems Includes: Active, inactive, and resolved Problems All Visits Onset Date Resolved Date Provider Condition S tatus Lower Back Pain 06/08/2024 Jc Willingham PA-C A ctive Last Documented On 5 2:26PM ; [facility] Midback Pain 06/08/2024 Jc Willingham PA-C Acti ve Last Documented On 5 1:52PM ; [facility], [facility] Plan of Treatment Findings Encounter Date Patient screened for future fall risk: documentation of any fall with injury in past year Non Physician Specified with Jc Willingham PA-C 06/08/2024 Last Documented On 5 12:36PM ; [facility], [facility] Pending Tests Order Diagnosis Results Due Ordering P rovider Radiology - MRI MRI Lumbar Spine Low back pain, unspecified 06/22/24 Jc Willingham PA-C Last Documented On 5 2:36PM ; [facility], [facility] Radiology - MRI MRI Thoracic Spine Low back pain , unspecified 06/22/24 Jc Willingham PA-C Last Documented On 5 2:36PM ; [facility], [facility] Instructions to patient Lose weight Last Documented On 5 4:30PM ; [facility], [facility] Assessments Includes: Assessments for all patient encounters Findings Encounter Date Overweight Non Physician Specified with Faisal Willingham PA-C 06/08/2024 Last Documented On 5 12:36PM ; [facility], [facility] Instructions Includes: Instructions for all patient encounters Instructions to patient Lose weight Last Documented On 5 4:30PM ; [facility], [facility] Medical Equipment - Implanted Devices Includes: Current and historical Devices No Medical Equipment Recorded Medications Includes: Current and historical Medications Current Medications (continue as prescribed) Ciprofloxacin HCl 250 MG Oral Tablet 05/27/2024 Prov ider: Diagnosis: Last Documented On 1:52PM By Corey Stevens ; [facility], [facility] Tamsulosin HCl 0.4 MG Oral Capsule 05/27/2024 Provid er: Diagnosis: Last Documented On 1:52PM By Corey Stevens ; [facility], [facility] Azithromycin 250 MG Oral Tablet 05/23/2024 Provider: Diagnosis: Last Documented On 1:52PM By Corey Stevens ; [facility], [facility] Benzonatate 100 MG Oral Capsule 05/23/2024 Provider: Diagnosis: Last Documented On 1:52PM By Corey Stevens ; [facility], [facility] methylPREDNISolone 4 MG Oral Tablet Therapy Pack 05/23 Provider: Diagnosis: Last Documented On 1:52PM By Corey Stevens ; [facility], [facility] Cefdinir 300 MG Oral Capsule 05/12/2024 Provider: Diagnosis: Last Documented On 1:52PM By Corey Stevens ; [facility], [facility] Promethazine HCl 12.5 MG Oral Tablet 05/12/2024 Prov ider: Diagnosis: Last Documented On 1:52PM By Corey Stevens ; [facility], [facility] HYDROcodone-Acetaminophen 5-325 MG Oral Tablet 025 Provider: Diagnosis: Last Documented On 1:52PM By Corey Stevens ; [facility], [facility] Lidocaine 5% External Patch 05/04/2024 Provider: Diagnosis: Last Documented On 1:53PM By Corey Stevens ; [facility], [facility] Meloxicam 15 MG Oral Tablet 05/03/2024 Provider: Diagnosis: Last Documented On 1:53PM By Corey Stevens ; [facility], [facility] Sulfamethoxazole-Trimethoprim 800-160 MG Oral Tablet 0 05/03/2024 Provider: Diagnosis: Last Documented On 1:53PM By Corey OCHOA [facility] Diphenoxylate-Atropine 2.5-0.025 MG Oral Tablet 2024 Provider: Diagnosis: Last Documented On 1:53PM By Corey Stevens ; [facility] Medications Administered Includes: Administered Medications in patient's chart No Administered Medications Recorded Vital Signs Includes: Vital Signs from 07/22/2023 through 07/21/2024 Vital Name 06/08/2024 02:18P Height (in) 62 Weight (lb) 156 Body Mass Index 28.5 Body Surface Area 1.7 Pain Level 9 Last Documented: On 06/08/2024 2:19PM ; [facility] Results Includes: Results from 07/22/2023 through 07/21/2024 No Results Recorded For Specified Dates History of Present Illness History of Present Illness not supported for this document type No History of Present Illness Recorded Social History Description Last Updated No caffeine use 06/08/2024 Last Documented On 12:36PM ; [facility] No recent change in diet 06/08/2024 Last Documented On 12:36PM ; [facility] Not a current smoker. 06/08/2024 Last Documented On 12:36PM ; [facility] Not exercising regularly 06/08/2024 Last Documented On 12:36PM ; [facility] Not using alcohol 06/08/2024 Last Documented On 12:36PM ; [facility] Not using drugs 06/08/2024 Last Documented On 12:36PM ; [facility] Smoking Status Unknown Procedures and Surgical History Surgical History Last Updated History of appendectomy 06/08/2024 Last Documented On 12:36PM ; [facility] History of heart surgery 06/08/2024 Last Documented On 12:36PM ; [facility] History of History of Gallbladder 2024 Last Documented On 12:36PM ; [facility] History of hysterectomy 06/08/2024 Last Documented On 03/31/202 5 12:36PM ; [facility], [facility] Past Surgical History: Lt forearm, thyro id sx 06/08/2024 Last Documented On 5 12:36PM ; [facility] Medical History Includes: Medical History in patient's chart Description Last Updated History of arthritis 06/08/2024 Last Documented On 5 12:36PM ; [facility] History of asthma 06/08/2024 Last Documented On 5 12:36PM ; [facility] History of depression 06/08/2024 Last Documented On 5 12:36PM ; [facility] History of diverticulitis of colon 06/08 Last Documented On 5 12:36PM ; [facility] History of Fractures 06/08/2024 Last Documented On 5 12:36PM ; [facility] History of History of Blood Transfusion 06/08/2024 Last Documented On 5 12:36PM ; [facility] History of Hypertension 06/08/2024 Last Documented On 5 12:36PM ; [facility] History of Sleep Apnea 06/08/2024 Last Documented On 5 12:36PM ; [facility] History of Thyroid Disease 06/08/2024 Last Documented On 5 12:36PM ; [facility], [facility] Family History Includes: Family History in patient's chart Description Last Updated Diabetes mellitus 06/08/2024 Last Documented On 5 12:36PM ; [facility], [facility] Family history of cancer 06/08/2024 Last Documented On 5 12:36PM ; [facility], [facility] Family history of heart disease 06/08/19 Last Documented On 5 12:36PM ; [facility] Family history of rheumatoid arthritis 0 06/08/2024 Last Documented On 5 12:36PM ; [facility] Family history of systemic hypertension 06/08/2024 Last Documented On 5 12:36PM ; [facility] Stroke / Seizures 06/08/2024 Last Documented On 5 12:36PM ; [facility] Review of Systems Review of Systems not supported for this document type No Review of Systems Recorded Mental Status Description Anxiety Functional Status No Functional Status Recorded Physical Exam Physical Exam not supported for this document type No Physical Exam Recorded Allergies Includes: Active, inactive, and resolved Allergies Substance Type Reaction Onset Date Resolved Date Statu s Sulfur Allergy 06/08/2024 Active Last Documented On 5 4:24PM ; [facility] Penicillins Allergy 06/08/2024 Active Last Documented On 5 4:23PM ; [facility] Lisinopril Allergy 06/08/2024 Active Last Documented On 5 4:25PM ; [facility] Encounters Includes: Encounters from 07/22/2023 through 07/21/2024 Encounter Provider Location Date Check-In Time Check-Out Time Diagnosis Non Physician Specified Jc Willingham PA-C [facility] 06/08/19 25 1:57PM 2:28PM Overweight Insurance Includes: Active Insurance Policies Plan Name Member ID Group # Subscriber Relationship Effect chelsi Dates 1 - [employer]age [id number] Danielle Villanueva Self Clinical Notes Includes: Signed Clinical Notes starting from 03/27/2022 * Progress note Date Encounter Last Documented by 06/08/2024 Non Physician Specified Last doc umented on 07/11/2024; 12:36 PM, Jc Willingham PA-C; [facility] Active Problems & Conditions - Lower Back Pain - Midback Pain Chief Complaint The Chief Complaint is: Mid back pain. Referred Here Referred by. History of Present Illness Danielle Villanueva is a 69 year old female. - Symptoms pain better: sometimes if up and about sitting with cold compress pain worse: anything and everything I do. - Allergy list reviewed - Problem list reviewed - Medication list reviewed - Previous history of new onset pain;fell out of chair 7 weeks ago - Sharp pain Symptoms - Pain is occasional (25% of the time) - Patient pain level from 1-10: 9 - Yes, previous treatment. Dr. Escobar and Maikol - - Review of medications documented Medications used for this condition: pain meds: hydrocodone Patient is here today complaints of thoracic back pain lower back pain she was standing on a chair about 6 weeks ago and she says the chair slipped out from underneath her and she fell landing flat on her back. Pain is more in the thoracic area but does have some lower back pain 2 she has tried cold and heat. The injury date was March 24, [address] scans at that point in time. She denies any radicular symptoms with this. Nothing seems to make the pain better she does not seem to get any relief lying down with this. No history of a fracture. Current Medication - Azithromycin 250 MG Oral Tablet 5 days, 0 refills - Benzonatate 100 MG Oral Capsule 10 days, 0 refills - Cefdinir 300 MG Oral Capsule 7 days, 0 refills - Ciprofloxacin HCl 250 MG Oral Tablet 7 days, 0 refills - Diphenoxylate-Atropine 2.5-0.025 MG Oral Tablet 8 days, 0 refills - HYDROcodone-Acetaminophen 5-325 MG Oral Tablet 7 days, 0 refills - Lidocaine 5% External Patch 30 days, 0 refills - Meloxicam 15 MG Oral Tablet 30 days, 0 refills - methylPREDNISolone 4 MG Oral Tablet Therapy Pack 6 days, 0 refills - Promethazine HCl 12.5 MG Oral Tablet 5 days, 0 refills - Sulfamethoxazole-Trimethoprim 800-160 MG Oral Tablet 14 days, 0 refills - Tamsulosin HCl 0.4 MG Oral Capsule 7 days, 0 refills Past Medical/Surgical History Reported: History of Fractures. Diagnoses: Asthma History of Blood Transfusion Sleep Apnea Thyroid Disease Hypertension. Diverticulitis of colon. Arthritis. Depression Surgical: - Heart surgery - Appendectomy - Past Surgical History: Lt forearm, thyroid sx - Hysterectomy - History of Gallbladder Social History Not a current smoker. Current diet: No recent change in diet. Caffeine use: No caffeine use. Alcohol: Not using alcohol. Drug Use: Not using drugs. Habits: Not exercising regularly. Allergies - Lisinopril - Penicillins - Sulfur Family History Cancer Heart disease Stroke / Seizures Diabetes mellitus Systemic hypertension Rheumatoid arthritis Review Of Systems Systemic: Not feeling tired and no recent weight loss. Recent weight gain. Head: No headache and no sinus pain. Eyes: No vision problems and no Cataracts. Glasses/Contacts. No Glaucoma. Otolaryngeal: Hearing loss. No tinnitus. Cardiovascular: No chest pain or discomfort, no palpitations, no Hypertension, and no High Cholesterol. Pulmonary: Daytime asthma symptoms, chronic cough, and wheezing. Gastrointestinal: No heartburn and no abdominal pain. No Indigestion, no Peptic Ulcer, no GI Stomach Bleed, no Ulcers, and no Acid Reflux. Endocrine: No hot flashes. Muscle weakness. No Diabetes, no Hypothyroid, and no Hyperthyroid. Hematologic: No easy bleeding. A tendency for easy bruising and Anemia. Musculoskeletal: Arthritis and lower back pain. No soft tissue swelling. Pain localized to one or more joints. Neurological: Dizziness. No convulsions and no numbness. Psychological: Anxiety, emotional lability, and depression. No insomnia. Not crying for no reason. Skin: No dry skin. No Ulcers. Scars. No rash. Allergic and Immunologic: No complaint of seasonal allergic reaction. Physical Findings - Vitals taken 06/08/2024 02:18 pm Height 62 in Weight 156 lbs Body Mass Index 28.5 kg/m2 Body Surface Area 1.7 m2 Pain Level 9 She complains of pain in the midthoracic spine around the bra level been some lower lumbar spine pain She has 5/5 EHL gastrocs quadriceps tibialis anterior strength bilaterally 2+ Achilles and patellar reflexes bilaterally negative straight leg raise bilaterally Tests CT scans outside facility from March 2024 shows possible T8 and T11 compression fracture unknown age. Lumbar spine CT did not show any acute fracture Assessment - Overweight Thoracic and lower back pain possible compression fractures at T8 and T11 in the thoracic spine Previous Tests Imaging: CT Scan: CT scan. Available previous imaging studies were reviewed Available previous history reviewed Counseling/Education - Tobacco non-user - Use of tobacco assessment performed - Lose weight Plan StartCited - Low back pain, unspecified Radiology/MRI: MRI Lumbar Spine, MRI Thoracic Spine EndCited - Patient screened for future fall risk: documentation of any fall with injury in past year Fall Risk Assessment: This patient has been identified as a fall risk. Balance/gait along with postural blood pressure, vision and home fall hazards have been assessed. Medications have been reviewed, and recommendations made with regard to contributing factors for future falls. Plan of care: Consideration of vitamin D supplementation along with balance and strength training with consideration for formal physical therapy has been discussed with the patient. Patient was seen by myself Jc Willingham PA-C. Patient will follow up thoracic spine MRI in the lumbar spine MRIs to see if she has a compression fracture. Patient is potentially interested in kyphoplasty. Notes This dictation was done with voice recognition software and may contain errors and omissions.
== END 2024-07-21 23:59 | disposition home or self-care (01) ==
LOC: LAB 12:14
PROVIDERS: PCP Family Medicine; Visit Provider Family Medicine
DX: M99.79 Connective tissue and disc stenosis of intervertebral foramina of abdomen and other regions (principal); W19.XXXA Unspecified fall, initial encounter
CPT/HCPCS: 36415; 82565; 84520

== ENCOUNTER 2024-08-01 15:05 | Outpatient (CLI) | payer MEDICARE, MEDICAID, SELFPAY ==
--- OUTSIDE RECORDS SUMMARY | 2024-08-01 15:08 | XMS_ITS ---
Author Organization [facility] , [facility] Address [address] [place] [address] Phone Care Team Providers Care Slag Skimmer Name Role Phone Rl KATE, Brady Osbonre Unavailable [phone] Problems Includes: Active, inactive, and resolved Problems All Visits Onset Date Resolved Date Provider Condition S tatus Lower Back Pain 06/08/2024 Jc Willingham PA-C A ctive Last Documented On 5 2:26PM ; [facility] Midback Pain 06/08/2024 Jc Willingham PA-C Acti ve Last Documented On 5 1:52PM ; [facility] Plan of Treatment Findings Encounter Date Patient screened for future fall risk: documentation of any fall with injury in past year Non Physician Specified with Jc Willingham PA-C 06/08/2024 Last Documented On 5 12:36PM ; [facility] Pending Tests Order Diagnosis Results Due Ordering P rovider Radiology - MRI MRI Lumbar Spine Low back pain, unspecified 06/22/24 Jc Willingham PA-C Last Documented On 5 2:36PM ; [facility] Radiology - MRI MRI Thoracic Spine Low back pain , unspecified 06/22/24 Jc Willingham PA-C Last Documented On 5 2:36PM ; [facility] Instructions to patient Lose weight Last Documented On 5 4:30PM ; [facility] Assessments Includes: Assessments for all patient encounters Findings Encounter Date Overweight Non Physician Specified with Faisal Willingham PA-C 06/08/2024 Last Documented On 5 12:36PM ; [facility] Instructions Includes: Instructions for all patient encounters Instructions to patient Lose weight Last Documented On 5 4:30PM ; [facility] Medical Equipment - Implanted Devices Includes: Current and historical Devices No Medical Equipment Recorded Medications Includes: Current and historical Medications Current Medications (continue as prescribed) Ciprofloxacin HCl 250 MG Oral Tablet 05/27/2024 Prov ider: Diagnosis: Last Documented On 1:52PM By Corey Stevens ; [facility] Tamsulosin HCl 0.4 MG Oral Capsule 05/27/2024 Provid er: Diagnosis: Last Documented On 1:52PM By Corey Stevens ; [facility] Azithromycin 250 MG Oral Tablet 05/23/2024 Provider: Diagnosis: Last Documented On 1:52PM By Corey Stevens ; [facility] Benzonatate 100 MG Oral Capsule 05/23/2024 Provider: Diagnosis: Last Documented On 1:52PM By Corey Stevens ; [facility] methylPREDNISolone 4 MG Oral Tablet Therapy Pack 05/23 Provider: Diagnosis: Last Documented On 1:52PM By Corey Stevens ; [facility] Cefdinir 300 MG Oral Capsule 05/12/2024 Provider: Diagnosis: Last Documented On 1:52PM By Corey Stevens ; [facility] Promethazine HCl 12.5 MG Oral Tablet 05/12/2024 Prov ider: Diagnosis: Last Documented On 1:52PM By Corey Stevens ; [facility] HYDROcodone-Acetaminophen 5-325 MG Oral Tablet 025 Provider: Diagnosis: Last Documented On 1:52PM By Corey Stevens ; [facility] Lidocaine 5% External Patch 05/04/2024 Provider: Diagnosis: Last Documented On 1:53PM By Corey Stevens ; [facility] Meloxicam 15 MG Oral Tablet 05/03/2024 Provider: Diagnosis: Last Documented On 1:53PM By Corey Stevens ; [facility] Sulfamethoxazole-Trimethoprim 800-160 MG Oral Tablet 0 05/03/2024 Provider: Diagnosis: Last Documented On 1:53PM By Corey OCHOA [facility] Diphenoxylate-Atropine 2.5-0.025 MG Oral Tablet 2024 Provider: Diagnosis: Last Documented On 1:53PM By Corey Stevens ; [facility] Medications Administered Includes: Administered Medications in patient's chart No Administered Medications Recorded Vital Signs Includes: Vital Signs from 08/02/2023 through 08/01/2024 Vital Name 06/08/2024 02:18P Height (in) 62 Weight (lb) 156 Body Mass Index 28.5 Body Surface Area 1.7 Pain Level 9 Last Documented: On 06/08/2024 2:19PM ; [facility] Results Includes: Results from 08/02/2023 through 08/01/2024 No Results Recorded For Specified Dates History of Present Illness History of Present Illness not supported for this document type No History of Present Illness Recorded Social History Description Last Updated No caffeine use 06/08/2024 Last Documented On 12:36PM ; [facility] No recent change in diet 06/08/2024 Last Documented On 12:36PM ; [facility] Not a current smoker. 06/08/2024 Last Documented On 12:36PM ; [facility] Not exercising regularly 06/08/2024 Last Documented On 12:36PM ; [facility] Not using alcohol 06/08/2024 Last Documented On 12:36PM ; [facility] Not using drugs 06/08/2024 Last Documented On 12:36PM ; [facility] Smoking Status Unknown Procedures and Surgical History Surgical History Last Updated History of appendectomy 06/08/2024 Last Documented On 12:36PM ; [facility] History of heart surgery 06/08/2024 Last Documented On 12:36PM ; [facility] History of History of Gallbladder 2024 Last Documented On 12:36PM ; [facility] History of hysterectomy 06/08/2024 Last Documented On 03/31/202 5 12:36PM ; [facility], [facility] Past Surgical History: Lt forearm, thyro id sx 06/08/2024 Last Documented On 5 12:36PM ; [facility] Medical History Includes: Medical History in patient's chart Description Last Updated History of arthritis 06/08/2024 Last Documented On 5 12:36PM ; [facility] History of asthma 06/08/2024 Last Documented On 5 12:36PM ; [facility] History of depression 06/08/2024 Last Documented On 5 12:36PM ; [facility] History of diverticulitis of colon 06/08 Last Documented On 5 12:36PM ; [facility] History of Fractures 06/08/2024 Last Documented On 5 12:36PM ; [facility] History of History of Blood Transfusion 06/08/2024 Last Documented On 5 12:36PM ; [facility] History of Hypertension 06/08/2024 Last Documented On 5 12:36PM ; [facility] History of Sleep Apnea 06/08/2024 Last Documented On 5 12:36PM ; [facility] History of Thyroid Disease 06/08/2024 Last Documented On 5 12:36PM ; [facility], [facility] Family History Includes: Family History in patient's chart Description Last Updated Diabetes mellitus 06/08/2024 Last Documented On 5 12:36PM ; [facility] Family history of cancer 06/08/2024 Last Documented On 5 12:36PM ; [facility] Family history of heart disease 06/08/19 Last Documented On 5 12:36PM ; [facility] Family history of rheumatoid arthritis 0 06/08/2024 Last Documented On 5 12:36PM ; [facility] Family history of systemic hypertension 06/08/2024 Last Documented On 5 12:36PM ; [facility] Stroke / Seizures 06/08/2024 Last Documented On 5 12:36PM ; [facility] Review of Systems Review of Systems not [...] Active Last Documented On 5 4:24PM ; [facility] Penicillins Allergy 06/08/2024 Active Last Documented On 5 4:23PM ; [facility] Lisinopril Allergy 06/08/2024 Active Last Documented On 5 4:25PM ; [facility] Encounters Includes: Encounters from 08/02/2023 through 08/01/2024 Encounter Provider Location Date Check-In Time Check-Out Time Diagnosis Non Physician Specified Jc Willingham PA-C [facility] 06/08/19 25 1:57PM 2:28PM Overweight Insurance Includes: Active Insurance Policies Plan Name Member ID Group # Subscriber Relationship Effect chelsi Dates 1 - [employer]age [id number] Danielle Villanueva Self Clinical Notes Includes: Signed Clinical Notes starting from 03/27/2022 * Progress note Date Encounter Last Documented by 06/08/2024 Non Physician Specified Last doc umented on 07/11/2024; 12:36 PM, Jc Willingham PA-C; [facility] Active Problems & Conditions - Lower Back [...]
--- OUTSIDE RECORDS SUMMARY | 2024-08-01 15:08 | XMS_ITS ---
Care Plan - [facility], [facility] Created on: August 01, 2024 Danielle Villanueva : 1955 Sex: Female Author Organization [facility] , [facility] Address [address] [place] [phone] Phone Care Team Providers Care Metal Extrusion Supervisor Name Role Phone Rl KATE, Brady Osborne Unavailable [phone]
--- OUTSIDE RECORDS SUMMARY | 2024-08-01 15:08 | XMS_ITS | Data Portability ---
Author Organization [facility] [place] & NIKITA Cueva ADMIN Address [address] [place] [phone] Assessment No assessment recorded. Plan of Treatment Reminders Order Date Submit Date Provider Last Modified By Organization Details Last Modified Time Details Appointments None recorded. Lab None recorded. Referral None recorded. Procedures None recorded. Surgeries None recorded. Imaging XR, kidney + ureter + bladder 024 [email or web address] [facility] (Registration ), [address] [facility], [place], [address], 4 16:07:42 Medication Orders Linzess 72 mcg capsule 024 [facility], [address] [place], [address], 4 10:18:45 Patient TargetsNo targets recorded. Patient Instructions Encounter Date Encounter Id Patient Instructions Last Modified By Organization Details Last Modified Time 12/01/2023 [id number] Follow up 2-3 weeks after scopes. [email or web address] Not available 12/02/2023 08:36:58 Reason for Referral None Reported. Results Created Date Observation Date Name Description Value Unit Range Abnormal Flag Note LastModifiedBy Organization Detail LastModifiedTime Result Notes None recorded. Medical Equipment None Reported. Medications Name Sig Start Date Stop Date Status Note LastModified by Organization Details LastModified Time atorvastatin 40 mg tablet active Not Available Not Available Not Available methocarbamo l 500 mg tablet TAKE 1 TABLET BY MOUTH THREE TIMES DAILY NEEDED FOR PAIN FOR 5 DAYS active Not Available Not Available N ot Available venlafaxine ER 75 mg capsule,exte nded release 24 hr active Not Available Not Available Not Available clindamycin HCl 300 mg capsule active Not Available Not Available Not Available nitroglyceri n 0.3 mg sublingual tablet active Not Available Not Available Not Available fluconazole 150 mg tablet TAKE 1 TABLET BY MOUTH TODAY AND REPEAT DOSE IN 72 HOURS NEEDED FOR YEAST INFECTION. active Not Available Not Available N ot Available valsartan 160 mg-hydrochlo rothiazide 12.5 mg tablet TAKE 1 TABLET 1 TIME EACH DAY active Not Available Not Available No t Available diphenoxylat e-atropine 2.5 mg-0.025 mg tablet TAKE 1 TABLET 4 TIMES EACH DAY NEEDED FOR DIARRHEA active Not Available Not Available No t Available metronidazol e 500 mg tablet TAKE 1 TABLET BY MOUTH TWICE DAILY DO NOT DRINK ALCOHOL WHILE TAKING THIS MEDICATION AND THREE DAYS AFTER COMPLETION active Not Available Not Available N ot Available nifedipine ER 30 mg tablet,exten ded release active Not Available Not Available Not Available ciprofloxaci n 250 mg tablet TAKE 1 TABLET 2 TIMES EACH DAY active Not Available Not Available No t Available ciprofloxaci n 500 mg tablet TAKE 1 TABLET BY MOUTH TWICE DAILY active Not Available Not Available No t Available ketorolac 10 mg tablet TAKE 1 TABLET BY MOUTH EVERY 8 HOURS NEEDED FOR PAIN active Not Available Not Available No t Available tamsulosin 0.4 mg capsule TAKE ONE CAPSULE BY MOUTH ONCE DAILY FOR KIDNEY STONE active Not Available Not Available No t Available phenazopyrid ine 100 mg tablet TAKE 1 TABLET BY MOUTH EVERY 8 HOURS NEEDED TAKE FOR PAINFUL URINATION NEEDED WILL TURN URINE ORANGE active Not Available Not Available No t Available promethazine 25 mg tablet TAKE 1 TABLET BY MOUTH THREE TIMES DAILY NEEDED FOR NAUSEA AND VOMITING active Not Available Not Available No t Available nitroglyceri n 0.4 mg sublingual tablet active Not Available Not Available Not Available gabapentin 300 mg capsule TAKE 1 CAPSULE 2 TIMES EACH DAY active Not Available Not Available No t Available mupirocin 2 % topical ointment active Not Available Not Available Not Available Synthroid 112 mcg tablet active Not Available Not Available Not Available ondansetron 4 mg disintegrati ng tablet DISSOLVE 1 TABLET IN MOUTH EVERY 8 HOURS NEEDED FOR NAUSEA AND VOMITING FOR 4 DAYS active Not Available Not Available N ot Available colestipol 1 gram tablet active Not Available Not Available Not Available Ventolin HFA 90 mcg/actuatio n aerosol inhaler active Not Available Not Available Not Available oxycodone 5 mg tablet TAKE 1 TABLET BY MOUTH EVERY 8 HOURS NEEDED FOR PAIN (SCALE SCORE 7-10) PLEASE ONLY TAKE AFTER TYLENOL AND IBUPROFEN HAVE NOT WORKED active Not Available Not Available No t Available nitrofuranto in monohydrate/ macrocrystal s 100 mg capsule TAKE 1 CAPSULE BY MOUTH TWICE DAILY FOR 7 DAYS WITH FOOD active Not Available Not Available No t Available valsartan 320 mg-hydrochlo rothiazide 12.5 mg tablet active Not Available Not Available Not Available desvenlafaxi ne succinate ER 50 mg tablet,exten ded release 24 hr active Not Available Not Available Not Available lidocaine 5 % topical ointment active Not Available Not Available Not Available Vraylar 1.5 mg capsule active Not Available Not Available N ot Available Linzess 72 mcg capsule Take 1 capsule every day by oral route in the morning for 30 days. 2023 active Not Available Not Available Not Avai lable Dupixent 300 mg/2 mL subcutaneous syringe active Not Available Not Available Not Available Dupixent 300 mg/2 mL subcutaneous pen injector active Not Available Not Available Not Available Vitals Date Recorded Body weight Body mass index (BMI) Body height Body temperature Oxygen saturation Oxygen saturation in Arterial blood by Pulse oximetry Heart rate Heart rate Systolic blood pressure Diastolic blood pressure Provider Name and Address Organization Details Last Updated DateTime 4 18204.0 5 g 30.4 kg/m2 157.48 cm 97.9 [degF] 98 % 98 % 62 /min 63 /min 130 mm[Hg] 73 mm[Hg] [facility] [place] 4 09:55:10 Social History None recorded. Functional Status None recorded. Mental Status None recorded. Family History Relationship Description Onset Age of this Age Resolved Age Notes LastModified by Organization Details LastModified Time Father Allergy pt. added direct ly (11/27) [email or web address] Not available 11/28/2023 11:31:18 Father Disorder of endocrine system pt. added direct ly (11/27) [email or web address] Not available 11/28/2023 11:31:32 Father Myocardial infarction pt. added direct ly (11/27) [email or web address] Not available 11/28/2023 11:31:48 Father Hypercholest erolemia pt. added direct ly (11/27) [email or web address] Not available 11/28/2023 11:32:00 Father Mental health problem pt. added direct ly (11/27) [email or web address] Not available 11/28/2023 11:32:41 Medical History No medical history recorded. Gynecological HistoryNo gynecological history recorded. Obstetrics History GPAL:G 0 P 0 0 0 0 Past Encounters Encounter ID Performer Location Encounter Start Date Encounter Closed Date Diagnosis/Indication Diagnosis SNOMED-CT Code Diagnosis ICD10 Code Diagnosis Note [id number] TRISTIAN TORRES NP [facility] [address] [place] [address] 12/01/2023 09:34:02 12/01/2023 12:10:07 Chronic idiopathic constipation 94561587 K59.04 Suspect that she is constipate d with overflow diarrhea. Get KUB today.Tria l low dose Linzess as prescribed . Stop dulcolax and lomotil.Ev aluate with colonoscop y. Abdominal bloating 65612 9008 R14.0 Epigastric pain 56447328 R10.13 EGD recommende d for complaints of epigastric pain and bloating. Imaging re sult abnormal 595002919 R93.89 Colonoscop y recommende d for evaluation of PET scan findings. See HPI for details. Health Concerns Section Related Observation LastModified by Organization Detai ls LastModified Time None Recorded Concern Status LastModified by Organization Details LastModified Time None Recorded Advance Directives Directive None Recorded Payers Encounter Date Sequence Insurance Name Policy Number Policy Huff Covered Member ID Huff Member ID Guarantor Name 12/01/2023 1 [facility] (MEDICARE REPLACEMENT/A DVANTAGE - HMO) [id number] Danielle Villanueva [id number] Danielle Villanueva Notes Date Note Type Note Provider Name and Address Organization Details Recorded Time 12/01/2023 text/html Danielle Villanueva is a 68 yr old female here today by referral for constipation/diarr hea, vomiting, and abdominal pain.Fluctuation between constipation and diarrhea has been ongoing for years. She often goes 5-7 days without BM, takes dulcolax, and then has severe diarrhea. Subsequently she takes Lomotil. This is an exhausting cycle. Occasionally she sees bright red blood on tissue paper. She reports prior diagnosis of IBS. She trialled Metamucil QOD for 1 week (years ago), had okay results, but then stopped it. Her last BM was 4-5 days ago. Her last colonoscopy was reportedly at , she is unsure of when. A PET scan was completed 10/01/23 and notes heterogenous activity within the descending colon could reflect and infectious/inflamm atory etiology. She was seen at [facility] ED in October for complaints of abdominal pain. Labs revealed chronic leukopenia, lipase 412, otherwise unremarkable. According to the ED note she did not meet criteria for pancreatitis. CT found no acute pathology, but did mention a 3 mm focus of increased density in the right psoas muscle, possible kidney stones or a piece of metal. She was discharged. Today she complains of intermittent epigastric pain and bloating. Symptoms have been ongoing since cholecystectomy. She denies GERD symptoms. History of hiatal hernia surgery. She is a poor historian. TRISTIAN TORRES, MARYAM [address] [facility], [place], [address], [facility] [place] [facility] [place] 12/02/2023 08:37:18 OBGyn Episode No OBEpisode recorded.
--- OUTSIDE RECORDS SUMMARY | 2024-08-01 15:08 | XMS_ITS | Clinical Summary ---
Author Organization [facility] , [facility] Address [address] [place] [address] Phone Care Team Providers Care Mail Rider Name Role Phone Rl KATE, Brady Osborne Unavailable [phone] Reason for Visit and Chief Complaint The Chief Complaint is: Mid back pain Problems Includes: Problems addressed during this encounter and other active Problems Current Visit Onset Date Resolved Date Provider Jeffrey barnett Status Lower Back Pain 06/08/2024 Jc Willingham PA-C A ctive Last Documented On 5 2:26PM ; [facility] Midback Pain 06/08/2024 Jc Willingham PA-C Acti ve Last Documented On 5 1:52PM ; [facility] Plan of Treatment - Patient screened for future fall risk: documentation of any fall with injury in past year - Last Documented On 07/11/2024 12:36PM ; [facility] Fall Risk Assessment: This patient has been [...] therapy has been discussed with the patient. - Last Documented On 07/11/2024 12:36PM ; [facility] Patient was seen by myself Jc Willingham PA-C. Patient will follow up thoracic spine MRI in the lumbar spine MRIs to see if she has a compression fracture. Patient is potentially interested in kyphoplasty. - Last Documented On 07/11/2024 12:36PM ; [facility] Pending Tests Order Diagnosis Results Due Ordering P rovider Radiology - MRI MRI Lumbar Spine Low back pain, unspecified 06/22/24 Jc Willingham PA-C Last Documented On 5 2:36PM ; [facility], [facility] Radiology - MRI MRI Thoracic Spine Low back pain , unspecified 06/22/24 Jc Willingham PA-C Last Documented On 5 2:36PM ; [facility], [facility] Instructions to patient Lose weight Last Documented On 4:30PM ; [facility], [facility] Assessments Includes: Assessments from this encounter Findings - Overweight - Last Documented On 07/11/2024 12:36PM ; [facility] Thoracic and lower back pain possible compression fractures at T8 and T11 in the thoracic spine - Last Documented On 07/11/2024 12:36PM ; [facility], [facility] Instructions Includes: Instructions from this encounter Instructions to patient Lose weight Last Documented On 4:30PM ; [facility], [facility] Medical Equipment - Implanted Devices Includes: Current Devices No Medical Equipment Recorded Medications Includes: Medications discussed during this encounter and other current Medications Current Medications (continue as prescribed) Ciprofloxacin HCl 250 MG Oral Tablet 05/27/2024 Prov ider: Diagnosis: Last Documented On 1:52PM By Corey Stevens ; [facility], [facility] Tamsulosin HCl 0.4 MG Oral Capsule 05/27/2024 Provid er: Diagnosis: Last Documented On 1:52PM By Corey Stevens ; [facility], [facility] Azithromycin 250 MG Oral Tablet 05/23/2024 Provider: Diagnosis: Last Documented On 1:52PM By Corey Stevens ; [facility], [facility] Benzonatate 100 MG Oral Capsule 05/23/2024 Provider: Diagnosis: Last Documented On 1:52PM By Corey Stevens ; [facility], [facility] methylPREDNISolone 4 MG Oral Tablet Therapy Pack 05/23 Provider: Diagnosis: Last Documented On 1:52PM By Corey Stevens ; [facility], [facility] Cefdinir 300 MG Oral Capsule 05/12/2024 Provider: Diagnosis: Last Documented On 1:52PM By Corey Stevens ; [facility], [facility] Promethazine HCl 12.5 MG Oral Tablet 05/12/2024 Prov ider: Diagnosis: Last Documented On 1:52PM By Corey Stevens ; [facility], [facility] HYDROcodone-Acetaminophen 5-325 MG Oral Tablet 025 Provider: Diagnosis: Last Documented On 1:52PM By Corey Stevens ; [facility], [facility] Lidocaine 5% External Patch 05/04/2024 Provider: Diagnosis: Last Documented On 1:53PM By Corey Stevens ; [facility], [facility] Meloxicam 15 MG Oral Tablet 05/03/2024 Provider: Diagnosis: Last Documented On 1:53PM By Corey Stevens ; [facility], [facility] Sulfamethoxazole-Trimethoprim 800-160 MG Oral Tablet 0 05/03/2024 Provider: Diagnosis: Last Documented On 1:53PM By Corey Stevens ; [facility], [facility] Diphenoxylate-Atropine 2.5-0.025 MG Oral Tablet 2024 Provider: Diagnosis: Last Documented On 1:53PM By Corey Stevens ; [facility], [facility] Medications Administered Includes: Administered Medications from this encounter No Administered Medications Recorded Vital Signs Includes: Vital Signs from this encounter Vital Name 06/08/2024 02:18P Height (in) 62 Weight (lb) 156 Body Mass Index 28.5 Body Surface Area 1.7 Pain Level 9 Last Documented: On 06/08/2024 2:19PM ; [facility], [facility] Results Includes: Results discussed during this encounter No Results Recorded For Specified Dates History of Present Illness Includes: History of Present Illness from this encounter KELLEN Villanueva is a 69 year old female. [...] Yes, previous treatment. Dr. Escobar and Maikol SAINI - - Review of medications documented Medications [...] with this. No history of a fracture. Social History Description Last Updated No caffeine use 06/08/2024 Last Documented On 12:36PM ; [facility], [facility] No recent change in diet 06/08/2024 Last Documented On 12:36PM ; [facility], [facility] Not a current smoker. 06/08/2024 Last Documented On 12:36PM ; [facility], [facility] Not exercising regularly 06/08/2024 Last Documented On 12:36PM ; [facility] Not using alcohol 06/08/2024 Last Documented On 12:36PM ; [facility] Not using drugs 06/08/2024 Last Documented On 12:36PM ; [facility], [facility] Smoking Status Unknown Procedures and Surgical History Includes: Procedures from this encounter Procedures Code Diagnosis Performing Provider Service L oc[place] [address] Last Documented On 5 4:27PM ; [facility], [facility] Surgical History Last Updated History of appendectomy 06/08/2024 Last Documented On 5 12:36PM ; [facility], [facility] History of heart surgery 06/08/2024 Last Documented On 5 12:36PM ; [facility], [facility] History of History of Gallbladder 2024 Last Documented On 5 12:36PM ; [facility], [facility] History of hysterectomy 06/08/2024 Last Documented On 5 12:36PM ; [facility], [facility] Past Surgical History: Lt forearm, thyro id sx 06/08/2024 Last Documented On 5 12:36PM ; [facility], [facility] Medical History Includes: Medical History addressed during this encounter Description Last Updated History of arthritis 06/08/2024 Last Documented On 5 12:36PM ; [facility] History of asthma 06/08/2024 Last Documented On 5 12:36PM ; [facility] History of depression 06/08/2024 Last Documented On 5 12:36PM ; [facility] History of diverticulitis of colon 06/08 Last Documented On 5 12:36PM ; [facility] History of Fractures 06/08/2024 Last Documented On 5 12:36PM ; [facility] History of History of Blood Transfusion 06/08/2024 Last Documented On 5 12:36PM ; [facility] History of Hypertension 06/08/2024 Last Documented On 5 12:36PM ; [facility] History of Sleep Apnea 06/08/2024 Last Documented On 5 12:36PM ; [facility] History of Thyroid Disease 06/08/2024 Last Documented On 5 12:36PM ; [facility] Family History Includes: Family History addressed during this encounter Description Last Updated Diabetes mellitus 06/08/2024 Last Documented On 5 12:36PM ; [facility] Family history of cancer 06/08/2024 Last Documented On 5 12:36PM ; [facility] Family history of heart disease 06/08/19 Last Documented On 5 12:36PM ; [facility] Family history of rheumatoid arthritis 0 06/08/2024 Last Documented On 5 12:36PM ; [facility] Family history of systemic hypertension 06/08/2024 Last Documented On 5 12:36PM ; [facility] Stroke / Seizures 06/08/2024 Last Documented On 5 12:36PM ; [facility] Review of Systems Includes: Review of Systems from this encounter Systemic: Not feeling tired and no recent [...] Immunologic: No complaint of seasonal allergic reaction. Mental Status Includes: Mental Status from this encounter Description Anxiety Functional Status Includes: Functional Status from this encounter No Functional Status Recorded Physical Exam Includes: Physical Exam from this encounter Allergies Includes: Active Allergies Substance Type Reaction Onset Date Resolved Date Statu s Sulfur Allergy 06/08/2024 Active Last Documented On 5 4:24PM ; [facility] Penicillins Allergy 06/08/2024 Active Last Documented On 5 4:23PM ; [facility] Lisinopril Allergy 06/08/2024 Active Last Documented On 5 4:25PM ; [facility], [facility] Encounters Encounter Provider Location Date Check-In Time Check-Out Time Diagnosis Non Physician Specified Jc Willingham PA-C [facility] 06/08/19 25 1:57PM 2:28PM Overweight Insurance Includes: Active Insurance Policies Plan Name Member ID Group # Subscriber Relationship Effect chelsi Dates 1 - [employer] Medicare Advantage [id number] Danielle Villanueva Self Clinical Notes Includes: Clinical Notes from this encounter * Progress note Date Encounter Last Documented by 06/08/2024 Non Physician Specified Last doc umented on 07/11/2024; 12:36 PM, Jc Willingham PA-C; [facility] Active Problems & Conditions - Lower [...] Yes, previous treatment. Dr. Escobar and Maikol SAINI - - Review of medications documented Medications [...]
== END 2024-08-01 23:59 | disposition home or self-care (01) ==
LOC: RAD 15:05
PROVIDERS: PCP Family Medicine; Visit Provider Family Medicine
DX: R52 Pain, unspecified (principal)

== ENCOUNTER 2024-08-12 14:28 | Outpatient (CLI) | payer MEDICARE, MEDICAID, SELFPAY ==
--- OUTSIDE RECORDS SUMMARY | 2024-08-12 14:30 | XMS_ITS ---
Author Organization [facility] , [facility] Address [address] [place] [address] Phone Care Team Providers Care Supervisor Show Operations Name Role Phone Rl KATE, Brady Osborne Unavailable [phone] Problems Includes: Active, inactive, and resolved Problems All Visits Onset Date Resolved Date Provider Condition S tatus Lower Back Pain 06/08/2024 Jc Willingham PA-C A ctive Last Documented On 5 2:26PM ; [facility], [facility] Midback Pain 06/08/2024 Jc Willingham PA-C Acti ve Last Documented On 5 1:52PM ; [facility], [facility] Plan of Treatment Findings Encounter Date Patient screened for future fall risk: documentation of any fall with injury in past year Non Physician Specified with Jc Willingham PA-C 06/08/2024 Last Documented On 5 12:36PM ; [facility], [facility] Pending Tests Order Diagnosis Results Due Ordering P rovider Radiology - MRI MRI Lumbar Spine Low back pain, unspecified 06/22/24 Jc Willingham PA-C Last Documented On 5 2:36PM ; [facility], [facility] Radiology - MRI MRI Thoracic Spine Low back pain , unspecified 06/22/24 Jc Willingham PA-C Last Documented On 5 2:36PM ; [facility], [facility] Future Appointments Date Time Location Provi jacques Outside Test 08/16/2024 3:00PM [facility] Last Documented On 5 9:35AM ; [facility], [facility] Follow Up 08/29/2024 3:15PM [facility] CRISTY Willingham PA-C Last Documented On 5 12:36PM ; [facility], [facility] Instructions to patient Lose weight Last Documented On 5 4:30PM ; [facility], [facility] Assessments Includes: Assessments for all patient encounters Findings Encounter Date Overweight Non Physician Specified with Faisal Willingham PA-C 06/08/2024 Last Documented On 5 12:36PM ; [facility], [facility] Instructions Includes: Instructions for all patient encounters Instructions to patient Lose weight Last Documented On 5 4:30PM ; [facility], [facility] Medical Equipment - Implanted Devices Includes: Current and historical Devices No Medical Equipment Recorded Medications Includes: Current and historical Medications Current Medications (continue as prescribed) Ciprofloxacin HCl 250 MG Oral Tablet 05/27/2024 Prov ider: Diagnosis: Last Documented On 1:52PM By Corey Stevens ; [facility], [facility] Tamsulosin HCl 0.4 MG Oral Capsule 05/27/2024 Provid er: Diagnosis: Last Documented On 1:52PM By Corey Stevens ; [facility], [facility] Azithromycin 250 MG Oral Tablet 05/23/2024 Provider: Diagnosis: Last Documented On 1:52PM By Corey Stevens ; [facility], [facility] Benzonatate 100 MG Oral Capsule 05/23/2024 Provider: Diagnosis: Last Documented On 1:52PM By Corey Stevens ; [facility], [facility] methylPREDNISolone 4 MG Oral Tablet Therapy Pack 05/23 Provider: Diagnosis: Last Documented On 1:52PM By Corey Stevens ; [facility], [facility] Cefdinir 300 MG Oral Capsule 05/12/2024 Provider: Diagnosis: Last Documented On 1:52PM By Corey Stevens ; [facility], [facility] Promethazine HCl 12.5 MG Oral Tablet 05/12/2024 Prov ider: Diagnosis: Last Documented On 1:52PM By Corey Stevens ; [facility], [facility] HYDROcodone-Acetaminophen 5-325 MG Oral Tablet 025 Provider: Diagnosis: Last Documented On 1:52PM By Corey Stevens ; [facility], [facility] Lidocaine 5% External Patch 05/04/2024 Provider: Diagnosis: Last Documented On 1:53PM By Corey Stevens ; [facility] Meloxicam 15 MG Oral Tablet 05/03/2024 Provider: Diagnosis: Last Documented On 5 1:53PM By Corey Stevens ; [facility] Sulfamethoxazole-Trimethoprim 800-160 MG Oral Tablet 0 05/03/2024 Provider: Diagnosis: Last Documented On 5 1:53PM By Corey Stevens ; [facility], [facility] Diphenoxylate-Atropine 2.5-0.025 MG Oral Tablet 2024 Provider: Diagnosis: Last Documented On 5 1:53PM By Corey Stevens ; [facility], [facility] Medications Administered Includes: Administered Medications in patient's chart No Administered Medications Recorded Vital Signs Includes: Vital Signs from 08/13/2023 through 08/12/2024 Vital Name 06/08/2024 02:18P Height (in) 62 Weight (lb) 156 Body Mass Index 28.5 Body Surface Area 1.7 Pain Level 9 Last Documented: On 06/08/2024 2:19PM ; [facility], [facility] Results Includes: Results from 08/13/2023 through 08/12/2024 No Results Recorded For Specified Dates History of Present Illness History of Present Illness not supported for this document type No History of Present Illness Recorded Social History Description Last Updated No caffeine use 06/08/2024 Last Documented On 12:36PM ; [facility] No recent change in diet 06/08/2024 Last Documented On 12:36PM ; [facility] Not a current smoker. 06/08/2024 Last Documented On 12:36PM ; [facility], [facility] Not exercising regularly 06/08/2024 Last Documented On 12:36PM ; [facility] Not using alcohol 06/08/2024 Last Documented On 12:36PM ; [facility], [facility] Not using drugs 06/08/2024 Last Documented On 12:36PM ; [facility], [facility] Smoking Status Unknown Procedures and Surgical History Surgical History Last Updated History of appendectomy 06/08/2024 Last Documented On 03/31/202 5 12:36PM ; [facility], [facility] History of heart surgery 06/08/2024 Last Documented On 5 12:36PM ; [facility], [facility] History of History of Gallbladder 2024 Last Documented On 5 12:36PM ; [facility], [facility] History of hysterectomy 06/08/2024 Last Documented On 5 12:36PM ; [facility], [facility] Past Surgical History: Lt forearm, thyro id sx 06/08/2024 Last Documented On 5 12:36PM ; [facility] Medical History Includes: Medical History in patient's chart Description Last Updated History of arthritis 06/08/2024 Last Documented On 5 12:36PM ; [facility], [facility] History of asthma 06/08/2024 Last Documented On 5 12:36PM ; [facility], [facility] History of depression 06/08/2024 Last Documented On 5 12:36PM ; [facility], [facility] History of diverticulitis of colon 06/08 Last Documented On 5 12:36PM ; [facility], [facility] History of Fractures 06/08/2024 Last Documented On 5 12:36PM ; [facility], [facility] History of History of Blood Transfusion 06/08/2024 Last Documented On 5 12:36PM ; [facility], [facility] History of Hypertension 06/08/2024 Last Documented On 5 12:36PM ; [facility], [facility] History of Sleep Apnea 06/08/2024 Last Documented On 5 12:36PM ; [facility], [facility] History of Thyroid Disease 06/08/2024 Last Documented On 5 12:36PM ; [facility], [facility] Family History Includes: Family History in patient's chart Description Last Updated Diabetes mellitus 06/08/2024 Last Documented On 5 12:36PM ; [facility], [facility] Family history of cancer 06/08/2024 Last Documented On 5 12:36PM ; [facility] Family history of heart disease 06/08/19 25 Last Documented On 5 12:36PM ; [facility] Family history of rheumatoid arthritis 0 06/08/2024 Last Documented On 5 12:36PM ; [facility] Family history of systemic hypertension 06/08/2024 Last Documented On 5 12:36PM ; [facility] Stroke / Seizures 06/08/2024 Last Documented On 5 12:36PM ; [facility] Review of Systems Review of [...] Active Last Documented On 5 4:24PM ; [facility] Penicillins Allergy 06/08/2024 Active Last Documented On 5 4:23PM ; [facility] Lisinopril Allergy 06/08/2024 Active Last Documented On 5 4:25PM ; [facility] Encounters Includes: Encounters from 08/13/2023 through 08/12/2024 Encounter Provider Location Date Check-In Time Check-Out Time Diagnosis Non Physician Specified Jc Willingham PA-C [facility] 06/08/19 25 1:57PM 2:28PM Overweight Insurance Includes: Active Insurance Policies Plan Name Member ID Group # Subscriber Relationship Effect chelsi Dates 1 - [employer] Medicare Advantage [id number] Danielle Villanueva Self Clinical Notes Includes: Signed Clinical Notes starting from 03/27/2022 * Progress note Date Encounter Last Documented by 06/08/2024 Non Physician Specified Last doc umented on 07/11/2024; 12:36 PM, Jc Willingham PA-C; [facility] Active Problems & Conditions - [...]
--- OUTSIDE RECORDS SUMMARY | 2024-08-12 14:30 | XMS_ITS ---
Care Plan - [facility], [facility] Created on: August 12, 2024 Danielle Villanueva : 1955 Sex: Female Author Organization [facility] , [facility] Address [address] [place] [phone] Phone Care Team Providers Care Voip Network Engineer Name Role Phone Rl KATE, Brady Osborne Unavailable [phone]
--- OUTSIDE RECORDS SUMMARY | 2024-08-12 14:31 | XMS_ITS | Data Portability ---
Author Organization [facility] [place] & NIKITA Cueva ADMIN Address [address] [place] [id number] Assessment No assessment recorded. Plan of Treatment Reminders Order Date Submit Date Provider Last Modified By Organization Details Last Modified Time Details Appointments None recorded. Lab None recorded. Referral None recorded. Procedures None recorded. Surgeries None recorded. Imaging XR, kidney + ureter + bladder 024 [email or web address] [facility] (Registration ), [address] [facility], [place], [address], 4 16:07:42 Medication Orders Linzess 72 mcg capsule 024 [facility], [address] [place], [address], 4 10:18:45 Patient TargetsNo targets recorded. Patient Instructions Encounter Date Encounter Id Patient Instructions Last Modified By Organization Details Last Modified Time 12/01/2023 [id number] Follow up 2-3 weeks after scopes. [email or web address] Not available 12/02/2023 08:36:58 Reason for Referral [...] Address Organization Details Last Updated DateTime 4 56843.0 5 g 30.4 kg/m2 157.48 cm 97.9 [degF] 98 % 98 % 62 /min 63 /min 130 mm[Hg] 73 mm[Hg] [facility] & [place] 4 09:55:10 Social History None recorded. Functional [...] SNOMED-CT Code Diagnosis ICD10 Code Diagnosis Note [id number] TRISTIAN TORRES NP [id number] [address] [place] [address] 12/01/2023 09:34:02 12/01/2023 12:10:07 Chronic idiopathic constipation 11744124 K59.04 Suspect that she is constipate d with overflow diarrhea. Get KUB today.Tria l low dose Linzess as prescribed . Stop dulcolax and lomotil.Ev aluate with colonoscop y. Abdominal bloating 38647 9008 R14.0 Epigastric pain 42546996 R10.13 EGD recommende d for complaints of epigastric pain and bloating. Imaging re sult abnormal [id number] R93.89 Colonoscop y recommende d for evaluation [...] Huff Member ID Guarantor Name 12/01/2023 1 [facility] (MEDICARE REPLACEMENT/A DVANTAGE - HMO) [id number] Danielle Villanueva [id number] Danielle Villanueva Notes Date Note Type Note [...] infectious/inflamm atory etiology. She was seen at [facility] ED in October for complaints of [...] is a poor historian. TRISTIAN TORRES, MARYAM [address] [facility], [place], [address], [facility] [place] - [place] & [place] 12/02/2023 08:37:18 OBGyn Episode No OBEpisode recorded.
--- OUTSIDE RECORDS SUMMARY | 2024-08-12 14:31 | XMS_ITS | Clinical Summary ---
Author Organization [facility] , [facility] Address [address] [place] [address] Phone Care Team Providers Care Telemetry Tech Name Role Phone Rl KATE, Brady Osborne Unavailable [phone] Reason for Visit and Chief Complaint The Chief Complaint is: Mid back pain Problems Includes: Problems addressed during this encounter and other active Problems Current Visit Onset Date Resolved Date Provider Jeffrey barnett Status Lower Back Pain 06/08/2024 Jc Willingham PA-C A ctive Last Documented On 5 2:26PM ; [facility] Midback Pain 06/08/2024 Jc Willingham PA-C Acti ve Last Documented On 5 1:52PM ; [facility] Plan of Treatment - Patient screened for future fall risk: documentation of any fall with injury in past year - Last Documented On 07/11/2024 12:36PM ; [facility] Fall Risk Assessment: This patient has [...] - Last Documented On 07/11/2024 12:36PM ; [facility] Patient was seen by myself Jc Willingham PA-C. Patient will follow up thoracic spine MRI in the lumbar spine MRIs to see if she has a compression fracture. Patient is potentially interested in kyphoplasty. - Last Documented On 07/11/2024 12:36PM ; [facility] Pending Tests Order Diagnosis Results Due Ordering P rovider Radiology - MRI MRI Lumbar Spine Low back pain, unspecified 06/22/24 Jc Willingham PA-C Last Documented On 5 2:36PM ; [facility] Radiology - MRI MRI Thoracic Spine Low back pain , unspecified 06/22/24 Jc Willingham PA-C Last Documented On 5 2:36PM ; [facility] Future Appointments Date Time Location Provi jacques Outside Test 08/16/2024 3:00PM [facility] Last Documented On 5 9:35AM ; [facility], [facility] Follow Up 08/29/2024 3:15PM [facility] Jc Willingham PA-C Last Documented On 5 12:36PM ; [facility] Instructions to patient Lose weight Last Documented On 5 4:30PM ; [facility] Assessments Includes: Assessments from this encounter Findings - Overweight - Last Documented On 07/11/2024 12:36PM ; [facility] Thoracic and lower back pain possible compression fractures at T8 and T11 in the thoracic spine - Last Documented On 07/11/2024 12:36PM ; [facility], [facility] Instructions Includes: Instructions from this encounter Instructions to patient Lose weight Last Documented On 5 4:30PM ; [facility] Medical Equipment - Implanted Devices Includes: Current Devices No Medical Equipment Recorded Medications Includes: Medications discussed during this encounter and other current Medications Current Medications (continue as prescribed) Ciprofloxacin HCl 250 MG Oral Tablet 05/27/2024 Prov ider: Diagnosis: Last Documented On 1:52PM By Corey Stevens ; [facility], [facility] Tamsulosin HCl 0.4 MG Oral Capsule 05/27/2024 Provid er: Diagnosis: Last Documented On 1:52PM By Corey Stevens ; [facility] Azithromycin 250 MG Oral Tablet 05/23/2024 Provider: Diagnosis: Last Documented On 5 1:52PM By Corey Stevens ; [facility] Benzonatate 100 MG Oral Capsule 05/23/2024 Provider: Diagnosis: Last Documented On 5 1:52PM By Corey Stevens ; [facility] methylPREDNISolone 4 MG Oral Tablet Therapy Pack 05/23 Provider: Diagnosis: Last Documented On 1:52PM By Corey Stevens ; [facility] Cefdinir 300 MG Oral Capsule 05/12/2024 Provider: Diagnosis: Last Documented On 1:52PM By Corey Stevens ; [facility], [facility] Promethazine HCl 12.5 MG Oral Tablet 05/12/2024 Prov ider: Diagnosis: Last Documented On 1:52PM By Corey Stevens ; [facility], [facility] HYDROcodone-Acetaminophen 5-325 MG Oral Tablet 025 Provider: Diagnosis: Last Documented On 1:52PM By Corey Stevens ; [facility], [facility] Lidocaine 5% External Patch 05/04/2024 Provider: Diagnosis: Last Documented On 1:53PM By Corey Stevens ; [facility], [facility] Meloxicam 15 MG Oral Tablet 05/03/2024 Provider: Diagnosis: Last Documented On 1:53PM By Corey Stevens ; [facility] Sulfamethoxazole-Trimethoprim 800-160 MG Oral Tablet 0 05/03/2024 Provider: Diagnosis: Last Documented On 1:53PM By Corey Stevens ; [facility] Diphenoxylate-Atropine 2.5-0.025 MG Oral Tablet 2024 Provider: Diagnosis: Last Documented On 1:53PM By Corey Stevens ; [facility], [facility] Medications Administered Includes: Administered Medications from this encounter No Administered Medications Recorded Vital Signs Includes: Vital Signs from this encounter Vital Name 06/08/2024 02:18P Height (in) 62 Weight (lb) 156 Body Mass Index 28.5 Body Surface Area 1.7 Pain Level 9 Last Documented: On 06/08/2024 2:19PM ; [facility], [facility] Results Includes: Results discussed during this encounter [...] use 06/08/2024 Last Documented On 12:36PM ; [facility], [facility] No recent change in diet 06/08/2024 Last Documented On 5 12:36PM ; [facility] Not a current smoker. 06/08/2024 Last Documented On 5 12:36PM ; [facility] Not exercising regularly 06/08/2024 Last Documented On 5 12:36PM ; [facility] Not using alcohol 06/08/2024 Last Documented On 5 12:36PM ; [facility] Not using drugs 06/08/2024 Last Documented On 5 12:36PM ; [facility] Smoking Status Unknown Procedures and Surgical History Includes: Procedures from this encounter Procedures Code Diagnosis Performing Provider Service L oc[place] [address] Last Documented On 5 4:27PM ; [facility] Surgical History Last Updated History of appendectomy 06/08/2024 Last Documented On 5 12:36PM ; [facility] History of heart surgery 06/08/2024 Last Documented On 5 12:36PM ; [facility], [facility] History of History of Gallbladder 2024 Last Documented On 5 12:36PM ; [facility], [facility] History of hysterectomy 06/08/2024 Last Documented On 5 12:36PM ; [facility], [facility] Past Surgical History: Lt forearm, thyro id sx 06/08/2024 Last Documented On 5 12:36PM ; [facility] Medical History Includes: Medical History addressed during this encounter Description Last Updated History of arthritis 06/08/2024 Last Documented On 5 12:36PM ; [facility] History of asthma 06/08/2024 Last Documented On 5 12:36PM ; [facility] History of depression 06/08/2024 Last Documented On 5 12:36PM ; [facility] History of diverticulitis of colon 06/08 Last Documented On 5 12:36PM ; [facility], [facility] History of Fractures 06/08/2024 Last Documented On 5 12:36PM ; [facility], [facility] History of History of Blood Transfusion 06/08/2024 Last Documented On 5 12:36PM ; [facility], [facility] History of Hypertension 06/08/2024 Last Documented On 5 12:36PM ; [facility], [facility] History of Sleep Apnea 06/08/2024 Last Documented On 5 12:36PM ; [facility], [facility] History of Thyroid Disease 06/08/2024 Last Documented On 5 12:36PM ; [facility], [facility] Family History Includes: Family History addressed during this encounter Description Last Updated Diabetes mellitus 06/08/2024 Last Documented On 5 12:36PM ; [facility], [facility] Family history of cancer 06/08/2024 Last Documented On 5 12:36PM ; [facility], [facility] Family history of heart disease 06/08/19 Last Documented On 5 12:36PM ; [facility], [facility] Family history of rheumatoid arthritis 0 06/08/2024 Last Documented On 5 12:36PM ; [facility], [facility] Family history of systemic hypertension 06/08/2024 Last Documented On 5 12:36PM ; [facility] Stroke / Seizures 06/08/2024 Last Documented On 5 12:36PM ; [facility] Review of Systems Includes: Review of Systems [...] Active Last Documented On 5 4:24PM ; [facility] Penicillins Allergy 06/08/2024 Active Last Documented On 5 4:23PM ; [facility] Lisinopril Allergy 06/08/2024 Active Last Documented On 5 4:25PM ; [facility] Encounters Encounter Provider Location Date Check-In Time Check-Out Time Diagnosis Non Physician Specified Jc Willingham PA-C [facility] 06/08/19 25 1:57PM 2:28PM Overweight Insurance Includes: Active Insurance Policies Plan Name Member ID Group # Subscriber Relationship Effect chelsi Dates 1 - [employer] Advantage [id number] Danielle Villanueva Self Clinical Notes Includes: Clinical Notes from this encounter * Progress note Date Encounter Last Documented by 06/08/2024 Non Physician Specified Last doc umented on 07/11/2024; 12:36 PM, Jc Willingham PA-C; [facility], [facility] Active Problems & Conditions - Lower Back [...]
--- NOTE | 2024-08-12 15:30 | MR_ITS ---
PROCEDURE INFORMATION: Exam: MR Cervical Spine Without and With Contrast Exam date and time: 08/12/2024 3:29 PM Age: 69 years old Clinical indication: Cervicalgia and neck pain; Additional info: Pain, radiates down both arms TECHNIQUE: Imaging protocol: Magnetic resonance imaging of the cervical spine without and with contrast. Contrast material: ISOVUE; Contrast volume: 14 ml; Contrast route: IV; COMPARISON: CT CERVICAL SPINE WO CON 03/24/2024 2:56 PM FINDINGS: Bones/joints: Reversal of the cervical lordosis. Moderate spondylosis. No acute fracture. Spinal cord: Normal signal. No cord compression. C2-C3: No significant disc bulge or herniation. No severe spinal canal stenosis. No significant neural foraminal narrowing. C3-C4: Mild disc osteophyte complex. No severe spinal canal stenosis. Mild left-sided neural foraminal narrowing. C4-C5: Mild disc osteophyte complex causes mild spinal canal stenosis. Mild left and severe right-sided neural foraminal narrowing. C5-C6: Mild disc osteophyte complex. No severe spinal canal stenosis. Severe right sided neural foraminal narrowing. C6-C7: Mild disc osteophyte complex. No severe spinal canal stenosis. Moderate-severe bilateral neural foraminal narrowing. C7-T1: No significant disc bulge or herniation. No severe spinal canal stenosis. Mild right-sided neural foraminal narrowing. Soft tissues: Unremarkable. Vasculature: Expected flow voids in the vertebral arteries. IMPRESSION: 1. Moderate spondylosis with multilevel neural foraminal narrowing most severe at right C4-C5, C5-C6, and bilateral C6-C7. 2. No significant spinal canal stenosis.
[2024-08-12] MEDS: GADOTERIDOL INJ 20ML SYRINGE 14 ML IV (16:19)
== END 2024-08-12 23:59 | disposition home or self-care (01) ==
LOC: RAD 14:29
PROVIDERS: PCP Family Medicine; Visit Provider Family Medicine
DX: M54.2 Cervicalgia (principal)
CPT/HCPCS: 72156; A9576

== ENCOUNTER 2024-08-16 15:49 | Outpatient (CLI) | payer MEDICARE, MEDICAID, SELFPAY ==
--- OUTSIDE RECORDS SUMMARY | 2024-08-16 15:51 | XMS_ITS | Data Portability ---
Author Organization [facility] [place] & NIKITA Cueva ADMIN Address [address] [place] [address] Assessment No assessment recorded. Plan of Treatment Reminders Order Date Submit Date Provider Last Modified By Organization Details Last Modified Time Details Appointments None recorded. Lab None recorded. Referral None recorded. Procedures None recorded. Surgeries None recorded. Imaging XR, kidney + ureter + bladder 024 [email or web address] [facility] (Registration ), [address] [facility], [place], [address], 4 16:07:42 Medication Orders Linzess 72 mcg capsule 024 Count includes the [facility], [address] [place], [place], [address], 4 10:18:45 Patient TargetsNo targets recorded. Patient Instructions Encounter Date Encounter Id Patient Instructions Last Modified By Organization Details Last Modified Time 12/01/2023 [id number] Follow up 2-3 weeks after scopes. [email or web address] Not available 12/02/2023 08:36:58 Reason for Referral [...] Address Organization Details Last Updated DateTime 4 01025.0 5 g 30.4 kg/m2 157.48 cm 97.9 [degF] 98 % 98 % 62 /min 63 /min 130 mm[Hg] 73 mm[Hg] [facility] [place] 4 09:55:10 Social History None recorded. Functional [...] SNOMED-CT Code Diagnosis ICD10 Code Diagnosis Note [id number] TRISTIAN TORRES NP [facility] [address] [place] [address] 12/01/2023 09:34:02 12/01/2023 12:10:07 Chronic idiopathic constipation 04278135 K59.04 Suspect that she is constipate d with overflow diarrhea. Get KUB today.Tria l low dose Linzess as prescribed . Stop dulcolax and lomotil.Ev aluate with colonoscop y. Abdominal bloating 51986 9008 R14.0 Epigastric pain 31357117 R10.13 EGD recommende d for complaints of epigastric pain and bloating. Imaging re sult abnormal [id number] R93.89 Colonoscop y recommende d for evaluation [...] Huff Member ID Guarantor Name 12/01/2023 1 [facility] (MEDICARE REPLACEMENT/A DVANTAGE - HMO) [id number] Danielle Villanueva [id number] Danielle Villanueva Notes Date Note Type Note [...] infectious/inflamm atory etiology. She was seen at [facility] ED in October for complaints of abdominal [...] is a poor historian. TRISTIAN TORRES, MARYAM [address] [facility], [place], [address], [facility] [place] [facility] [place] [facility] [place] 12/02/2023 08:37:18 OBGyn Episode No OBEpisode recorded.
--- NOTE | 2024-08-16 15:52 | MR_ITS ---
PROCEDURE INFORMATION: Exam: MR Thoracic Spine Without Contrast Exam date and time: 08/16/2024 4:33 PM Age: 69 years old Clinical indication: Pain in thoracic spine; Additional info: Pain between shoulder and goes down. Recent fall TECHNIQUE: Imaging protocol: Magnetic resonance imaging of the thoracic spine without contrast. COMPARISON: CT THORACIC SPINE WO CON 03/24/2024 2:59 PM MRI lumbar spine obtained concurrently. MR CERVICAL SPINE WO/W CON 08/12/2024 3:29 PM FINDINGS: Bones/joints: Mild cervicothoracic levoconvex scoliosis and midthoracic dextroconvex scoliosis. Mild exaggeration of the midthoracic kyphosis. No acute fracture seen. A gwqa-mx-bwbpnfcc chronic T9 superior endplate compression fracture. There is excavation of the superior endplate by a Schmorl's node with endplate edema. Mild, chronic T12 superior endplate compression with a smaller Schmorl's node present. These compression deformities were previously demonstrated. No significant osseous retropulsion. Mild mid and lower thoracic degenerative disc disease. Subtle posterior disc contour abnormalities at multiple levels do not contribute to central spinal canal stenoses; fairly minimal ventral thecal sac indentation. No high-grade thoracic foraminal stenoses. Bilateral foraminal stenoses are noted at C7-T1. Spinal epidural space: No evidence of epidural hematoma. Spinal cord: Normal signal. No cord compression. Soft tissues: Unremarkable. The lumbar spine is reported separately. IMPRESSION: No evidence of recent thoracic compression deformity.
--- NOTE | 2024-08-16 15:52 | MR_ITS ---
PROCEDURE INFORMATION: Exam: MR Lumbar Spine Without Contrast Exam date and time: 08/16/2024 4:33 PM Age: 69 years old Clinical indication: Low back pain; Additional info: Plates screws lt arm pain/ lumbar pain TECHNIQUE: Imaging protocol: Magnetic resonance imaging of the lumbar spine without contrast. COMPARISON: 1. CT LUMBAR SPINE WO CON 03/24/2024 3:02 PM FINDINGS: Bones/joints: Transitional anatomy of the lumbosacral junction. The S1 vertebral segment is lumbarized, an S1-S2 disc present. L5-S1 is considered to be the last full size disc space, level of disc degeneration, image 18 of series 7 the T2 weighted sequence. Mild to moderate levoconvex scoliosis. Slight right lateral listhesis of L3 on L4 and left lateral listhesis of L4 on L5. No acute fracture seen. Spinal cord: The conus medullaris ends normally at the L2 level. Disc desiccation throughout. Disc height loss and spondylosis is moderate at L3-L4 and L4-L5, mild to moderate at L1-L2, mild elsewhere. L1-L2: Mild disc bulge and utbu-wr-zqftioda facet arthropathy. No significant stenoses. L2-L3: Mild disc bulge as well as mild to moderate facet arthropathy and ligamentum flavum buckling. Central spinal canal and left lateral recess stenoses are mild. Mild bilateral neural foraminal stenoses. L3-L4: Moderate diffuse disc osteophyte complex, facet arthropathy and ligamentum flavum buckling. Central spinal canal stenosis is moderate. The lateral recesses are narrowed near the L4 nerve roots, more so on the right. Wghp-up-iwzffrkq right and mild left neural foraminal stenoses. L4-L5: Moderate diffuse disc osteophyte complex as well as marked right and moderate left facet arthropathy with right greater than left ligamentum flavum buckling. Central spinal canal stenosis is moderate. The right lateral recess is narrowed near the right L5 nerve root. Cvyk-eh-okznxyha bilateral neural foraminal stenoses. L5-S1: Mild to moderate diffuse disc bulge as well as moderate facet arthropathy and ligamentum flavum buckling. Central spinal canal stenosis is mild. Tosl-nh-jxocjjsq narrowing of the lateral recesses, more so on the left. Mild bilateral neural foraminal stenoses. S1-S2: The S1 vertebral segment is lumbarized. The intervertebral disc is present. Mild to moderate facet arthropathy. No significant stenoses. Soft tissues: Unremarkable. IMPRESSION: 1. Transitional anatomy at the lumbosacral junction. The S1 vertebral segment is lumbarized. 2. Degenerative changes and stenoses are detailed above, for example moderate central spinal canal stenoses at L3-L4 and L4-L5.
== END 2024-08-16 23:59 | disposition home or self-care (01) ==
LOC: RAD 15:49
PROVIDERS: PCP Family Medicine; Visit Provider Specialist/Technologist Athletic Trainer
DX: M54.6 Pain in thoracic spine (principal); M54.50 Low back pain, unspecified
CPT/HCPCS: 72146; 72148